=== PATIENT | female | born 1945 | race Caucasian/White ===

== ENCOUNTER 2019-04-07 13:00 | Outpatient (CLI) | payer MEDICARE, SELFPAY ==
[2019-04-07 13:24] LABS: Basophils Absolute Auto 0.1 K/mm3 (0.0-0.1); Basophils Percent Auto 0.8 % (0.2-1.2); Eosinophils Absolute Auto 0.2 K/mm3 (0-0.3); Eosinophils Percent Auto 2.8 % (0-4.4); Hematocrit 38.3 % (37.0-47.0); Hemoglobin 12.6 g/dL (12.0-15.0); Immature Granulocyte Absolute 0.01 K/mm3 (0.00-0.031); Immature Granulocyte Percent A 0.2 % (0-0.5); Lymphocytes Absolute Auto 2.12 K/mm3 (0.9-3.2); Lymphocytes Percent Auto 34.9 % (18.3-44.2); Mean Corpuscular HGB Conc 32.9 g/dl (32-36); Mean Corpuscular Hemoglobin 30.2 pg (26-34); Mean Corpuscular Volume 91.8 fl (80-100); Mean Platelet Volume 12.1 fl (7.4-10.4); Monocytes Absolute Auto 0.7 K/mm3 (0.1-0.6); Monocytes Percent Auto 11.2 % (2.6-8.5); Neutrophils Absolute Auto 3.1 K/mm3 (1.3-6.7); Neutrophils Percent Auto 50.1 % (45.5-73.1); Platelet Count Result 155 k/mm3 (150-375); Red Blood Count 4.17 M/mm3 (4.2-5.4); Red Cell Distribution Width 13.9 % (11.5-14.5); White Blood Count 6.1 K/mm3 (4.5-10.0)
[2019-04-07 13:27] LABS: Blood Urea Nitrogen 11 mg/dL (8-26); Carbon Dioxide 25 mmol/L (22-30); Chloride 103 mmol/L (98-109); Estimated Glomerular Filt Rate > 60; Glucose 115 mg/dL (70-105); Potassium 3.9 mmol/L (3.5-4.9); Sodium 140 mmol/L (138-146)
[2019-04-07 16:55] LABS: Alanine Aminotransferase 12 U/L (4-35); Albumin Level 3.4 g/dL (3.5-5.1); Alkaline Phosphatase 130 U/L (38-126); Aspartate Amino Transferase 20 U/L (14-36); Bilirubin,Total 0.6 mg/dL (0.2-1.3); Blood Urea Nitrogen 11 mg/dL (7-17); Calcium 8.8 mg/dL (8.4-10.2); Carbon Dioxide 25 mmol/L (22-30); Chloride 102 mmol/L (98-107); Estimated Glomerular Filt Rate > 60; Glucose 114 mg/dL (65-105); Potassium 4.2 mmol/L (3.4-5.0); Sodium 139 mmol/L (137-145)
== END 2019-04-07 13:01 | disposition home or self-care (01) ==
PROVIDERS: PCP Internal Medicine; Visit Provider Internal Medicine Hematology & Oncology
DX: D69.3 Immune thrombocytopenic purpura (principal)
CPT/HCPCS: 36415; 80048; 80053; 85025

== ENCOUNTER 2019-07-15 16:55 | IRF | payer MEDICARE, SELFPAY ==
--- NOTE | ~2019-07-15 | US_ITS ---
EXAMINATION:US venous doppler LE BI INDICATION:Right leg pain and edema TECHNIQUE: Multiple grayscale, color flow and Doppler images of the right lower extremity deep venous systems were obtained and reviewed. COMPARISON:No prior studies for comparison. FINDINGS: There is extensive deep venous thrombosis of the right lower extremity including the femora l, popliteal, posterior tibial, peroneal, gastrocnemius and greater saphenous veins. There is normal flow, compressibility and augmentation the left lower extremity veins. IMPRESSION: 1: Extensive deep venous thrombosis of the right lower extremity. Findings communicated to the [facility] Rhina etienne, by Dr. Wood on 07/26/2019 12:38 PM. Reviewed, dictated and finalized at location A. IMPRESSION: 1: Extensive deep venous thrombosis of the right lower extremity. Findings communicated to the [facility] Rhina etienne, by Dr. Wood on 07/26/2019 12:38 PM .
[2019-07-15 16:55] VITALS: BP 141/75; PULSE 76; RESP 19; TEMP 36.2; O2SAT 99; BMI 39.9
--- NOTE | 2019-07-15 17:31 | ADMGEN ---
This patient, Ricarda Stephen, was admitted to [facility] Room 224-02. Patient/family oriented to hospital policies and general routines including ID bracelet, bed and alarms, visiting hours, pain management, procedures, bathroom and other care routines, personal items, smoking policy, room service/diet, and visiting hours. Valuables list has been completed. Information on how to activate the Rapid Response Team has been discussed. Patient/Family are encouraged to report perceived risks to care and to ask questions if they do not understand what they are told or what they should do.
[2019-07-15 18:42] VITALS: PULSE 76; RESP 19; O2SAT 99
[2019-07-15] MEDS: MORPHINE SULFATE 15 MG TABCR PO (20:21)
[2019-07-15] MEDS: SENNA/DOCUSATE SODIUM TABLET 1 TAB PO (20:21)
[2019-07-15] MEDS: GABAPENTIN 300 MG CAPSULE PO (20:50)
[2019-07-15 20:51] VITALS: PULSE 76
[2019-07-15] MEDS: carvediloL 12.5 MG TABLET PO (20:51)
[2019-07-15 22:00] VITALS: BP 107/57; PULSE 87; RESP 18; TEMP 36.4; O2SAT 99
[2019-07-16 04:38] LABS: Basophils Absolute Auto 0.1 K/mm3 (0.0-0.1); Basophils Percent Auto 0.5 % (0.2-1.2); Eosinophils Absolute Auto 0.3 K/mm3 (0-0.3); Eosinophils Percent Auto 2.5 % (0-4.4); Hematocrit 26.9 % (37.0-47.0); Hemoglobin 8.7 g/dL (12.0-15.0); Immature Granulocyte Absolute 0.08 K/mm3 (0.00-0.031); Immature Granulocyte Percent A 0.8 % (0-0.5); Lymphocytes Absolute Auto 2.23 K/mm3 (0.9-3.2); Lymphocytes Percent Auto 21.9 % (18.3-44.2); Mean Corpuscular HGB Conc 32.3 g/dl (32-36); Mean Corpuscular Hemoglobin 29.7 pg (26-34); Mean Corpuscular Volume 91.8 fl (80-100); Mean Platelet Volume 12.3 fl (7.4-10.4); Monocytes Absolute Auto 0.9 K/mm3 (0.1-0.6); Monocytes Percent Auto 9.2 % (2.6-8.5); Neutrophils Absolute Auto 6.6 K/mm3 (1.3-6.7); Neutrophils Percent Auto 65.1 % (45.5-73.1); Platelet Count Result 155 k/mm3 (150-375); Red Blood Count 2.93 M/mm3 (4.2-5.4); Red Cell Distribution Width 17.3 % (11.5-14.5); White Blood Count 10.2 K/mm3 (4.5-10.0)
[2019-07-16 04:48] LABS: Blood Urea Nitrogen 13 mg/dL (7-17); Calcium 7.6 mg/dL (8.4-10.2); Carbon Dioxide 31 mmol/L (22-30); Chloride 103 mmol/L (98-107); Estimated CRCL calculation 98 ml/min; Estimated Glomerular Filt Rate > 60; Glucose 102 mg/dL (65-105); Potassium 3.8 mmol/L (3.4-5.0); Sodium 135 mmol/L (137-145)
[2019-07-16 06:00] VITALS: BP 110/49; PULSE 80; RESP 16; TEMP 36.6; O2SAT 98
[2019-07-16] MEDS: ACETAMINOPHEN 500 MG TABLET 1000 MG PO ×4 (06:18→17:54)
[2019-07-16] MEDS: GABAPENTIN 300 MG CAPSULE PO ×3 (08:34→17:54)
[2019-07-16] MEDS: LIDOCAINE 5% PATCH 1 PATCH TOPICAL (08:34)
[2019-07-16] MEDS: SENNA/DOCUSATE SODIUM TABLET 1 TAB PO ×2 (08:34→20:11)
[2019-07-16 08:35] VITALS: PULSE 80
[2019-07-16] MEDS: CHOLECALCIFEROL 1,000 UNIT TABLET 6000 UNITS PO (08:35)
[2019-07-16] MEDS: ATORVASTATIN 40 MG TABLET PO (08:35)
[2019-07-16] MEDS: carvediloL 12.5 MG TABLET PO ×2 (08:35→20:11)
[2019-07-16] MEDS: lisinopriL 2.5 MG TABLET PO (08:35)
[2019-07-16] MEDS: PANTOPRAZOLE 40 MG TABLET PO (08:36)
[2019-07-16] MEDS: polyethylene glycoL 3350 17 GM POWD.PACK PO (08:36)
[2019-07-16] MEDS: MULTIVITAMINS /C LUTEIN (CENTRUM SILVER) TABLET *BKC 1 TAB PO (08:36)
[2019-07-16] MEDS: MORPHINE SULFATE 15 MG TABCR PO ×2 (08:37→20:10)
--- NOTE | 2019-07-16 12:06 | WPDNEURORHBP ---
Subjective Date/time seen: 07/16/19 12:06 Interval history: HISTORY OF PRESENT ILLNESS: The patient's primary rehab impairment category is 0 9/orthopedic/other The etiologic diagnosis is 3 column hypertension injury T12-L1 and L5-S1 I saw this patient [id number] on July 16, 2019 at 10:00 a.m. The patient is a 74-year-old white woman with a past medical history of atrial fibrillation, hypertension, hyperlipidemia, DVT, degenerative joint disease and prior transient ischemic attack also a long history of chronic ITP as per her daughter who presented to [facility] and July 06, 2019 following a fall. Imaging revealed a 3 column hyperventilation injury at T12-L1 and L5-S1 orthopedic surgery was consulted and the patient underwent an instrument posterior spinal fusion from T10 to pelvis on July 15, [address] Villegas. Patient was also noted to have right lower extremity DVT) femoral through popliteal) so vascular surgery placed and IVC filter on July 14 T as well. She is on spinal precautions, no lifting, bending, twisting, no hip flexion and head of the bed flat when rolling patient (close. Postoperative the patient has experienced acute blood-loss anemia acute post artery pain high drain output, hypertension, acute respiratory insufficiency and electrolyte imbalances. She is currently hemodynamically stable with a hemoglobin of 8.6. Acute postoperative pain is in being managed with oral analgesics. Drain output was monitored and drains were removed on July 15, 2019. Hypertension is stable. Acute respiratory insufficiency has resolved the patient is currently on room air. The Abundio lysed will need to be monitored replaced as necessary. The patient is status post IVC filter and is on sequential compressive devices and Lovenox for the DVT prophylaxis however I see the discharge medications have Eliquis 2.5 milligram twice a day. The patient actually is to start the anticoagulation on July 21, 2019. It is also worth noted the patient has idiopathic thrombocytopenic purpura and is followed by manager golf she also has pre-existing radiculopathy of the lower back. The patient has not traveled outside the [place] or had contact with someone who is ill that has traveled outside the [place] in the . The patient has not traveled to an area of the [place] that is experiencing known transmission of the Coronavirus and has not had close personal contact with anyone that has. The patient does not have a fever. The patient is not experiencing lower respiratory illness symptoms or shortness of breath. Therapy was initiated at the acute care facility and the patient transferred to us from [facility] on July 15, 2019 on FALLS OR SURGERIES: The patient has had major surgeries in the 100 days prior to admission. They had falls in the past year. They had falls with injury in the past year. PAST MEDICAL HISTORY: atrial fibrillation, degenerative joint disease, deep venous thrombosis, transit ischemic attack, slowly progressive dementia as per daughter's history, idiopathic thrombocytopenic purpura for which she is on Promacta 50 milligram p.o. daily as per Hematology PAST SURGICAL HISTORY: breast biopsy, cholecystectomy, bilateral total knee replacements. SOCIAL HISTORY: Patient lives alone in a 1 story home with small ramp to enter. Patient reported that she can go up and down 4 steps independently when out in community. Patient also reported that she does not use an assistive device in her home. She uses her cane or wheel walker out in the community occasionally when she has increased pain. Patient was totally independent with all ADLs, IADLs LEs, driving and mobility. The patient has 2 daughters who live nearby and can assist after rehab. One of her daughter is a nurse practitioner whom I am familiar with and I have spoken with her just today about her past medical illnesses and slowly p
[2019-07-16 12:33] VITALS: BMI 39.9
[2019-07-16 14:00] VITALS: BP 113/57; PULSE 74; RESP 17; TEMP 36.1; O2SAT 98
--- NOTE | 2019-07-16 15:55 | RPD ---
INDIVIDUALIZED PLAN OF CARE FOR Ricarda Stephen Brief Synthesis of Pre-Admission Screen, Post-Admission Evaluation and Therapy Evaluations: The patient presents to rehab with 3 column hypertextension injury T12-L1 and L5-S1. Comorbidities include status post [id number] posterior spinal fusion, acute blood loss anemia, acute postoperative pain, hypocalcemia, degenerative joint disease, hypertension, hyperlipidemia, DVT status post IVC filter placement, acute respiratory insufficiency, gastroesophageal reflux disease, hypomagnesmia, leukocytosis.The patient requires physician services for medical oversight, management of postop complications in setting of present comorbidities, and pain management. The patient requires nursing services for DVT prophylactics, infection protection, medication management and education, pressure relief, and wound care. Deficits include:ADLs, Balance, Endurance, Family Training/Education, Mobility, Pain Management, ROM, Safety, Strength,Transfers Wireless Sales Consultant/Case Management for: Discharge Planning and Patient/Family Counseling Physical Therapy: 5 days per week for 75 minutes. Treatments may include: Therapeutic Exercise, Gait Training, Neuromuscular Re-education, Transfer Training, Community Reintegration, Bed Mobility, Patient/Family Education, Wheelchair Mobility Group Therapy/Concurrent Therapy Rationales: -Improve attention span during functional activities in a distracted environment. -Enhance problem solving and/or adequate judgment skills during functional activities in a distracted environment. -Promote increased safety awareness in a distracted environment to reduce fall risk with functional tasks, transfers, and ambulation to allow a more safe, self-sufficient return to the home environment. -Improve dynamic balance skills to promote safety and independence with functional activities in a distracted environment for maximum gain. Occupational Therapy: 5 days per week for 75 minutes. Treatments may include: Therapeutic Exercise, Therapeutic Activity, Cognitive Training, Self-Care Transfer Training, Community Reintegration, Home Management, Patient/Family Education, Wheelchair Mobility Training, Energy Conservation Training Group Therapy/Concurrent Therapy Rationales: -Allow therapist to observe and teach generalization and carry-over of skills learned in individual therapy. -Enhance problem solving and sequencing skills during therapeutic activities in a distracted environment. -Promote increased safety awareness in a realistic setting to reduce fall risk with functional tasks due to visual and verbal distractions. -Increase functional level with ADLs, ADL transfers and use of adaptive equipment through therapeutic activities with others while promoting safety to allow a more safe, self-sufficient return home. Speech Therapy: 5 days per week for 30 minutes. Treatments may include: Dysphasia Therapy, Speech/Language/Communication Therapy, Cognitive Training, Patient/Family Education Group Therapy/Concurrent Therapy - Rationale: -Allow therapist to observe and teach generalization and carry-over of skills learned in individual therapy. -Improve comprehension skills with complex or abstract ideas through discussion in a realistic setting. -Enhance problem solving skills with complex issues during activities in a distracted environment. -Promote increased memory skills and concentration in a distracted environment for a safe transition home. -Improve attention and focus with language/communication skills in a realistic and supportive therapeutic setting. -Allow for practice of expression of basic needs and ideas through functional activities with others. Medical Prognosis: Good Anticipated Length of Stay: 12 days Rehab Goals: Eating Goal: 06-Independent Oral Hygiene Goal: 06-Independent Toileting Hygiene Goal: 06-Independent Shower/Bathe Self Goal: 04-Supervision or Touching Assistance Upper Body Dressing Goal: 06-Indep
[2019-07-16] MEDS: ENOXAPARIN 40 MG/0.4 ML SYRINGE SUB-Q (17:54)
[2019-07-16 20:11] VITALS: PULSE 80
[2019-07-16 21:38] VITALS: BP 107/52; PULSE 71; RESP 18; TEMP 36.8; O2SAT 99
[2019-07-17] MEDS: ACETAMINOPHEN 500 MG TABLET 1000 MG PO ×4 (01:42→17:47)
[2019-07-17 05:43] VITALS: BP 104/58; PULSE 85; RESP 18; TEMP 37.2; O2SAT 95
[2019-07-17] MEDS: ATORVASTATIN 40 MG TABLET PO (08:53)
[2019-07-17] MEDS: CHOLECALCIFEROL 1,000 UNIT TABLET 6000 UNITS PO (08:54)
[2019-07-17] MEDS: SENNA/DOCUSATE SODIUM TABLET 1 TAB PO ×2 (08:54→19:47)
[2019-07-17] MEDS: lisinopriL 2.5 MG TABLET PO (08:55)
[2019-07-17] MEDS: GABAPENTIN 300 MG CAPSULE PO ×3 (08:55→17:46)
[2019-07-17] MEDS: ENOXAPARIN 40 MG/0.4 ML SYRINGE SUB-Q (08:55)
[2019-07-17] MEDS: LIDOCAINE 5% PATCH 1 PATCH TOPICAL (08:55)
[2019-07-17] MEDS: PANTOPRAZOLE 40 MG TABLET PO (08:56)
[2019-07-17] MEDS: polyethylene glycoL 3350 17 GM POWD.PACK PO (08:56)
[2019-07-17] MEDS: MULTIVITAMINS /C LUTEIN (CENTRUM SILVER) TABLET *BKC 1 TAB PO (08:56)
[2019-07-17] MEDS: MORPHINE SULFATE 15 MG TABCR PO ×2 (08:57→19:54)
[2019-07-17 08:58] VITALS: PULSE 85
[2019-07-17] MEDS: carvediloL 12.5 MG TABLET PO ×2 (08:58→19:47)
[2019-07-17 12:05] VITALS: O2SAT 25; O2SAT 50
[2019-07-17 14:00] VITALS: BP 104/65; PULSE 74; RESP 16; TEMP 36.3; O2SAT 96
--- NOTE | 2019-07-17 15:36 | PHAR ---
HOME MEDICATION VERIFIED BY PHARMACY PROMACTA 50MG TABLET TAKE 1 TAB PO ON AN EMPTY STOMACH 1 HOUR BEFORE OR 2 HOURS AFTER A MEAL RX#[id number]
--- NOTE | 2019-07-17 15:45 | WPDNEURORHBP ---
Subjective Date/time seen: 07/17/19 15:45 Interval history: this patient is here after having had is spinal surgery for multiple injury rather hypertension injury to her multiple vertebra and the lumbosacral spine and had posterior spinal fusion underlying medical issues include atrial fibrillation chronic ITP and was on chronic anticoagulation along with the bruising of the right knee and the right leg along with history of DVT she denies any headache nausea vomiting chest pain shortness of breath fever chills sore throat The other issue for which I was supposed to see her as an outpatient is the slowly progressive dementia we have done a mini-mental status examination and scored rather poorly at 18 and I am attempting to start her on Namenda I discussed with her daughter and she is in agreement but I will see what her platelets are what overall picture is then I will put her on it because some of the reason the poor score on the mini-mental status could be the effect of the morphine also The patient denies any headache nausea vomiting chest pain shortness of breath fever chills or sore throat Review of Systems Review of Systems: All systems reviewed & are unremarkable except as noted in HPI and below Functional Status Ambulation Ability Ambulation Assistive Devices: Walker, Wheeled Transfers Ability Ability to Transfer In/Out of Chair: Minimum Assistance X 1 Exam Const: General: comfortable and no acute distress HENMT: General nose exam: Normal nares present Mouth: Yes moist mucous membranes Eyes: General: appearance normal, both eyes and all related structures Neck: Neck: supple and no JVD Resp: Effort & Inspection: normal respiratory effort Auscultation: clear to auscultation bilaterally Cardio: Other: rate controlled irregularly irregular rhythm GI: GI Palp: Yes Soft to palpation Auscultation: normal bowel sounds Back/Spine/Pelvis: Other: the incision from the posterior spinal surgery is clean Skin: General skin exam: normal color and no rashes or lesions noted Neuro: Other: patient is awake and alert well oriented however her short-term memory is poor she is unable to abstract she is unable to perform simple calculations unable to remember the previous presidents has right lower extremity weakness related to contusion with some swelling and of course she also has the a DVT in the most recent hospitalization at the [facility] but she has had the surgery performed Extrem: Other: right lower extremities painful right knee is swollen on the some bruising there Psych: Mental Status: mental status grossly normal Other: moderately severe memory deficit Objective Data Vital Signs Vital Signs: Vital Signs - 24 hr 07/16/19 20:11 07/16/19 21:38 07/17/19 05:43 Temperature 36.8 C 37.2 C Pulse Rate 80 71 85 Respiratory Rate 18 18 Blood Pressure 107/52 L 104/58 L Pulse Oximetry 99 95 07/17/19 08:58 07/17/19 14:00 Temperature 36.3 C L Pulse Rate 85 74 Respiratory Rate 16 Blood Pressure 104/65 Pulse Oximetry 96 Intake/Output Intake/Output: Intake & Output 07/14/19 07/15/19 07/16/19 07/17/19 23:59 23:59 23:59 23:59 Intake Total 840 600 Balance 840 600 Meds/Results Medications: Active Medications Generic Name Dose Route Start Last Admin Trade Name Freq PRN Reason Stop Dose Admin Acetaminophen 1,000 mg 07/16/19 00:00 07/17/19 12:52 Tylenol Tablet PO 1,000 mg Q6HR HARDEEP Administration Apixaban 2.5 mg 07/21/19 09:00 Eliquis PO BID HARDEEP Atorvastatin Calcium 40 mg 07/16/19 09:00 07/17/19 08:53 Lipitor PO 40 mg DAILY HARDEEP Administration Calcium Carbonate 500 mg 07/16/19 09:00 07/17/19 08:53 Os-Uriel 500 +D Tablet PO 500 mg QAM HARDEEP Administration Carvedilol 12.5 mg 07/15/19 21:00 07/17/19 08:58 Coreg PO 12.5 mg Q12HR HARDEEP Administration Cyclobenzaprine HCl 10 mg 07/15/19 18:31 Flexeril PO Q8H PRN Muscle Spa
[2019-07-17 19:47] VITALS: PULSE 72
[2019-07-17 20:00] VITALS: BP 111/48; PULSE 76; RESP 16; TEMP 37.1; O2SAT 97
[2019-07-18 04:36] LABS: Hematocrit 26.1 % (37.0-47.0); Hemoglobin 8.1 g/dL (12.0-15.0); Mean Corpuscular Hemoglobin 29.6 pg (26-34); Mean Corpuscular Volume 95.3 fl (80-100); Mean Platelet Volume 12.2 fl (7.4-10.4); Platelet Count Result 182 k/mm3 (150-375); Red Blood Count 2.74 M/mm3 (4.2-5.4); White Blood Count 8.4 K/mm3 (4.5-10.0)
[2019-07-18] MEDS: ACETAMINOPHEN 500 MG TABLET 1000 MG PO ×3 (05:53→17:40)
[2019-07-18 06:00] VITALS: BP 110/47; PULSE 78; RESP 20; TEMP 36.8; O2SAT 96
[2019-07-18] MEDS: ATORVASTATIN 40 MG TABLET PO (09:21)
[2019-07-18] MEDS: MULTIVITAMINS /C LUTEIN (CENTRUM SILVER) TABLET *BKC 1 TAB PO (09:21)
[2019-07-18] MEDS: PANTOPRAZOLE 40 MG TABLET PO (09:21)
[2019-07-18] MEDS: GABAPENTIN 300 MG CAPSULE PO ×3 (09:21→17:40)
[2019-07-18] MEDS: lisinopriL 2.5 MG TABLET PO (09:21)
[2019-07-18] MEDS: SENNA/DOCUSATE SODIUM TABLET 1 TAB PO ×2 (09:21→19:55)
[2019-07-18] MEDS: CHOLECALCIFEROL 1,000 UNIT TABLET 6000 UNITS PO (09:21)
[2019-07-18] MEDS: ENOXAPARIN 40 MG/0.4 ML SYRINGE SUB-Q (09:22)
[2019-07-18] MEDS: LIDOCAINE 5% PATCH 1 PATCH TOPICAL (09:22)
[2019-07-18] MEDS: polyethylene glycoL 3350 17 GM POWD.PACK PO (09:22)
[2019-07-18] MEDS: MORPHINE SULFATE 15 MG TABCR PO ×2 (09:29→19:58)
[2019-07-18 09:30] VITALS: PULSE 73
[2019-07-18] MEDS: carvediloL 12.5 MG TABLET PO ×2 (09:30→19:53)
[2019-07-18 14:00] VITALS: BP 92/71; PULSE 78; RESP 20; TEMP 36.3; O2SAT 97
--- NOTE | 2019-07-18 18:22 | WPDNEURORHBP ---
Subjective Date/time seen: 07/18/19 18:22 Interval history: this 74-year-old woman is here after having a posterior spinal fusion for T12-L1 and L5-S1 hyperextension injury she has underlying dementia chronic ITP overall she is stable denies any headache nausea vomiting chest pain or shortness of breath fever chills or sore throat Review of Systems Review of Systems: All systems reviewed & are unremarkable except as noted in HPI and below Functional Status Ambulation Ability Ability to Ambulate 10 Feet: Minimum Assistance X 1 Ambulation Assistive Devices: Walker, Wheeled Transfers Ability Ability to Transfer In/Out of Chair: Minimum Assistance X 1 Exam Const: General: comfortable and no acute distress HENMT: General nose exam: Normal nares present Mouth: Yes moist mucous membranes Eyes: General: appearance normal, both eyes and all related structures Neck: Neck: supple and no JVD Resp: Effort & Inspection: normal respiratory effort Auscultation: clear to auscultation bilaterally Cardio: Other: rate controlled atrial fibrillation GI: GI Palp: Yes Soft to palpation Auscultation: normal bowel sounds Skin: General skin exam: normal color and no rashes or lesions noted Neuro: Other: patient is awake and alert well oriented has [id number] cognitive deficit in the form of short-term memory and inability to perform simple calculations and obstructing along with generalized weakness the incision at the back is clean Extrem: Other: right lower extremity is is stable swollen the and swelling leg from the contusion she sustained when she fell Psych: Mental Status: mental status grossly normal Objective Data Vital Signs Vital Signs: Vital Signs - 24 hr 07/17/19 19:47 07/17/19 20:00 07/18/19 06:00 Temperature 37.1 C 36.8 C Pulse Rate 72 76 78 Respiratory Rate 16 20 Blood Pressure 111/48 L 110/47 L Pulse Oximetry 97 96 07/18/19 09:30 07/18/19 14:00 Temperature 36.3 C L Pulse Rate 73 78 Respiratory Rate 20 Blood Pressure 92/71 L Pulse Oximetry 97 Intake/Output Intake/Output: Intake & Output 07/15/19 07/16/19 07/17/19 07/18/19 23:59 23:59 23:59 23:59 Intake Total 840 840 480 Balance 840 840 480 Meds/Results Medications: Active Medications Generic Name Dose Route Start Last Admin Trade Name Freq PRN Reason Stop Dose Admin Acetaminophen 1,000 mg 07/16/19 00:00 07/18/19 17:40 Tylenol Tablet PO 1,000 mg Q6HR HARDEEP Administration Apixaban 2.5 mg 07/21/19 09:00 Eliquis PO BID [facility] Atorvastatin Calcium 40 mg 07/16/19 09:00 07/18/19 09:21 Lipitor PO 40 mg DAILY HARDEEP Administration Calcium Carbonate 500 mg 07/16/19 09:00 07/18/19 09:21 Os-Uriel 500 +D Tablet PO 500 mg QAM [facility] Administration Carvedilol 12.5 mg 07/15/19 21:00 07/18/19 09:30 Coreg PO 12.5 mg Q12HR [facility] Administration Cyclobenzaprine HCl 10 mg 07/15/19 18:31 Flexeril PO Q8H PRN Muscle Spasm Enoxaparin Sodium 40 mg 07/16/19 14:50 07/18/19 09:22 Lovenox SUB-Q 07/20/19 23:59 40 mg DAILY [facility] Administration Furosemide 20 mg 07/15/19 18:16 Lasix Tablet PO DAILY PRN Edema Gabapentin 300 mg 07/15/19 19:35 07/18/19 17:40 Neurontin PO 300 mg TID [facility] Administration Lidocaine 1 patch 07/16/19 09:00 07/18/19 09:22 Lidoderm TOPICAL 1 patch DAILY [facility] Administration Lisinopril 2.5 mg 07/16/19 09:00 07/18/19 09:21 Prinivil PO 2.5 mg DAILY [facility] Administration Morphine Sulfate 15 mg 07/15/19 21:00 07/18/19 09:29 Ms Contin PO 15 mg Q12HR [facility] Administration Multivitamins/Minerals 1 tab 07/16/19 09:00 07/18/19 09:21 Centrum Silver PO 1 tab DAILY [facility] Administration Naloxone HCl 0.1 mg 07/16/19 10:53 Narcan SUB-Q Q5MIN PRN Opioid Reversal Oxycodone HCl 10 mg 07/15/19 18:16 07/17/19 19:56 Roxicodone Ir Tablet PO 10 mg Q4H PRN Administration Pain
[2019-07-18 19:53] VITALS: PULSE 76
[2019-07-18 21:53] VITALS: BP 110/47; PULSE 77; RESP 20; TEMP 37; O2SAT 98
[2019-07-19] MEDS: ACETAMINOPHEN 500 MG TABLET 1000 MG PO ×4 (00:42→17:33)
[2019-07-19 06:00] VITALS: BP 116/47; PULSE 67; RESP 20; TEMP 36.9; O2SAT 99
[2019-07-19] MEDS: polyethylene glycoL 3350 17 GM POWD.PACK PO (08:43)
[2019-07-19 08:44] VITALS: PULSE 67
[2019-07-19] MEDS: carvediloL 12.5 MG TABLET PO ×2 (08:44→20:20)
[2019-07-19] MEDS: CHOLECALCIFEROL 1,000 UNIT TABLET 6000 UNITS PO (08:44)
[2019-07-19] MEDS: GABAPENTIN 300 MG CAPSULE PO ×3 (08:45→17:31)
[2019-07-19] MEDS: ENOXAPARIN 40 MG/0.4 ML SYRINGE SUB-Q (08:45)
[2019-07-19] MEDS: ATORVASTATIN 40 MG TABLET PO (08:45)
[2019-07-19] MEDS: SENNA/DOCUSATE SODIUM TABLET 1 TAB PO ×2 (08:45→20:20)
[2019-07-19] MEDS: MULTIVITAMINS /C LUTEIN (CENTRUM SILVER) TABLET *BKC 1 TAB PO (08:46)
[2019-07-19] MEDS: LIDOCAINE 5% PATCH 1 PATCH TOPICAL (08:46)
[2019-07-19] MEDS: lisinopriL 2.5 MG TABLET PO (08:46)
[2019-07-19] MEDS: PANTOPRAZOLE 40 MG TABLET PO (08:47)
[2019-07-19] MEDS: MORPHINE SULFATE 15 MG TABCR PO ×2 (08:47→20:20)
--- NOTE | 2019-07-19 10:30 | WPDNEURORHBP ---
Subjective Date/time seen: S/p spinal fusion from T10 to pelvic and right LE and S/PIVC [id number]/01/20 10:30 Review of Systems Review of Systems: All systems reviewed & are unremarkable except as noted in HPI and below Functional Status Ambulation Ability Ability to Ambulate 10 Feet: Minimum Assistance X 1 Ambulation Assistive Devices: Walker, Wheeled Transfers Ability Ability to Transfer In/Out of Chair: Minimum Assistance X 1 Exam Const: General: cooperative, comfortable and no acute distress HENMT: Head: normal to inspection General nose exam: No nasal discharge present Face and sinus: normal facial exam Mouth: Yes Normal oral and palatal mucosa present Eyes: General: appearance normal, both eyes and all related structures Neck: Neck: full ROM Chest: Chest palpation & inspection: normal inspection of the chest Resp: Auscultation: clear to auscultation bilaterally GI: Percussion: Yes normal to percussion Auscultation: normal bowel sounds Skin: General skin exam: no rashes or lesions noted Neuro: General: patient oriented x3 and moves all extremities Cranial nerves: Yes CN's II-XII intact bilaterally Cognition (Neuro): abnormal cognition Speech: normal speech Gait exam (Neuro): Unable to assess gait Motor exam (neuro): 5/5 motor strength present throughout (generalized weekness) Extrem: General: normal to inspection Psych: Appearance: grossly normal Speech and movement: Clear speech present Affect: normal affect Attitude: cooperative Thought process: Normal thought process present Insight: Fair insight present (Psych) Judgement: Fair judgement present (Psych) Objective Data Vital Signs Vital Signs: Vital Signs - 24 hr 07/18/19 14:00 07/18/19 19:53 07/18/19 21:53 Temperature 36.3 C L 37.0 C Pulse Rate 78 76 77 Respiratory Rate 20 20 Blood Pressure 92/71 L 110/47 L Pulse Oximetry 97 98 07/19/19 06:00 07/19/19 08:44 Temperature 36.9 C Pulse Rate 67 67 Respiratory Rate 20 Blood Pressure 116/47 L Pulse Oximetry 99 Intake/Output Intake/Output: Intake & Output 07/16/19 07/17/19 07/18/19 07/19/19 23:59 23:59 23:59 23:59 Intake Total 840 840 720 120 Balance 840 840 720 120 Meds/Results Medications: Active Medications Generic Name Dose Route Start Last Admin Trade Name Freq PRN Reason Stop Dose Admin Acetaminophen 1,000 mg 07/16/19 00:00 07/19/19 06:08 Tylenol Tablet PO 1,000 mg Q6HR HARDEEP Administration Apixaban 2.5 mg 07/21/19 09:00 Eliquis PO BID [facility] Atorvastatin Calcium 40 mg 07/16/19 09:00 07/19/19 08:45 Lipitor PO 40 mg DAILY HARDEEP Administration Calcium Carbonate 500 mg 07/16/19 09:00 07/19/19 08:45 Os-Uriel 500 +D Tablet PO 500 mg QAM [facility] Administration Carvedilol 12.5 mg 07/15/19 21:00 07/19/19 08:44 Coreg PO 12.5 mg Q12HR [facility] Administration Cyclobenzaprine HCl 10 mg 07/15/19 18:31 Flexeril PO Q8H PRN Muscle Spasm Enoxaparin Sodium 40 mg 07/16/19 14:50 07/19/19 08:45 Lovenox SUB-Q 07/20/19 23:59 40 mg DAILY [facility] Administration Furosemide 20 mg 07/15/19 18:16 Lasix Tablet PO DAILY PRN Edema Gabapentin 300 mg 07/15/19 19:35 07/19/19 08:45 Neurontin PO 300 mg TID [facility] Administration Lidocaine 1 patch 07/16/19 09:00 07/19/19 08:46 Lidoderm TOPICAL 1 patch DAILY [facility] Administration Lisinopril 2.5 mg 07/16/19 09:00 07/19/19 08:46 Prinivil PO 2.5 mg DAILY [facility] Administration Morphine Sulfate 15 mg 07/15/19 21:00 07/19/19 08:47 Ms Contin PO 15 mg Q12HR HARDEEP Administration Multivitamins/Minerals 1 tab 07/16/19 09:00 07/19/19 08:46 Centrum Silver PO 1 tab DAILY [facility] Administration Naloxone HCl 0.1 mg 07/16/19 10:53 Narcan SUB-Q Q5MIN PRN Opioid Reversal Oxycodone HCl 10 mg 07/15/19 18:16 07/17/19 19:56 Roxicodone Ir Tablet PO 10 mg Q4H PRN Administration Pain Pantopr
[2019-07-19 14:00] VITALS: BP 100/55; PULSE 74; RESP 18; TEMP 36.9; O2SAT 100
[2019-07-19] MEDS: SILVERGEL (ELTA) 45 ML 1 APPLIC TOPICAL (14:14)
[2019-07-19 20:20] VITALS: PULSE 78
[2019-07-19 21:38] VITALS: BP 110/49; PULSE 77; RESP 20; TEMP 36.9; O2SAT 99
[2019-07-20] MEDS: ACETAMINOPHEN 500 MG TABLET 1000 MG PO ×4 (05:56→17:10)
[2019-07-20 06:00] VITALS: BP 115/45; PULSE 70; RESP 16; TEMP 36.9; O2SAT 99
[2019-07-20] MEDS: CHOLECALCIFEROL 1,000 UNIT TABLET 6000 UNITS PO (08:23)
[2019-07-20] MEDS: lisinopriL 2.5 MG TABLET PO (08:23)
[2019-07-20] MEDS: MORPHINE SULFATE 15 MG TABCR PO ×2 (08:23→20:49)
[2019-07-20] MEDS: LIDOCAINE 5% PATCH 1 PATCH TOPICAL (08:23)
[2019-07-20] MEDS: ENOXAPARIN 40 MG/0.4 ML SYRINGE SUB-Q (08:23)
[2019-07-20] MEDS: ATORVASTATIN 40 MG TABLET PO (08:23)
[2019-07-20] MEDS: GABAPENTIN 300 MG CAPSULE PO ×3 (08:23→17:08)
[2019-07-20 08:24] VITALS: PULSE 70
[2019-07-20] MEDS: SENNA/DOCUSATE SODIUM TABLET 1 TAB PO ×2 (08:24→20:48)
[2019-07-20] MEDS: PANTOPRAZOLE 40 MG TABLET PO (08:24)
[2019-07-20] MEDS: carvediloL 12.5 MG TABLET PO ×2 (08:24→20:47)
[2019-07-20] MEDS: MULTIVITAMINS /C LUTEIN (CENTRUM SILVER) TABLET *BKC 1 TAB PO (08:24)
[2019-07-20] MEDS: polyethylene glycoL 3350 17 GM POWD.PACK PO (08:24)
[2019-07-20 14:00] VITALS: BP 111/40; PULSE 70; RESP 18; TEMP 36.3; O2SAT 97
--- NOTE | 2019-07-20 14:03 | WPDNEURORHBP ---
Subjective Date/time seen: 07/20/19 14:03 Interval history: this patient is here after having had a posterior spinal fusion for multiple vertebral fractures she is doing fairly well and walked 40 feet with the wheel walker with minimum assist she has underlying dementia and I am planning to start her on Namenda we discussed in the team conference Jos Em telephone with the 2 daughters present questions were answered the patient is not any discomfort her platelets are fine denies any headache nausea vomiting chest pain or shortness of breath Functional Status Ambulation Ability Ability to Ambulate 10 Feet: Minimum Assistance X 1 Ability to Ambulate 50 Feet With 2 Turns: Minimum Assistance X 1 Ambulation Assistive Devices: Walker, Wheeled Transfers Ability Ability to Transfer In/Out of Chair: Minimum Assistance X 1 Objective Data Vital Signs Vital Signs: Vital Signs - 24 hr 07/19/19 20:20 07/19/19 21:38 07/20/19 06:00 Temperature 36.9 C 36.9 C Pulse Rate 78 77 70 Respiratory Rate 20 16 Blood Pressure 110/49 L 115/45 L Pulse Oximetry 99 99 07/20/19 08:24 Temperature Pulse Rate 70 Respiratory Rate Blood Pressure Pulse Oximetry Intake/Output Intake/Output: Intake & Output 07/17/19 07/18/19 07/19/19 07/20/19 23:59 23:59 23:59 23:59 Intake Total 840 720 560 480 Balance 840 720 560 480 Meds/Results Medications: Active Medications Generic Name Dose Route Start Last Admin Trade Name Freq PRN Reason Stop Dose Admin Acetaminophen 1,000 mg 07/16/19 00:00 07/20/19 12:12 Tylenol Tablet PO 1,000 mg Q6HR HARDEEP Administration Apixaban 2.5 mg 07/21/19 09:00 Eliquis PO BID HARDEEP Atorvastatin Calcium 40 mg 07/16/19 09:00 07/20/19 08:23 Lipitor PO 40 mg DAILY HARDEEP Administration Calcium Carbonate 500 mg 07/16/19 09:00 07/20/19 08:23 Os-Uriel 500 +D Tablet PO 500 mg QAM HARDEEP Administration Carvedilol 12.5 mg 07/15/19 21:00 07/20/19 08:24 Coreg PO 12.5 mg Q12HR HARDEEP Administration Cyclobenzaprine HCl 10 mg 07/15/19 18:31 Flexeril PO Q8H PRN Muscle Spasm Enoxaparin Sodium 40 mg 07/16/19 14:50 07/20/19 08:23 Lovenox SUB-Q 07/20/19 23:59 40 mg DAILY HARDEEP Administration Furosemide 20 mg 07/15/19 18:16 Lasix Tablet PO DAILY PRN Edema Gabapentin 300 mg 07/15/19 19:35 07/20/19 12:12 Neurontin PO 300 mg TID HARDEEP Administration Lidocaine 1 patch 07/16/19 09:00 07/20/19 08:23 Lidoderm TOPICAL 1 patch DAILY HARDEEP Administration Lisinopril 2.5 mg 07/16/19 09:00 07/20/19 08:23 Prinivil PO 2.5 mg DAILY HARDEEP Administration Morphine Sulfate 15 mg 07/15/19 21:00 07/20/19 08:23 Ms Contin PO 15 mg Q12HR HARDEEP Administration Multivitamins/Minerals 1 tab 07/16/19 09:00 07/20/19 08:24 Centrum Silver PO 1 tab DAILY HARDEEP Administration Naloxone HCl 0.1 mg 07/16/19 10:53 Narcan SUB-Q Q5MIN PRN Opioid Reversal Oxycodone HCl 10 mg 07/15/19 18:16 07/17/19 19:56 Roxicodone Ir Tablet PO 10 mg Q4H PRN Administration Pain Pantoprazole Sodium 40 mg 07/16/19 09:00 07/20/19 08:24 Protonix PO 08/15/19 09:01 40 mg DAILY HARDEEP Administration Polyethylene Glycol 17 gm 07/16/19 09:00 07/20/19 08:24 Miralax PO 17 gm DAILY HARDEEP Administration Senna/Docusate Sodium 1 tab 07/15/19 21:00 07/20/19 08:24 Senokot S Tablet PO 1 tab Q12HR HARDEEP Administration Silver Nitrate 1 applic 07/19/19 09:00 07/19/19 14:14 Silvergel TOPICAL 1 applic DAILY HARDEEP Administration Vitamin D 6,000 unit 07/16/19 09:00 07/20/19 08:23 Vitamin D PO 6,000 unit DAILY HARDEEP Administration
[2019-07-20] MEDS: SILVERGEL (ELTA) 45 ML 1 APPLIC TOPICAL (17:07)
[2019-07-20] MEDS: MEMANTINE 5 MG TABLET PO (17:10)
[2019-07-20 20:34] LABS: Folic Acid > 20.0 ng/mL (2.76->20)
[2019-07-20 20:47] VITALS: PULSE 64
[2019-07-20 22:00] VITALS: BP 149/95; PULSE 73; RESP 18; TEMP 37; O2SAT 100
[2019-07-21] MEDS: ACETAMINOPHEN 500 MG TABLET 1000 MG PO ×4 (00:27→18:04)
[2019-07-21 06:00] VITALS: BP 109/47; PULSE 69; RESP 20; TEMP 36.9; O2SAT 97
[2019-07-21] MEDS: APIXABAN 2.5 MG TABLET PO ×2 (09:13→18:02)
[2019-07-21] MEDS: ATORVASTATIN 40 MG TABLET PO (09:13)
[2019-07-21] MEDS: CHOLECALCIFEROL 1,000 UNIT TABLET 6000 UNITS PO (09:14)
[2019-07-21] MEDS: SENNA/DOCUSATE SODIUM TABLET 1 TAB PO (09:14)
[2019-07-21 09:15] VITALS: PULSE 78
[2019-07-21] MEDS: lisinopriL 2.5 MG TABLET PO (09:15)
[2019-07-21] MEDS: MULTIVITAMINS /C LUTEIN (CENTRUM SILVER) TABLET *BKC 1 TAB PO (09:15)
[2019-07-21] MEDS: LIDOCAINE 5% PATCH 1 PATCH TOPICAL (09:15)
[2019-07-21] MEDS: carvediloL 12.5 MG TABLET PO (09:15)
[2019-07-21] MEDS: GABAPENTIN 300 MG CAPSULE PO ×3 (09:15→18:02)
[2019-07-21] MEDS: MEMANTINE 5 MG TABLET PO (09:15)
[2019-07-21] MEDS: polyethylene glycoL 3350 17 GM POWD.PACK PO (09:16)
[2019-07-21] MEDS: SILVERGEL (ELTA) 45 ML 1 APPLIC TOPICAL (09:16)
[2019-07-21] MEDS: PANTOPRAZOLE 40 MG TABLET PO (09:16)
[2019-07-21] MEDS: MORPHINE SULFATE 15 MG TABCR PO (09:17)
--- NOTE | 2019-07-21 10:27 | WPDNEURORHBP ---
Subjective Date/time seen: 07/21/19 10:27 Interval history: this 74-year-old woman is here post to posterior spinal fusion because of multiple injuries to her lumbar and thoracic vertebra her incision is clean has stitches and is goes from almost the lower part of the thoracic area down to her lower part of the lumbar area she does not have much of a complains of pain overall she has daily doing well the laboratory daughter reviewed shows that she does have a higher TSH and she would benefit from the use of the levothyroxine and it probably would help her underlying dementia from which she has been suffering from for at least couple of years she denies any headache nausea vomiting chest pain shortness of breath fever chills sore throat Review of Systems Review of Systems: All systems reviewed & are unremarkable except as noted in HPI and below Functional Status Ambulation Ability Ability to Ambulate 10 Feet: Minimum Assistance X 1 Ability to Ambulate 50 Feet With 2 Turns: Minimum Assistance X 1 Ambulation Assistive Devices: Walker, Wheeled Transfers Ability Ability to Transfer In/Out of Chair: Minimum Assistance X 1 Exam Const: General: comfortable and no acute distress HENMT: General nose exam: Normal nares present Mouth: Yes moist mucous membranes Eyes: General: appearance normal, both eyes and all related structures Neck: Neck: supple and no JVD Resp: Effort & Inspection: normal respiratory effort Auscultation: clear to auscultation bilaterally Cardio: Other: irregularly irregular rhythm GI: GI Palp: Yes Soft to palpation Auscultation: normal bowel sounds Skin: General skin exam: normal color and no rashes or lesions noted Neuro: Other: she has mild dementia however able to follow commands understand the instructions the tentative memory is poor and likewise the short-term memory is poor she has generalized weakness due to multiple factors and she is making progress Extrem: Other: she has dystrophic changes of her lower legs right more so than the left which has been present for quite some time it may be that it is due to venous insufficiency or some other issues Objective Data Vital Signs Vital Signs: Vital Signs - 24 hr 07/20/19 14:00 07/20/19 20:47 07/20/19 22:00 Temperature 36.3 C L 37.0 C Pulse Rate 70 64 73 Respiratory Rate 18 18 Blood Pressure 111/40 L 149/95 H Pulse Oximetry 97 100 07/21/19 06:00 07/21/19 09:15 Temperature 36.9 C Pulse Rate 69 78 Respiratory Rate 20 Blood Pressure 109/47 L Pulse Oximetry 97 Intake/Output Intake/Output: Intake & Output 07/18/19 07/19/19 07/20/19 07/21/19 23:59 23:59 23:59 23:59 Intake Total 720 560 720 240 Balance 720 560 720 240 Meds/Results Medications: Active Medications Generic Name Dose Route Start Last Admin Trade Name Freq PRN Reason Stop Dose Admin Acetaminophen 1,000 mg 07/16/19 00:00 07/21/19 05:40 Tylenol Tablet PO 1,000 mg Q6HR HARDEEP Administration Apixaban 2.5 mg 07/21/19 09:00 07/21/19 09:13 Eliquis PO 2.5 mg BID HARDEEP Administration Atorvastatin Calcium 40 mg 07/16/19 09:00 07/21/19 09:13 Lipitor PO 40 mg DAILY HARDEEP Administration Calcium Carbonate 500 mg 07/16/19 09:00 07/21/19 09:14 Os-Uriel 500 +D Tablet PO 500 mg QAM HARDEEP Administration Carvedilol 12.5 mg 07/15/19 21:00 07/21/19 09:15 Coreg PO 12.5 mg Q12HR HARDEEP Administration Cyclobenzaprine HCl 10 mg 07/15/19 18:31 Flexeril PO Q8H PRN Muscle Spasm Furosemide 20 mg 07/15/19 18:16 Lasix Tablet PO DAILY PRN Edema Gabapentin 300 mg 07/15/19 19:35 07/21/19 09:15 Neurontin PO 300 mg TID HARDEEP Administration Levothyroxine Sodium 50 mcg 07/22/19 06:30 Synthroid PO DAILY@0630 [facility]EP Lidocaine 1 patch 07/16/19 09:00 07/21/19 09:15 Lidoderm TOPICAL 1 patch DAILY HARDEEP Administration Lisinopril 2.5 mg 07/16/19 09:00 07/21/19 09:15 Prinivil PO 2.
[2019-07-21 14:00] VITALS: BP 110/45; PULSE 69; RESP 20; TEMP 36.3; O2SAT 99
[2019-07-21 22:00] VITALS: BP 133/52; PULSE 74; RESP 18; TEMP 36.2; O2SAT 100
[2019-07-22 00:40] VITALS: PULSE 78
[2019-07-22] MEDS: MORPHINE SULFATE 15 MG TABCR PO ×3 (00:40→20:32)
[2019-07-22] MEDS: carvediloL 12.5 MG TABLET PO ×3 (00:40→20:34)
[2019-07-22] MEDS: ACETAMINOPHEN 500 MG TABLET 1000 MG PO ×4 (00:41→17:36)
[2019-07-22] MEDS: SENNA/DOCUSATE SODIUM TABLET 1 TAB PO ×3 (00:41→20:33)
[2019-07-22 06:00] VITALS: BP 132/48; PULSE 72; RESP 17; TEMP 36.5; O2SAT 96
[2019-07-22 08:54] VITALS: PULSE 72
[2019-07-22] MEDS: CHOLECALCIFEROL 1,000 UNIT TABLET 6000 UNITS PO (08:54)
[2019-07-22] MEDS: ATORVASTATIN 40 MG TABLET PO (08:54)
[2019-07-22] MEDS: APIXABAN 2.5 MG TABLET PO ×2 (08:54→17:37)
[2019-07-22] MEDS: LIDOCAINE 5% PATCH 1 PATCH TOPICAL (08:55)
[2019-07-22] MEDS: polyethylene glycoL 3350 17 GM POWD.PACK PO (08:55)
[2019-07-22] MEDS: MULTIVITAMINS /C LUTEIN (CENTRUM SILVER) TABLET *BKC 1 TAB PO (08:55)
[2019-07-22] MEDS: SILVERGEL (ELTA) 45 ML 1 APPLIC TOPICAL (08:55)
[2019-07-22] MEDS: lisinopriL 2.5 MG TABLET PO (08:55)
[2019-07-22] MEDS: GABAPENTIN 300 MG CAPSULE PO ×3 (08:55→17:37)
[2019-07-22] MEDS: MEMANTINE 5 MG TABLET PO (08:55)
[2019-07-22] MEDS: PANTOPRAZOLE 40 MG TABLET PO (08:55)
[2019-07-22 14:00] VITALS: BP 110/41; PULSE 74; RESP 18; TEMP 36.3; O2SAT 98
[2019-07-22] MEDS: LEVOTHYROXINE SODIUM 50 MCG TABLET PO (20:30)
[2019-07-22 20:34] VITALS: PULSE 80
[2019-07-22 22:00] VITALS: BP 119/56; PULSE 79; RESP 18; TEMP 36.7; O2SAT 99
[2019-07-23] MEDS: ACETAMINOPHEN 500 MG TABLET 1000 MG PO ×4 (00:56→17:52)
[2019-07-23 04:34] LABS: Basophils Absolute Auto 0.1 K/mm3 (0.0-0.1); Basophils Percent Auto 1.1 % (0.2-1.2); Eosinophils Absolute Auto 0.2 K/mm3 (0-0.3); Hematocrit 26.2 % (37.0-47.0); Hemoglobin 8.1 g/dL (12.0-15.0); Immature Granulocyte Absolute 0.02 K/mm3 (0.00-0.031); Immature Granulocyte Percent A 0.3 % (0-0.5); Lymphocytes Absolute Auto 2.09 K/mm3 (0.9-3.2); Lymphocytes Percent Auto 33.3 % (18.3-44.2); Mean Corpuscular HGB Conc 30.9 g/dl (32-36); Mean Corpuscular Hemoglobin 29.7 pg (26-34); Mean Platelet Volume 11.3 fl (7.4-10.4); Monocytes Absolute Auto 0.7 K/mm3 (0.1-0.6); Monocytes Percent Auto 10.5 % (2.6-8.5); Neutrophils Absolute Auto 3.2 K/mm3 (1.3-6.7); Neutrophils Percent Auto 51.8 % (45.5-73.1); Platelet Count Result 163 k/mm3 (150-375); Red Blood Count 2.73 M/mm3 (4.2-5.4); Red Cell Distribution Width 17.9 % (11.5-14.5); White Blood Count 6.3 K/mm3 (4.5-10.0)
[2019-07-23 04:48] LABS: Blood Urea Nitrogen 16 mg/dL (7-17); Calcium 7.8 mg/dL (8.4-10.2); Carbon Dioxide 26 mmol/L (22-30); Chloride 106 mmol/L (98-107); Estimated CRCL calculation 83 ml/min; Estimated Glomerular Filt Rate > 60; Glucose 96 mg/dL (65-105); Sodium 135 mmol/L (137-145)
[2019-07-23] MEDS: LEVOTHYROXINE SODIUM 50 MCG TABLET PO (05:58)
[2019-07-23 06:00] VITALS: BP 104/44; PULSE 72; RESP 18; TEMP 37; O2SAT 96
[2019-07-23] MEDS: CHOLECALCIFEROL 1,000 UNIT TABLET 6000 UNITS PO (09:24)
[2019-07-23] MEDS: polyethylene glycoL 3350 17 GM POWD.PACK PO (09:24)
[2019-07-23] MEDS: SILVERGEL (ELTA) 45 ML 1 APPLIC TOPICAL (09:24)
[2019-07-23] MEDS: LIDOCAINE 5% PATCH 1 PATCH TOPICAL (09:24)
[2019-07-23 09:25] VITALS: PULSE 72
[2019-07-23] MEDS: ATORVASTATIN 40 MG TABLET PO (09:25)
[2019-07-23] MEDS: GABAPENTIN 300 MG CAPSULE PO ×3 (09:25→17:52)
[2019-07-23] MEDS: lisinopriL 2.5 MG TABLET PO (09:25)
[2019-07-23] MEDS: APIXABAN 2.5 MG TABLET PO ×2 (09:25→17:52)
[2019-07-23] MEDS: carvediloL 12.5 MG TABLET PO ×2 (09:25→20:17)
[2019-07-23] MEDS: SENNA/DOCUSATE SODIUM TABLET 1 TAB PO ×2 (09:25→20:17)
[2019-07-23] MEDS: PANTOPRAZOLE 40 MG TABLET PO (09:26)
[2019-07-23] MEDS: MULTIVITAMINS /C LUTEIN (CENTRUM SILVER) TABLET *BKC 1 TAB PO (09:26)
[2019-07-23] MEDS: MEMANTINE 5 MG TABLET PO (09:26)
[2019-07-23] MEDS: MORPHINE SULFATE 15 MG TABCR PO ×2 (09:27→20:19)
--- NOTE | 2019-07-23 12:20 | PCDIET ---
Nutrition Follow-Up Complete: Nutrition Diagnosis: Inadequate energy intake related to obesity/inactivity as evidenced by BMI: 40.0 Nutrition Goal: Intake of at least 75% of meals/supplements Goal met. Patient eating 100% of most meals on regular diet. Patient states she likes the food and denies c/o or concerns. Last recorded weight is 105.6 kg. Recommend obtaining new weight. Bowel Motility: +BM today. Labs Reviewed: Cr (0.6), Na (135), Ca (7.8) Meds Noted: Protonix, Miralax, Oscal 500 + D, Lasix, Centrum, Senokot, Vitamin D Additional Notes: Recommend checking albumin for calcium correction. Right ankle with stasis ulcer. Back with surgical incision. Abrasion on head. Will continue to monitor with same goal. Nutrition Monitoring and Evaluation: Follow up every 7 days.
[2019-07-23 14:00] VITALS: BP 106/53; PULSE 71; RESP 18; TEMP 36.6; O2SAT 100
--- NOTE | 2019-07-23 14:07 | WPDNEURORHBP ---
Subjective Date/time seen: 07/22/19 14:07 Interval history: the patient is doing fairly well except the right lower extremity pain and discomfort which in fact is a predominant complain she has otherwise she denies any headache nausea vomiting chest pain shortness of breath fever chills or sore throat she does not have a much of a back pain where she had the surgery done Review of Systems Review of Systems: All systems reviewed & are unremarkable except as noted in HPI and below Functional Status Ambulation Ability Ability to Ambulate 10 Feet: Contact Guard Ability to Ambulate 50 Feet With 2 Turns: Contact Guard Ability to Ambulate 150 Feet: Contact Guard Ambulation Assistive Devices: Walker, Wheeled Transfers Ability Ability to Transfer In/Out of Chair: Minimum Assistance X 1 Exam Const: General: comfortable and no acute distress HENMT: General nose exam: Normal nares present Mouth: Yes moist mucous membranes Eyes: General: appearance normal, both eyes and all related structures Neck: Neck: supple and no JVD Resp: Effort & Inspection: normal respiratory effort Auscultation: clear to auscultation bilaterally Cardio: Other: rate controlled atrial fibrillation GI: GI Palp: Yes Soft to palpation Auscultation: normal bowel sounds Back/Spine/Pelvis: Other: the incision does not have any drainage but have little redness Skin: General skin exam: normal color and no rashes or lesions noted Neuro: Other: patient is awake and alert will oriented and does have a component of underlying dementia does not have lateralizing weakness except the lower extremities are weak right lower extremity in particular where she had the DVT and also the IVC filter placed Extrem: Other: bruising of the right lower extremity from the fall she sustained which is improving and also the weakness Psych: Mental Status: mental status grossly normal Objective Data Vital Signs Vital Signs: Vital Signs - 24 hr 07/22/19 20:34 07/22/19 22:00 07/23/19 06:00 Temperature 36.7 C 37.0 C Pulse Rate 80 79 72 Respiratory Rate 18 18 Blood Pressure 119/56 L 104/44 L Pulse Oximetry 99 96 07/23/19 09:25 Temperature Pulse Rate 72 Respiratory Rate Blood Pressure Pulse Oximetry Intake/Output Intake/Output: Intake & Output 07/20/19 07/21/19 07/22/19 07/23/19 23:59 23:59 23:59 23:59 Intake Total 720 720 720 240 Balance 720 720 720 240 Meds/Results Medications: Active Medications Generic Name Dose Route Start Last Admin Trade Name Frejacek PRN Reason Stop Dose Admin Acetaminophen 1,000 mg 07/16/19 00:00 07/23/19 05:56 Tylenol Tablet PO 1,000 mg Q6HR HARDEEP Administration Apixaban 2.5 mg 07/21/19 09:00 07/23/19 09:25 Eliquis PO 2.5 mg BID HARDEEP Administration Atorvastatin Calcium 40 mg 07/16/19 09:00 07/23/19 09:25 Lipitor PO 40 mg DAILY HARDEEP Administration Calcium Carbonate 500 mg 07/16/19 09:00 07/23/19 09:25 Os-Uriel 500 +D Tablet PO 500 mg QAM HARDEEP Administration Carvedilol 12.5 mg 07/15/19 21:00 07/23/19 09:25 Coreg PO 12.5 mg Q12HR HARDEEP Administration Cyclobenzaprine HCl 10 mg 07/15/19 18:31 Flexeril PO Q8H PRN Muscle Spasm Furosemide 20 mg 07/15/19 18:16 Lasix Tablet PO DAILY PRN Edema Gabapentin 300 mg 07/15/19 19:35 07/23/19 09:25 Neurontin PO 300 mg TID HARDEEP Administration Levothyroxine Sodium 50 mcg 07/22/19 06:30 07/23/19 05:58 Synthroid PO 50 mcg DAILY@0630 [facility] Administration Lidocaine 1 patch 07/16/19 09:00 07/23/19 09:24 Lidoderm TOPICAL 1 patch DAILY HARDEEP Administration Lisinopril 2.5 mg 07/16/19 09:00 07/23/19 09:25 Prinivil PO 2.5 mg DAILY HARDEEP Administration Memantine 5 mg 07/20/19 14:05 07/23/19 09:26 Namenda PO 5 mg QAM HARDEEP Administration Morphine Sulfate 15 mg 07/15/19 21:00 07/23/19 09:27 Ms Contin PO 15 mg Q12HR HARDEEP Administration Multivitam
--- NOTE | 2019-07-23 15:54 | WPDNEURORHBP ---
Subjective Date/time seen: 07/23/19 15:54 Interval history: the patient is here and complaints of the right lower extremity pain and discomfort which is related to her fall she has had which had resulted to her lower spine injury the admitting diagnosis clearly as the post surgery with multiple thoracic and lumbar vertebral involvement the incision seems to be reddish and we have sent the pictures to the attending surgeon and we are waiting for their response the wound otherwise afebrile she denies any headache nausea vomiting chest pain shortness of breath fever chills sore throat Review of Systems Review of Systems: All systems reviewed & are unremarkable except as noted in HPI and below Functional Status Ambulation Ability Ability to Ambulate 10 Feet: Contact Guard Ability to Ambulate 50 Feet With 2 Turns: Contact Guard Ability to Ambulate 150 Feet: Contact Guard Ambulation Assistive Devices: Walker, Wheeled Transfers Ability Ability to Transfer In/Out of Chair: Minimum Assistance X 1 Exam Const: General: comfortable and no acute distress HENMT: General nose exam: Normal nares present Mouth: Yes moist mucous membranes Eyes: General: appearance normal, both eyes and all related structures Neck: Neck: supple and no JVD Resp: Effort & Inspection: normal respiratory effort Auscultation: clear to auscultation bilaterally Cardio: Rate: regular rate Rhythm: regular rhythm GI: GI Palp: Yes Soft to palpation Auscultation: normal bowel sounds Skin: General skin exam: normal color and no rashes or lesions noted Neuro: Other: patient remains awake alert and well oriented has a poor to fair short-term memory overall she is improving the limitation is the right lower extremity where she had the bruising after the fall of course has also DVT Extrem: Other: tender upper thigh and the right leg from the fall and possibly because of the fact that she has DVT Psych: Mental Status: mental status grossly normal Objective Data Vital Signs Vital Signs: Vital Signs - 24 hr 07/22/19 20:34 07/22/19 22:00 07/23/19 06:00 Temperature 36.7 C 37.0 C Pulse Rate 80 79 72 Respiratory Rate 18 18 Blood Pressure 119/56 L 104/44 L Pulse Oximetry 99 96 07/23/19 09:25 07/23/19 14:00 Temperature 36.6 C Pulse Rate 72 71 Respiratory Rate 18 Blood Pressure 106/53 L Pulse Oximetry 100 Intake/Output Intake/Output: Intake & Output 07/20/19 07/21/19 07/22/19 07/23/19 23:59 23:59 23:59 23:59 Intake Total 720 720 720 480 Balance 720 720 720 480 Meds/Results Medications: Active Medications Generic Name Dose Route Start Last Admin Trade Name Leah PRN Reason Stop Dose Admin Acetaminophen 1,000 mg 07/16/19 00:00 07/23/19 14:23 Tylenol Tablet PO 1,000 mg Q6HR HARDEEP Administration Apixaban 2.5 mg 07/21/19 09:00 07/23/19 09:25 Eliquis PO 2.5 mg BID HARDEEP Administration Atorvastatin Calcium 40 mg 07/16/19 09:00 07/23/19 09:25 Lipitor PO 40 mg DAILY HARDEEP Administration Calcium Carbonate 500 mg 07/16/19 09:00 07/23/19 09:25 Os-Uriel 500 +D Tablet PO 500 mg QAM HARDEEP Administration Carvedilol 12.5 mg 07/15/19 21:00 07/23/19 09:25 Coreg PO 12.5 mg Q12HR HARDEEP Administration Cyclobenzaprine HCl 10 mg 07/15/19 18:31 Flexeril PO Q8H PRN Muscle Spasm Furosemide 20 mg 07/15/19 18:16 Lasix Tablet PO DAILY PRN Edema Gabapentin 300 mg 07/15/19 19:35 07/23/19 14:23 Neurontin PO 300 mg TID HARDEEP Administration Levothyroxine Sodium 50 mcg 07/22/19 06:30 07/23/19 05:58 Synthroid PO 50 mcg DAILY@0630 HARDEEP Administration Lidocaine 1 patch 07/16/19 09:00 07/23/19 09:24 Lidoderm TOPICAL 1 patch DAILY HARDEEP Administration Lisinopril 2.5 mg 07/16/19 09:00 07/23/19 09:25 Prinivil PO 2.5 mg DAILY HARDEEP Administration Memantine 5 mg 07/20/19 14:05 07/23/19 09:26 Namenda PO 5 mg QAM HARDEEP Administration Mo
[2019-07-23 20:17] VITALS: PULSE 77
[2019-07-23 22:00] VITALS: BP 110/60; PULSE 71; RESP 18; TEMP 36.7; O2SAT 100
[2019-07-24] MEDS: ACETAMINOPHEN 500 MG TABLET 1000 MG PO ×3 (05:53→17:13)
[2019-07-24] MEDS: LEVOTHYROXINE SODIUM 50 MCG TABLET PO (05:53)
[2019-07-24 06:00] VITALS: BP 111/77; PULSE 63; RESP 18; TEMP 36.9; O2SAT 94
[2019-07-24 08:00] VITALS: PULSE 63; RESP 18; O2SAT 94
[2019-07-24] MEDS: GABAPENTIN 300 MG CAPSULE PO ×3 (09:59→17:13)
[2019-07-24] MEDS: CHOLECALCIFEROL 1,000 UNIT TABLET 6000 UNITS PO (09:59)
[2019-07-24] MEDS: SENNA/DOCUSATE SODIUM TABLET 1 TAB PO ×2 (09:59→20:58)
[2019-07-24 10:00] VITALS: PULSE 63
[2019-07-24] MEDS: ATORVASTATIN 40 MG TABLET PO (10:00)
[2019-07-24] MEDS: MULTIVITAMINS /C LUTEIN (CENTRUM SILVER) TABLET *BKC 1 TAB PO (10:00)
[2019-07-24] MEDS: carvediloL 12.5 MG TABLET PO ×2 (10:00→20:58)
[2019-07-24] MEDS: PANTOPRAZOLE 40 MG TABLET PO (10:00)
[2019-07-24] MEDS: lisinopriL 2.5 MG TABLET PO (10:00)
[2019-07-24] MEDS: MEMANTINE 5 MG TABLET PO (10:01)
[2019-07-24] MEDS: APIXABAN 2.5 MG TABLET PO ×2 (10:01→17:13)
[2019-07-24] MEDS: LIDOCAINE 5% PATCH 1 PATCH TOPICAL (10:01)
[2019-07-24] MEDS: polyethylene glycoL 3350 17 GM POWD.PACK PO (10:02)
[2019-07-24] MEDS: MORPHINE SULFATE 15 MG TABCR PO ×2 (10:05→20:58)
[2019-07-24] MEDS: SILVERGEL (ELTA) 45 ML 1 APPLIC TOPICAL (10:16)
[2019-07-24 14:00] VITALS: BP 113/50; PULSE 70; RESP 18; TEMP 36.3; O2SAT 98
[2019-07-24 20:58] VITALS: PULSE 70
[2019-07-24 22:00] VITALS: BP 123/54; PULSE 78; RESP 16; TEMP 36.1; O2SAT 100
[2019-07-25] MEDS: LEVOTHYROXINE SODIUM 50 MCG TABLET PO (05:55)
[2019-07-25] MEDS: ACETAMINOPHEN 500 MG TABLET 1000 MG PO ×3 (05:55→17:23)
[2019-07-25 06:00] VITALS: BP 125/51; PULSE 77; RESP 17; TEMP 36.5; O2SAT 97
[2019-07-25] MEDS: SILVERGEL (ELTA) 45 ML 1 APPLIC TOPICAL (10:03)
[2019-07-25 10:04] VITALS: PULSE 77
[2019-07-25] MEDS: carvediloL 12.5 MG TABLET PO ×2 (10:04→20:55)
[2019-07-25] MEDS: APIXABAN 2.5 MG TABLET PO ×2 (10:04→17:23)
[2019-07-25] MEDS: ATORVASTATIN 40 MG TABLET PO (10:04)
[2019-07-25] MEDS: CHOLECALCIFEROL 1,000 UNIT TABLET 6000 UNITS PO (10:04)
[2019-07-25] MEDS: MEMANTINE 5 MG TABLET PO (10:05)
[2019-07-25] MEDS: GABAPENTIN 300 MG CAPSULE PO ×3 (10:05→17:23)
[2019-07-25] MEDS: lisinopriL 2.5 MG TABLET PO (10:05)
[2019-07-25] MEDS: SENNA/DOCUSATE SODIUM TABLET 1 TAB PO ×2 (10:05→20:55)
[2019-07-25] MEDS: LIDOCAINE 5% PATCH 1 PATCH TOPICAL (10:05)
[2019-07-25] MEDS: polyethylene glycoL 3350 17 GM POWD.PACK PO (10:06)
[2019-07-25] MEDS: PANTOPRAZOLE 40 MG TABLET PO (10:06)
[2019-07-25] MEDS: MULTIVITAMINS /C LUTEIN (CENTRUM SILVER) TABLET *BKC 1 TAB PO (10:06)
[2019-07-25] MEDS: MORPHINE SULFATE 15 MG TABCR PO ×2 (10:07→20:58)
--- NOTE | 2019-07-25 11:52 | WPDNEURORHBP ---
Subjective Date/time seen: S/P fall with multiplevertebral injuries and lower extremity pain inaddition to right lower extrmity pain and DVT07/25/19 11:52 Review of Systems Review of Systems: All systems reviewed & are unremarkable except as noted in HPI and below Constitutional: Constitutional: Reports no additional constitutional complaints Functional Status Ambulation Ability Ability to Ambulate 10 Feet: Standby Assistance Ability to Ambulate 50 Feet With 2 Turns: Standby Assistance Ability to Ambulate 150 Feet: Standby Assistance Ambulation Assistive Devices: Walker, Wheeled Transfers Ability Ability to Transfer In/Out of Chair: Minimum Assistance X 1 Exam Const: General: cooperative and no acute distress Orientation/consciousness: oriented to person HENMT: Head: normal to inspection Eyes: General: appearance normal, both eyes and all related structures Neck: Neck: full ROM Chest: Chest palpation & inspection: normal inspection of the chest Resp: Effort & Inspection: normal respiratory effort Auscultation: clear to auscultation bilaterally Cardio: Rate: regular rate Rhythm: regular rhythm GI: Auscultation: normal bowel sounds Skin: General skin exam: no rashes or lesions noted Neuro: General: oriented to person Extrem: Right lower extremity: full ROM (pain) Psych: Appearance: grossly normal Objective Data Vital Signs Vital Signs: Vital Signs - 24 hr 07/24/19 14:00 07/24/19 20:58 07/24/19 22:00 Temperature 36.3 C L 36.1 C L Pulse Rate 70 70 78 Respiratory Rate 18 16 Blood Pressure 113/50 L 123/54 L Pulse Oximetry 98 100 07/25/19 06:00 07/25/19 10:04 Temperature 36.5 C Pulse Rate 77 77 Respiratory Rate 17 Blood Pressure 125/51 L Pulse Oximetry 97 Intake/Output Intake/Output: Intake & Output 07/22/19 07/23/19 07/24/19 07/25/19 23:59 23:59 23:59 23:59 Intake Total 720 720 760 240 Balance 720 720 760 240 Meds/Results Medications: Active Medications Generic Name Dose Route Start Last Admin Trade Name Freq PRN Reason Stop Dose Admin Acetaminophen 1,000 mg 07/16/19 00:00 07/25/19 05:55 Tylenol Tablet PO 1,000 mg Q6HR HARDEEP Administration Apixaban 2.5 mg 07/21/19 09:00 07/25/19 10:04 Eliquis PO 2.5 mg BID HARDEEP Administration Atorvastatin Calcium 40 mg 07/16/19 09:00 07/25/19 10:04 Lipitor PO 40 mg DAILY HARDEEP Administration Calcium Carbonate 500 mg 07/16/19 09:00 07/25/19 10:04 Os-Uriel 500 +D Tablet PO 500 mg QAM HARDEEP Administration Carvedilol 12.5 mg 07/15/19 21:00 07/25/19 10:04 Coreg PO 12.5 mg Q12HR HARDEEP Administration Cyclobenzaprine HCl 10 mg 07/15/19 18:31 Flexeril PO Q8H PRN Muscle Spasm Furosemide 20 mg 07/15/19 18:16 Lasix Tablet PO DAILY PRN Edema Gabapentin 300 mg 07/15/19 19:35 07/25/19 10:05 Neurontin PO 300 mg TID HARDEEP Administration Levothyroxine Sodium 50 mcg 07/22/19 06:30 07/25/19 05:55 Synthroid PO 50 mcg DAILY@0630 [facility] Administration Lidocaine 1 patch 07/16/19 09:00 07/25/19 10:05 Lidoderm TOPICAL 1 patch DAILY HARDEEP Administration Lisinopril 2.5 mg 07/16/19 09:00 07/25/19 10:05 Prinivil PO 2.5 mg DAILY HARDEEP Administration Memantine 5 mg 07/20/19 14:05 07/25/19 10:05 Namenda PO 5 mg QAM HARDEEP Administration Morphine Sulfate 15 mg 07/15/19 21:00 07/25/19 10:07 Ms Contin PO 15 mg Q12HR HARDEEP Administration Multivitamins/Minerals 1 tab 07/16/19 09:00 07/25/19 10:06 Centrum Silver PO 1 tab DAILY HARDEEP Administration Naloxone HCl 0.1 mg 07/16/19 10:53 Narcan SUB-Q Q5MIN PRN Opioid Reversal Oxycodone HCl 10 mg 07/15/19 18:16 07/17/19 19:56 Roxicodone Ir Tablet PO 10 mg Q4H PRN Administration Pain Pantoprazole Sodium 40 mg 07/16/19 09:00 07/25/19 10:06 Protonix PO 08/15/19 09:01 40 mg DAILY HARDEEP Administration Polyethylene Glycol 17 gm
[2019-07-25 14:00] VITALS: BP 101/57; PULSE 75; RESP 16; TEMP 36.7; O2SAT 100
[2019-07-25 20:55] VITALS: PULSE 72
[2019-07-25 22:00] VITALS: BP 110/48; PULSE 73; RESP 19; TEMP 36; O2SAT 99
[2019-07-26] MEDS: ACETAMINOPHEN 500 MG TABLET 1000 MG PO ×4 (00:46→17:14)
[2019-07-26] MEDS: LEVOTHYROXINE SODIUM 50 MCG TABLET PO (05:42)
[2019-07-26 06:00] VITALS: BP 112/59; PULSE 73; RESP 16; TEMP 36.2; O2SAT 97
[2019-07-26 08:00] VITALS: PULSE 76; RESP 16; O2SAT 97
[2019-07-26 08:07] VITALS: PULSE 74
[2019-07-26] MEDS: carvediloL 12.5 MG TABLET PO ×2 (08:07→20:20)
[2019-07-26] MEDS: SILVERGEL (ELTA) 45 ML 1 APPLIC TOPICAL (08:07)
[2019-07-26] MEDS: LIDOCAINE 5% PATCH 1 PATCH TOPICAL (08:07)
[2019-07-26] MEDS: CHOLECALCIFEROL 1,000 UNIT TABLET 6000 UNITS PO (08:07)
[2019-07-26] MEDS: polyethylene glycoL 3350 17 GM POWD.PACK PO (08:07)
[2019-07-26] MEDS: APIXABAN 2.5 MG TABLET PO ×2 (08:08→17:14)
[2019-07-26] MEDS: ATORVASTATIN 40 MG TABLET PO (08:08)
[2019-07-26] MEDS: MEMANTINE 5 MG TABLET PO (08:08)
[2019-07-26] MEDS: SENNA/DOCUSATE SODIUM TABLET 1 TAB PO ×2 (08:08→20:20)
[2019-07-26] MEDS: MULTIVITAMINS /C LUTEIN (CENTRUM SILVER) TABLET *BKC 1 TAB PO (08:08)
[2019-07-26] MEDS: lisinopriL 2.5 MG TABLET PO (08:08)
[2019-07-26] MEDS: PANTOPRAZOLE 40 MG TABLET PO (08:09)
[2019-07-26] MEDS: MORPHINE SULFATE 15 MG TABCR PO ×2 (08:11→20:22)
[2019-07-26] MEDS: GABAPENTIN 300 MG CAPSULE PO ×3 (08:11→17:14)
--- NOTE | 2019-07-26 12:32 | PC.NURSE ---
Phone report from radiology department stating patient had DVT in right lower extremity verified by doppler this date. Dr. Patel notified and verified patient was on Eliquis BID which will continue.
[2019-07-26 14:00] VITALS: BP 108/45; PULSE 76; RESP 20; TEMP 36.4; O2SAT 100
[2019-07-26 20:20] VITALS: PULSE 80
[2019-07-26 22:00] VITALS: BP 104/43; PULSE 54; RESP 20; TEMP 37.7; O2SAT 100
[2019-07-27 06:00] VITALS: BP 125/44; PULSE 80; RESP 18; TEMP 37.3; O2SAT 100
[2019-07-27] MEDS: ACETAMINOPHEN 500 MG TABLET 1000 MG PO ×4 (06:29→17:24)
[2019-07-27] MEDS: LEVOTHYROXINE SODIUM 50 MCG TABLET PO (06:32)
[2019-07-27 08:00] VITALS: PULSE 80; RESP 18; O2SAT 100
[2019-07-27] MEDS: APIXABAN 2.5 MG TABLET PO ×2 (08:54→17:21)
[2019-07-27] MEDS: PANTOPRAZOLE 40 MG TABLET PO (08:54)
[2019-07-27] MEDS: GABAPENTIN 300 MG CAPSULE PO ×3 (08:54→17:22)
[2019-07-27] MEDS: MEMANTINE 5 MG TABLET PO ×2 (08:54→17:22)
[2019-07-27] MEDS: MULTIVITAMINS /C LUTEIN (CENTRUM SILVER) TABLET *BKC 1 TAB PO (08:54)
[2019-07-27] MEDS: lisinopriL 2.5 MG TABLET PO (08:54)
[2019-07-27] MEDS: CHOLECALCIFEROL 1,000 UNIT TABLET 6000 UNITS PO (08:54)
[2019-07-27] MEDS: ATORVASTATIN 40 MG TABLET PO (08:54)
[2019-07-27 08:55] VITALS: PULSE 80
[2019-07-27] MEDS: carvediloL 12.5 MG TABLET PO ×2 (08:55→20:46)
[2019-07-27] MEDS: SENNA/DOCUSATE SODIUM TABLET 1 TAB PO ×2 (08:55→20:46)
[2019-07-27] MEDS: SILVERGEL (ELTA) 45 ML 1 APPLIC TOPICAL (08:56)
[2019-07-27] MEDS: LIDOCAINE 5% PATCH 1 PATCH TOPICAL (08:56)
[2019-07-27] MEDS: polyethylene glycoL 3350 17 GM POWD.PACK PO (08:56)
[2019-07-27] MEDS: MORPHINE SULFATE 15 MG TABCR PO ×2 (08:59→20:46)
[2019-07-27 14:00] VITALS: BP 108/54; PULSE 72; RESP 19; TEMP 36.3; O2SAT 100
--- NOTE | 2019-07-27 14:47 | WPDNEURORHBP ---
Subjective Date/time seen: 07/27/19 14:47 Interval history: this 74-year-old woman is here after having had posterior spinal fusion for multiple spinal vertebral fractures she is doing well the incision seems to be clean she does have an appointment according to her daughter coming Friday with the surgeon and they will look at the incision and then decide when to remove it the patient denies any headache nausea vomiting chest pain shortness of breath. Her underlying dementia roughly about the same Functional Status Ambulation Ability Ability to Ambulate 10 Feet: Independent Ability to Ambulate 50 Feet With 2 Turns: Independent Ability to Ambulate 150 Feet: Independent Ambulation Assistive Devices: Walker, Wheeled Transfers Ability Ability to Transfer In/Out of Chair: Minimum Assistance X 1 Exam Const: General: comfortable and no acute distress HENMT: General nose exam: Normal nares present Mouth: Yes moist mucous membranes Eyes: General: appearance normal, both eyes and all related structures Neck: Neck: supple and no JVD Resp: Effort & Inspection: normal respiratory effort Auscultation: clear to auscultation bilaterally Cardio: Rate: regular rate Rhythm: regular rhythm GI: GI Palp: Yes Soft to palpation Auscultation: normal bowel sounds Skin: General skin exam: normal color and no rashes or lesions noted Neuro: Other: patient is awake and alert well oriented however does have clear short-term memory deficit overall she has neurological E improved apart from side the underlying dementia it will be too early to say how much affect the Namenda has on it Extrem: General: normal to inspection Psych: Mental Status: mental status grossly normal Objective Data Vital Signs Vital Signs: Vital Signs - 24 hr 07/26/19 20:20 07/26/19 22:00 07/27/19 06:00 Temperature 37.7 C H 37.3 C Pulse Rate 80 54 L 80 Respiratory Rate 20 18 Blood Pressure 104/43 L 125/44 L Pulse Oximetry 100 100 07/27/19 08:00 07/27/19 08:55 Temperature Pulse Rate 80 80 Respiratory Rate 18 Blood Pressure Pulse Oximetry 100 Intake/Output Intake/Output: Intake & Output 07/24/19 07/25/19 07/26/19 07/27/19 23:59 23:59 23:59 23:59 Intake Total 760 274 720 978 Balance 760 716 720 480 Meds/Results Medications: Active Medications Generic Name Dose Route Start Last Admin Trade Name Freq PRN Reason Stop Dose Admin Acetaminophen 1,000 mg 07/16/19 00:00 07/27/19 13:10 Tylenol Tablet PO 1,000 mg Q6HR HARDEEP Administration Apixaban 2.5 mg 07/21/19 09:00 07/27/19 08:54 Eliquis PO 2.5 mg BID HARDEEP Administration Atorvastatin Calcium 40 mg 07/16/19 09:00 07/27/19 08:54 Lipitor PO 40 mg DAILY HARDEEP Administration Calcium Carbonate 500 mg 07/16/19 09:00 07/27/19 08:55 Os-Uriel 500 +D Tablet PO 500 mg QAM HARDEEP Administration Carvedilol 12.5 mg 07/15/19 21:00 07/27/19 08:55 Coreg PO 12.5 mg Q12HR [facility] Administration Cyclobenzaprine HCl 10 mg 07/15/19 18:31 Flexeril PO Q8H PRN Muscle Spasm Furosemide 20 mg 07/15/19 18:16 Lasix Tablet PO DAILY PRN Edema Gabapentin 300 mg 07/15/19 19:35 07/27/19 13:10 Neurontin PO 300 mg TID HARDEEP Administration Levothyroxine Sodium 50 mcg 07/22/19 06:30 07/27/19 06:32 Synthroid PO 50 mcg DAILY@0630 [facility] Administration Lidocaine 1 patch 07/16/19 09:00 07/27/19 08:56 Lidoderm TOPICAL 1 patch DAILY HARDEEP Administration Lisinopril 2.5 mg 07/16/19 09:00 07/27/19 08:54 Prinivil PO 2.5 mg DAILY HARDEEP Administration Memantine 5 mg 07/20/19 14:05 07/27/19 08:54 Namenda PO 5 mg QAM HARDEEP Administration Morphine Sulfate 15 mg 07/15/19 21:00 07/27/19 08:59 Ms Contin PO 15 mg Q12HR HARDEEP Administration Multivitamins/Minerals 1 tab 07/16/19 09:00 07/27/19 08:54 Centrum Silver PO 1 tab DAILY [facility] Administration Naloxone HCl 0.1 mg 07/16/19 10:53
[2019-07-27 20:46] VITALS: PULSE 71
[2019-07-27 22:00] VITALS: BP 110/42; PULSE 71; RESP 18; TEMP 37.2; O2SAT 98
[2019-07-28 05:16] LABS: Basophils Percent Auto 0.7 % (0.2-1.2); Eosinophils Absolute Auto 0.2 K/mm3 (0-0.3); Eosinophils Percent Auto 3.3 % (0-4.4); Hematocrit 26.6 % (37.0-47.0); Hemoglobin 8.2 g/dL (12.0-15.0); Immature Granulocyte Absolute 0.02 K/mm3 (0.00-0.031); Immature Granulocyte Percent A 0.3 % (0-0.5); Lymphocytes Absolute Auto 1.96 K/mm3 (0.9-3.2); Lymphocytes Percent Auto 32.7 % (18.3-44.2); Mean Corpuscular HGB Conc 30.8 g/dl (32-36); Mean Corpuscular Hemoglobin 29.3 pg (26-34); Mean Platelet Volume 12.3 fl (7.4-10.4); Monocytes Absolute Auto 0.6 K/mm3 (0.1-0.6); Monocytes Percent Auto 10.5 % (2.6-8.5); Neutrophils Absolute Auto 3.1 K/mm3 (1.3-6.7); Neutrophils Percent Auto 52.5 % (45.5-73.1); Platelet Count Result 147 k/mm3 (150-375); Red Cell Distribution Width 17.2 % (11.5-14.5)
[2019-07-28 05:47] LABS: Blood Urea Nitrogen 17 mg/dL (7-17); Calcium 7.9 mg/dL (8.4-10.2); Carbon Dioxide 26 mmol/L (22-30); Chloride 108 mmol/L (98-107); Estimated CRCL calculation 98 ml/min; Estimated Glomerular Filt Rate > 60; Glucose 87 mg/dL (65-105); Potassium 4.3 mmol/L (3.4-5.0); Sodium 136 mmol/L (137-145)
[2019-07-28 06:00] VITALS: BP 119/67; PULSE 93; RESP 18; TEMP 36.4; O2SAT 94
[2019-07-28] MEDS: LEVOTHYROXINE SODIUM 50 MCG TABLET PO (06:03)
[2019-07-28] MEDS: ACETAMINOPHEN 500 MG TABLET 1000 MG PO ×3 (06:04→12:51)
[2019-07-28 08:00] VITALS: PULSE 93; RESP 18; O2SAT 94
[2019-07-28] MEDS: CHOLECALCIFEROL 1,000 UNIT TABLET 6000 UNITS PO (09:24)
[2019-07-28] MEDS: GABAPENTIN 300 MG CAPSULE PO ×2 (09:25→12:51)
[2019-07-28] MEDS: lisinopriL 2.5 MG TABLET PO (09:25)
[2019-07-28] MEDS: ATORVASTATIN 40 MG TABLET PO (09:25)
[2019-07-28] MEDS: PANTOPRAZOLE 40 MG TABLET PO (09:25)
[2019-07-28] MEDS: APIXABAN 2.5 MG TABLET PO (09:25)
[2019-07-28] MEDS: SENNA/DOCUSATE SODIUM TABLET 1 TAB PO (09:25)
[2019-07-28] MEDS: MEMANTINE 5 MG TABLET PO (09:25)
[2019-07-28] MEDS: MULTIVITAMINS /C LUTEIN (CENTRUM SILVER) TABLET *BKC 1 TAB PO (09:25)
[2019-07-28] MEDS: LIDOCAINE 5% PATCH 1 PATCH TOPICAL (09:26)
[2019-07-28] MEDS: polyethylene glycoL 3350 17 GM POWD.PACK PO (09:26)
[2019-07-28] MEDS: carvediloL 12.5 MG TABLET PO (09:26)
[2019-07-28] MEDS: SILVERGEL (ELTA) 45 ML 1 APPLIC TOPICAL (09:26)
[2019-07-28] MEDS: MORPHINE SULFATE 15 MG TABCR PO (09:28)
--- NOTE | 2019-07-28 13:35 | WPDNEURORHBP ---
Subjective Date/time seen: 07/28/19 13:35 Interval history: this 74-year-old woman has finished over rehab program after having had surgery for her multiple vertebral fractures in her spine she has a follow-up appointment with the treating surgeon coming up early next week she is going to be discharged later this afternoon she denies any headache nausea vomiting chest pain shortness of breath fever chills sore throat Review of Systems Review of Systems: All systems reviewed & are unremarkable except as noted in HPI and below Functional Status Ambulation Ability Ability to Ambulate 10 Feet: Independent Ability to Ambulate 50 Feet With 2 Turns: Independent Ability to Ambulate 150 Feet: Independent Ambulation Assistive Devices: Walker, Wheeled Transfers Ability Ability to Transfer In/Out of Chair: Minimum Assistance X 1 Exam Const: General: comfortable and no acute distress HENMT: General nose exam: Normal nares present Mouth: Yes moist mucous membranes Eyes: General: appearance normal, both eyes and all related structures Neck: Neck: supple and no JVD Resp: Effort & Inspection: normal respiratory effort Auscultation: clear to auscultation bilaterally Cardio: Rate: regular rate Rhythm: regular rhythm GI: GI Palp: Yes Soft to palpation Auscultation: normal bowel sounds Skin: General skin exam: normal color and no rashes or lesions noted Neuro: Other: patient is awake and alert well oriented however is still not able to recall my name in spite of fact that I have been seeing her every day and the tells me that she does have at least a moderate dementia at this point overall however she has a nonfocal neurological examination and her strength and everything has improved both in the upper and lower extremities Extrem: General: normal to inspection Psych: Mental Status: mental status grossly normal Other: she does have a moderate short-term memory deficit Objective Data Vital Signs Vital Signs: Vital Signs - 24 hr 07/27/19 14:00 07/27/19 20:46 07/27/19 22:00 Temperature 36.3 C L 37.2 C Pulse Rate 72 71 71 Respiratory Rate 19 18 Blood Pressure 108/54 L 110/42 L Pulse Oximetry 100 98 07/28/19 06:00 07/28/19 08:00 Temperature 36.4 C Pulse Rate 93 93 Respiratory Rate 18 18 Blood Pressure 119/67 Pulse Oximetry 94 94 Intake/Output Intake/Output: Intake & Output 06/07/20 07/26/19 07/27/19 07/28/19 23:59 23:59 23:59 23:59 Intake Total 680 895 720 480 Balance 680 203 720 480 Meds/Results Medications: Active Medications Generic Name Dose Route Start Last Admin Trade Name Freq PRN Reason Stop Dose Admin Acetaminophen 1,000 mg 07/16/19 00:00 07/28/19 12:51 Tylenol Tablet PO 1,000 mg Q6HR HARDEEP Administration Apixaban 2.5 mg 07/21/19 09:00 07/28/19 09:25 Eliquis PO 2.5 mg BID HARDEEP Administration Atorvastatin Calcium 40 mg 07/16/19 09:00 07/28/19 09:25 Lipitor PO 40 mg DAILY HARDEEP Administration Calcium Carbonate 500 mg 07/16/19 09:00 07/28/19 09:25 Os-Uriel 500 +D Tablet PO 500 mg QAM HARDEEP Administration Carvedilol 12.5 mg 07/15/19 21:00 07/28/19 09:26 Coreg PO 12.5 mg Q12HR HARDEEP Administration Cyclobenzaprine HCl 10 mg 07/15/19 18:31 Flexeril PO Q8H PRN Muscle Spasm Furosemide 20 mg 07/15/19 18:16 Lasix Tablet PO DAILY PRN Edema Gabapentin 300 mg 07/15/19 19:35 07/28/19 12:51 Neurontin PO 300 mg TID HARDEEP Administration Levothyroxine Sodium 50 mcg 07/22/19 06:30 07/28/19 06:03 Synthroid PO 50 mcg DAILY@0630 HARDEEP Administration Lidocaine 1 patch 07/16/19 09:00 07/28/19 09:26 Lidoderm TOPICAL 1 patch DAILY HARDEEP Administration Lisinopril 2.5 mg 07/16/19 09:00 07/28/19 09:25 Prinivil PO 2.5 mg DAILY HARDEEP Administration Memantine 5 mg 07/27/19 17:00 07/28/19 09:25 Namenda PO 5 mg BID HARDEEP Administration Morphine Sulfate 15 mg 07/15/19 21:00
[2019-07-28 14:00] VITALS: BP 100/48; PULSE 68; RESP 17; TEMP 36.3; O2SAT 98
--- NOTE | 2019-07-28 16:19 | PC.NURSE ---
went over discharge instructions with patient and also went over how to do dressing changes to back and foot. extra mepilex dressings and extra coverlet dressings sent home with patient.
--- NOTE | 2019-07-31 15:30 | PM.DS ---
DS: Admitting Diagnosis Admitting Diagnosis Admitting Diagnosis: Other specified injuries of thorax, initial encounter DS: Discharge Diagnosis Discharge Diagnosis (1) Hypothyroidism: Code(s): E03.9 - Hypothyroidism, unspecified Status: Acute (2) Dementia: Code(s): F03.90 - Unspecified dementia without behavioral disturbance Status: Acute (3) S/P IVC filter: Code(s): Z95.828 - Presence of other vascular implants and grafts Status: Acute (4) DVT (deep venous thrombosis): Code(s): I82.409 - Acute embolism and thrombosis of unspecified deep veins of unspecified lower extremity Status: Acute (5) Atrial fibrillation: Code(s): I48.91 - Unspecified atrial fibrillation Status: Acute (6) 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: Code(s): Q87.89 - Other specified congenital malformation syndromes, not elsewhere classified; Q76.49 - Other congenital malformations of spine, not associated with scoliosis; Q10.0 - Congenital ptosis Status: Acute (7) Injury of spinal cord at L5 level: Code(s): S34.105A - Unspecified injury to L5 level of lumbar spinal cord, initial encounter Status: Acute (8) Unspecified injury to L1 level of lumbar spinal cord, subsequent encounter: Code(s): S34.101D - Unspecified injury to L1 level of lumbar spinal cord, subsequent encounter Status: Acute (9) T12 vertebral fracture: Code(s): S22.089A - Unspecified fracture of T11-T12 vertebra, initial encounter for closed fracture Status: Acute (10) Chronic ITP (idiopathic thrombocytopenia): Code(s): D69.3 - Immune thrombocytopenic purpura Status: Acute DS: Summary Hospital Course Reason for hospitalization: this pleasant 74-year-old woman with underlying DVT atrial fibrillation Hyten P and slowly progressive dementia was admitted primarily because of T12-L1 and L5-S1 hyper extension injury 3 column and was status post posterior spinal fusion details are available bubble in my H and P The patient was found to have hypothyroidism and was started on the appropriate medication her dementia was evaluated and was started on Namenda her daughter Reagan and was in touch with us periodically and along with the sister the will be giving her care at home she achieved the following goals Hospital Course: glucose was physicians he received the speech therapy physical therapy of compression therapy and gait training and was able to achieve the following independent measures Eating independent, oral hygiene independent, toileting independent, bathing supervision, however the dressing independent, lower body dressing independent, footwear partial assistance, willing in bed independent, sitting to lying partial assistance, lying to sitting supervision, sit to stand independent chair transfers independent 12 transfers set up car transfers partial assistance, walking 10 feet independent walking 50 feet with to turns independent walking 150 feet independent walking 150 10 feet uneven surfaces supervision Armstrong step supervision 4 step supervision, 12 steps harsh patient was unable to pick him about it independent wheelchair 50 feet which 150 feet. Status at Discharge Cognitive/behavioral status at discharge: Patient improved physically however her dementia where she has cord initially mini-mental mental status examination of 12/16 needs to be followed in my office in couple of months which have discussed with her daughter she will have follow-up with the surgeon who performed the posterior spinal fusion on the following Friday post discharge Time Spent with Patient Time attestation: Total time spent providing and/or coordinating discharge services: Exam Const: General: comfortable and no acute distress HENMT: General nose exam: Normal nares present Mouth: Yes dry mucous membranes Eyes: General: appearance normal, both eyes and all related structures Ne
== END 2019-07-28 16:45 | disposition home health service (06) | DRG 560 ==
PROVIDERS: Admitting Provider Psychiatry & Neurology Neurology; PCP Internal Medicine; Visit Provider Psychiatry & Neurology Neurology
DX: Z47.89 Encounter for other orthopedic aftercare (principal); I82.411 Acute embolism and thrombosis of right femoral vein; I82.431 Acute embolism and thrombosis of right popliteal vein; D69.3 Immune thrombocytopenic purpura; Z98.1 Arthrodesis status; S34.105D Unspecified injury to L5 level of lumbar spinal cord, subsequent encounter; S34.101D Unspecified injury to L1 level of lumbar spinal cord, subsequent encounter; S22.089D Unspecified fracture of T11-T12 vertebra, subsequent encounter for fracture with routine healing; S80.01XD Contusion of right knee, subsequent encounter; E83.51 Hypocalcemia; E03.9 Hypothyroidism, unspecified; E78.5 Hyperlipidemia, unspecified; F03.90 Unspecified dementia, unspecified severity, without behavioral disturbance, psychotic disturbance, mood disturbance, and anxiety; E83.42 Hypomagnesemia; I48.91 Unspecified atrial fibrillation; I10 Essential (primary) hypertension; K21.9 Gastro-esophageal reflux disease without esophagitis; M19.90 Unspecified osteoarthritis, unspecified site; M54.16 Radiculopathy, lumbar region; R06.89 Other abnormalities of breathing; Z95.828 Presence of other vascular implants and grafts; Z86.73 Personal history of transient ischemic attack (TIA), and cerebral infarction without residual deficits; Z96.653 Presence of artificial knee joint, bilateral; Z86.718 Personal history of other venous thrombosis and embolism; Z79.01 Long term (current) use of anticoagulants
CPT/HCPCS: 36415; 80048; 82607; 82746; 84443; 85025; 85027; 92507; 93970; 97110; 97116; 97129; 97130; 97162; 97166; 97530; 97535; 97542; A9270; J1650

== ENCOUNTER 2019-10-01 10:47 | Outpatient (CLI) | payer MEDICARE, SELFPAY ==
[2019-10-01 13:41] LABS: Iron 46 ug/dL (37-170)
[2019-10-01 13:51] LABS: Percent Iron Saturation 11 % (20-50)
== END 2019-10-01 10:48 | disposition home or self-care (01) ==
PROVIDERS: PCP Internal Medicine; Visit Provider Internal Medicine Hematology & Oncology
DX: D64.9 Anemia, unspecified (principal)
CPT/HCPCS: 36415; 82607; 82728; 83540; 83550

== ENCOUNTER 2019-12-03 10:02 | Outpatient (CLI) | payer MEDICARE, SELFPAY ==
[2019-12-03 10:27] LABS: Basophils Percent Auto 0.6 % (0.2-1.2); Eosinophils Absolute Auto 0.1 K/mm3 (0-0.3); Eosinophils Percent Auto 1.1 % (0-4.4); Hematocrit 32.9 % (37.0-47.0); Immature Granulocyte Absolute 0.02 K/mm3 (0.00-0.031); Immature Granulocyte Percent A 0.3 % (0-0.5); Lymphocytes Absolute Auto 2.31 K/mm3 (0.9-3.2); Lymphocytes Percent Auto 36.8 % (18.3-44.2); Mean Corpuscular HGB Conc 30.4 g/dl (32-36); Mean Corpuscular Volume 85.5 fl (80-100); Mean Platelet Volume 11.8 fl (7.4-10.4); Monocytes Absolute Auto 0.5 K/mm3 (0.1-0.6); Monocytes Percent Auto 8.1 % (2.6-8.5); Neutrophils Absolute Auto 3.3 K/mm3 (1.3-6.7); Neutrophils Percent Auto 53.1 % (45.5-73.1); Platelet Count Result 208 k/mm3 (150-375); Red Blood Count 3.85 M/mm3 (4.2-5.4); Red Cell Distribution Width 18.4 % (11.5-14.5); White Blood Count 6.3 K/mm3 (4.5-10.0)
[2019-12-03 12:16] LABS: Iron 46 ug/dL (37-170)
[2019-12-03 12:17] LABS: Alanine Aminotransferase 10 U/L (4-35); Albumin Level 3.4 g/dL (3.5-5.1); Alkaline Phosphatase 148 U/L (38-126); Anion Gap 8 mmol/L (8-16); Aspartate Amino Transferase 20 U/L (14-36); Bilirubin,Total 0.7 mg/dL (0.2-1.3); Blood Urea Nitrogen 26 mg/dL (7-17); Calcium 9.2 mg/dL (8.4-10.2); Carbon Dioxide 31 mmol/L (22-30); Chloride 102 mmol/L (98-107); Estimated Glomerular Filt Rate > 60; Glucose 105 mg/dL (65-105); Potassium 4.1 mmol/L (3.4-5.0); Sodium 141 mmol/L (137-145)
[2019-12-03 12:25] LABS: Percent Iron Saturation 12 % (20-50)
== END 2019-12-03 10:03 | disposition home or self-care (01) ==
PROVIDERS: PCP Internal Medicine; Visit Provider Internal Medicine Hematology & Oncology
DX: D64.9 Anemia, unspecified (principal); D69.3 Immune thrombocytopenic purpura
CPT/HCPCS: 36415; 80053; 83540; 83550; 85025

== ENCOUNTER 2020-02-04 11:02 | Outpatient (CLI) | payer MEDICARE, SELFPAY ==
[2020-02-04 11:36] LABS: Basophils Percent Auto 0.5 % (0.2-1.2); Eosinophils Absolute Auto 0.1 K/mm3 (0-0.3); Hematocrit 33.1 % (37.0-47.0); Immature Granulocyte Absolute 0.01 K/mm3 (0.00-0.031); Immature Granulocyte Percent A 0.2 % (0-0.5); Lymphocytes Percent Auto 33.9 % (18.3-44.2); Mean Corpuscular HGB Conc 30.2 g/dl (32-36); Mean Platelet Volume 12.2 fl (7.4-10.4); Monocytes Absolute Auto 0.5 K/mm3 (0.1-0.6); Monocytes Percent Auto 8.5 % (2.6-8.5); Neutrophils Absolute Auto 3.3 K/mm3 (1.3-6.7); Neutrophils Percent Auto 55.9 % (45.5-73.1); Platelet Count Result 152 k/mm3 (150-375); Red Blood Count 3.85 M/mm3 (4.2-5.4); White Blood Count 5.9 K/mm3 (4.5-10.0)
[2020-02-04 11:39] LABS: Blood Urea Nitrogen 27 mg/dL (8-26); Carbon Dioxide 26 mmol/L (22-30); Chloride 105 mmol/L (98-109); Estimated Glomerular Filt Rate 54; Glucose 101 mg/dL (70-105); Potassium 3.6 mmol/L (3.5-4.9); Sodium 141 mmol/L (138-146)
[2020-02-04 12:20] LABS: Iron 81 ug/dL (37-170)
[2020-02-04 12:25] LABS: Alanine Aminotransferase 12 U/L (4-35); Albumin Level 3.2 g/dL (3.5-5.1); Alkaline Phosphatase 153 U/L (38-126); Anion Gap 8 mmol/L (8-16); Aspartate Amino Transferase 24 U/L (14-36); Bilirubin,Total 0.8 mg/dL (0.2-1.3); Blood Urea Nitrogen 30 mg/dL (7-17); Calcium 9.1 mg/dL (8.4-10.2); Carbon Dioxide 27 mmol/L (22-30); Chloride 105 mmol/L (98-107); Estimated Glomerular Filt Rate > 60; Glucose 99 mg/dL (65-105); Potassium 3.7 mmol/L (3.4-5.0); Sodium 140 mmol/L (137-145)
[2020-02-04 12:31] LABS: Percent Iron Saturation 20 % (20-50)
[2020-02-04 12:36] LABS: Cholesterol 175 mg/dL (0-200); HDL Direct 57 mg/dL; Triglycerides 171 mg/dL (<150)
[2020-02-04 12:48] LABS: LDL Cholesterol Direct 91 mg/dL
== END 2020-02-04 11:03 | disposition home or self-care (01) ==
LOC: ANHLAB 11:06
PROVIDERS: PCP Internal Medicine; Visit Provider Internal Medicine Hematology & Oncology
DX: D64.9 Anemia, unspecified (principal); D69.3 Immune thrombocytopenic purpura; I10 Essential (primary) hypertension
CPT/HCPCS: 36415; 80048; 80053; 80061; 83540; 83550; 84443; 85025

== ENCOUNTER 2020-05-05 10:30 | Outpatient (CLI) | payer MEDICARE, SELFPAY ==
[2020-05-05 10:49] LABS: Basophils Percent Auto 0.7 % (0.2-1.2); Eosinophils Absolute Auto 0.1 K/mm3 (0-0.3); Eosinophils Percent Auto 1.4 % (0-4.4); Hemoglobin 9.3 g/dL (12.0-15.0); Immature Granulocyte Absolute 0.01 K/mm3 (0.00-0.031); Immature Granulocyte Percent A 0.2 % (0-0.5); Lymphocytes Percent Auto 33.3 % (18.3-44.2); Mean Corpuscular Volume 86.6 fl (80-100); Mean Platelet Volume 11.7 fl (7.4-10.4); Monocytes Absolute Auto 0.6 K/mm3 (0.1-0.6); Monocytes Percent Auto 9.6 % (2.6-8.5); Neutrophils Absolute Auto 3.1 K/mm3 (1.3-6.7); Neutrophils Percent Auto 54.8 % (45.5-73.1); Platelet Count Result 99 k/mm3 (150-375); Red Blood Count 3.58 M/mm3 (4.2-5.4); Red Cell Distribution Width 16.8 % (11.5-14.5); White Blood Count 5.7 K/mm3 (4.5-10.0)
[2020-05-05 10:53] LABS: Blood Urea Nitrogen 25 mg/dL (8-26); Carbon Dioxide 29 mmol/L (22-30); Chloride 103 mmol/L (98-109); Estimated Glomerular Filt Rate > 60; Glucose 100 mg/dL (70-105); Sodium 140 mmol/L (138-146)
[2020-05-05 13:58] LABS: Alanine Aminotransferase 10 U/L (4-35); Alkaline Phosphatase 129 U/L (38-126); Anion Gap 5 mmol/L (8-16); Aspartate Amino Transferase 21 U/L (14-36); Bilirubin,Total 0.4 mg/dL (0.2-1.3); Blood Urea Nitrogen 27 mg/dL (7-17); Calcium 8.5 mg/dL (8.4-10.2); Carbon Dioxide 28 mmol/L (22-30); Chloride 106 mmol/L (98-107); Estimated Glomerular Filt Rate > 60; Glucose 100 mg/dL (65-105); Potassium 4.1 mmol/L (3.4-5.0); Sodium 139 mmol/L (137-145)
== END 2020-05-05 10:31 | disposition home or self-care (01) ==
LOC: ANHLAB 10:32
PROVIDERS: PCP Internal Medicine; Visit Provider Internal Medicine Hematology & Oncology
DX: D69.3 Immune thrombocytopenic purpura (principal)
CPT/HCPCS: 36415; 80048; 80053; 85025

== ENCOUNTER 2020-08-04 10:34 | Outpatient (CLI) | payer MEDICARE, SELFPAY ==
[2020-08-04 10:55] LABS: Basophils Percent Auto 0.5 % (0.2-1.2); Eosinophils Absolute Auto 0.1 K/mm3 (0-0.3); Eosinophils Percent Auto 1.1 % (0-4.4); Hematocrit 34.7 % (37.0-47.0); Hemoglobin 11.1 g/dL (12.0-15.0); Immature Granulocyte Absolute 0.02 K/mm3 (0.00-0.031); Immature Granulocyte Percent A 0.4 % (0-0.5); Lymphocytes Percent Auto 34.4 % (18.3-44.2); Mean Corpuscular Hemoglobin 30.7 pg (26-34); Mean Corpuscular Volume 96.1 fl (80-100); Mean Platelet Volume 11.9 fl (7.4-10.4); Monocytes Absolute Auto 0.7 K/mm3 (0.1-0.6); Neutrophils Absolute Auto 2.8 K/mm3 (1.3-6.7); Neutrophils Percent Auto 50.6 % (45.5-73.1); Platelet Count Result 179 k/mm3 (150-375); Red Blood Count 3.61 M/mm3 (4.2-5.4); Red Cell Distribution Width 17.2 % (11.5-14.5); White Blood Count 5.5 K/mm3 (4.5-10.0)
[2020-08-04 10:59] LABS: Blood Urea Nitrogen 24 mg/dL (8-26); Carbon Dioxide 29 mmol/L (22-30); Chloride 100 mmol/L (98-109); Estimated Glomerular Filt Rate 54; Glucose 110 mg/dL (70-105); Potassium 3.7 mmol/L (3.5-4.9); Sodium 141 mmol/L (138-146)
[2020-08-04 12:34] LABS: Alanine Aminotransferase 11 U/L (4-35); Albumin Level 2.9 g/dL (3.5-5.1); Alkaline Phosphatase 127 U/L (38-126); Anion Gap 6 mmol/L (8-16); Aspartate Amino Transferase 24 U/L (14-36); Bilirubin,Total 0.8 mg/dL (0.2-1.3); Blood Urea Nitrogen 26 mg/dL (7-17); Calcium 8.8 mg/dL (8.4-10.2); Carbon Dioxide 30 mmol/L (22-30); Chloride 103 mmol/L (98-107); Estimated Glomerular Filt Rate > 60; Glucose 108 mg/dL (65-105); Potassium 3.8 mmol/L (3.4-5.0); Sodium 139 mmol/L (137-145)
== END 2020-08-04 10:35 | disposition home or self-care (01) ==
PROVIDERS: PCP Internal Medicine; Visit Provider Internal Medicine Hematology & Oncology
DX: D69.3 Immune thrombocytopenic purpura (principal)
CPT/HCPCS: 36415; 80048; 80053; 85025

== ENCOUNTER 2020-11-10 09:32 | Outpatient (CLI) | payer MEDICARE, SELFPAY ==
[2020-11-10 09:52] LABS: Basophils Percent Auto 0.7 % (0.2-1.2); Eosinophils Absolute Auto 0.1 K/mm3 (0-0.3); Eosinophils Percent Auto 1.5 % (0-4.4); Hematocrit 39.1 % (37.0-47.0); Hemoglobin 12.4 g/dL (12.0-15.0); Immature Granulocyte Absolute 0.01 K/mm3 (0.00-0.031); Immature Granulocyte Percent A 0.2 % (0-0.5); Lymphocytes Absolute Auto 2.23 K/mm3 (0.9-3.2); Lymphocytes Percent Auto 41.5 % (18.3-44.2); Mean Corpuscular HGB Conc 31.7 g/dl (32-36); Mean Corpuscular Hemoglobin 32.5 pg (26-34); Mean Corpuscular Volume 102.6 fl (80-100); Mean Platelet Volume 11.7 fl (7.4-10.4); Monocytes Absolute Auto 0.6 K/mm3 (0.1-0.6); Monocytes Percent Auto 10.8 % (2.6-8.5); Neutrophils Absolute Auto 2.4 K/mm3 (1.3-6.7); Neutrophils Percent Auto 45.3 % (45.5-73.1); Platelet Count Result 208 k/mm3 (150-375); Red Blood Count 3.81 M/mm3 (4.2-5.4); Red Cell Distribution Width 14.2 % (11.5-14.5); White Blood Count 5.4 K/mm3 (4.5-10.0)
[2020-11-10 09:57] LABS: Blood Urea Nitrogen 25 mg/dL (8-26); Carbon Dioxide 28 mmol/L (22-30); Chloride 101 mmol/L (98-109); Estimated Glomerular Filt Rate > 60; Glucose 99 mg/dL (70-105); Potassium 3.5 mmol/L (3.5-4.9); Sodium 144 mmol/L (138-146)
[2020-11-10 11:26] LABS: Alanine Aminotransferase 16 U/L (4-35); Alkaline Phosphatase 177 U/L (38-126); Anion Gap 10 mmol/L (8-16); Aspartate Amino Transferase 44 U/L (14-36); Bilirubin,Total 0.6 mg/dL (0.2-1.3); Blood Urea Nitrogen 27 mg/dL (7-17); Calcium 9.2 mg/dL (8.4-10.2); Carbon Dioxide 30 mmol/L (22-30); Chloride 103 mmol/L (98-107); Estimated Glomerular Filt Rate > 60; Glucose 100 mg/dL (65-110); Potassium 3.6 mmol/L (3.4-5.0); Sodium 143 mmol/L (137-145)
== END 2020-11-10 09:33 | disposition home or self-care (01) ==
LOC: ANHLAB 09:36
PROVIDERS: PCP Internal Medicine; Visit Provider Internal Medicine Hematology & Oncology
DX: D69.3 Immune thrombocytopenic purpura (principal)
CPT/HCPCS: 36415; 80048; 80053; 85025

== ENCOUNTER → 2021-01-19 08:32 | Outpatient (CLI) | payer MEDICARE, SELFPAY ==
--- NOTE | ~2021-01-19 | CT_ITS ---
EXAMINATION: CT lumbar spine wo con EXAM DATE: 01/19/2021 09:12 INDICATION: Radiculopathy, lumbosacral region, Pain in thoracic spine. TECHNIQUE: Spiral CT of the lumbar spine was performed without contrast. Axial, coronal and sagittal images lumbar spine were reviewed. The dose-length product (DLP) for this examination was 1142.99 m Gy-cm. The exposure was tailored according to patient size (auto mA exposure control), and iterativ e reconstruction (ASIR) was used as additional dose reduction technique. Correlation is made to veronica kamilla spine 02/24/2019. FINDINGS: 11 rib-bearing thoracic vertebral bodies, 5 nonrib-bearing lumbar vertebral bodies. Thoraco lumbar fusion hardware from T9 through the sacrum. The pedicular screws are well seated without lucen cy. The right L4 screw has been removed with a screw track present. There is posterior bone graft. Ar tifact from this fusion hardware. Right renal lesion probably cyst measuring about 2.5 cm. Sacroiliac joints intact. Thoracolumbar diffuse idiopathic skeletal hyperostosis. At least some amount of the osteophytes and/o r disc spaces are fused throughout the lumbar spine. The vertebral bodies are aligned in the AP dimen riley. Axial images limited from metallic artifact. T11-L1: There is a mild diffuse disc bulge. Facet arthropathy: Moderate right, mild left. Neural foraminal stenosis: Moderate right, mild left. Central canal stenosis: Mild. L1-L2: Disc does not extend beyond the endplate margin. Facet arthropathy: Mild to moderate. Neural foraminal stenosis: Mild bilateral. Central canal stenosis: Mild. L2-L3: There is a mild to moderate diffuse disc bulge. Facet arthropathy: Moderate. Neural foraminal stenosis: Mild to moderate left, mild right. Central canal stenosis: Mild to moderate . L3-L4: This level is fused. Facet arthropathy: Moderate. Neural foraminal stenosis: Moderate bilateral. Central canal stenosis: Mild to moderate. L4-L5: Partially fused Facet arthropathy: Moderate to severe. Neural foraminal stenosis: Moderate right, mild to moderate left. Central canal stenosis: Moderate, particularly right lateral recess. L5-S1: There is a moderate diffuse disc bulge. Facet arthropathy: Severe right, moderate left. Neural foraminal stenosis: Moderate to severe right, moderate left. Central canal stenosis: Mild to moderate. IMPRESSION: 1. 11 thoracic rib-bearing vertebral bodies. 2. Intact posterior fusion hardware. 3. Spondylosis as above. 4. No acute findings. Reviewed, dictated and finalized at location B. 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
--- NOTE | ~2021-01-19 | CT_ITS ---
EXAMINATION: CT thoracic spine wo con EXAM DATE: 01/19/2021 09:11 INDICATION: Radiculopathy, lumbosacral region, Pain in thoracic spine. TECHNIQUE: Spiral CT thoracic spine was performed without contrast. Axial, coronal and sagittal im ages were reviewed. The dose-length product (DLP) for this examination was 886.24 mGy-cm. The expos ure was tailored according to patient size (auto mA exposure control), and iterative reconstruction ( ASIR) was used as additional dose reduction technique. Correlation is made to lumbar CT obtained at t he same time. FINDINGS: There appear to be only 11 rib-bearing thoracic vertebral bodies, 5 nonrib-bearing lumbar vertebral bodies. Posterior fusion hardware with vertical rods and pedicular screws from T9 through t he sacrum. There is thoracic diffuse idiopathic skeletal hyperostosis. There are no acute fractures i dentified. No lucency at the pedicular screws. There is moderate right neural foraminal stenosis at T 1-2. Otherwise, no evidence of significant thoracic central canal or neural foraminal stenosis. Ganesh lisseth soft tissue is unremarkable. IMPRESSION: 1. 11 rib bearing thoracic vertebral bodies. 2. Thoracolumbar diffuse idiopathic skeletal hyperostosis. 3. T1-2 moderate right neural foraminal stenosis. Less stenosis other levels. 4. Intact thoracolumbar fusion hardware. Reviewed, dictated and finalized at location B. 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
== END ==
PROVIDERS: PCP Internal Medicine; Visit Provider Nurse Practitioner Family
DX: M48.15 Ankylosing hyperostosis [Forestier], thoracolumbar region (principal); M48.04 Spinal stenosis, thoracic region; M47.815 Spondylosis without myelopathy or radiculopathy, thoracolumbar region; M48.05 Spinal stenosis, thoracolumbar region; M47.817 Spondylosis without myelopathy or radiculopathy, lumbosacral region; M48.07 Spinal stenosis, lumbosacral region
CPT/HCPCS: 72128; 72131

== ENCOUNTER 2021-03-09 09:21 | Outpatient (CLI) | payer MEDICARE, SELFPAY ==
[2021-03-09 09:42] LABS: Basophils Absolute Auto 0.1 K/mm3 (0.0-0.1); Basophils Percent Auto 1.1 % (0.2-1.2); Eosinophils Absolute Auto 0.1 K/mm3 (0-0.3); Eosinophils Percent Auto 1.4 % (0-4.4); Hematocrit 41.9 % (37.0-47.0); Hemoglobin 13.3 g/dL (12.0-15.0); Immature Granulocyte Absolute 0.01 K/mm3 (0.00-0.031); Immature Granulocyte Percent A 0.2 % (0-0.5); Lymphocytes Absolute Auto 1.91 K/mm3 (0.9-3.2); Lymphocytes Percent Auto 34.4 % (18.3-44.2); Mean Corpuscular HGB Conc 31.7 g/dl (32-36); Mean Corpuscular Hemoglobin 33.3 pg (26-34); Mean Corpuscular Volume 104.8 fl (80-100); Mean Platelet Volume 11.9 fl (7.4-10.4); Monocytes Absolute Auto 0.6 K/mm3 (0.1-0.6); Monocytes Percent Auto 9.9 % (2.6-8.5); Neutrophils Absolute Auto 2.9 K/mm3 (1.3-6.7); Platelet Count Result 107 k/mm3 (150-375); Red Cell Distribution Width 13.2 % (11.5-14.5); White Blood Count 5.6 K/mm3 (4.5-10.0)
[2021-03-09 09:47] LABS: Blood Urea Nitrogen 29 mg/dL (8-26); Carbon Dioxide 31 mmol/L (22-30); Chloride 100 mmol/L (98-109); Estimated Glomerular Filt Rate > 60; Glucose 97 mg/dL (70-105); Sodium 142 mmol/L (138-146)
[2021-03-09 10:10] LABS: Alanine Aminotransferase 14 U/L (4-35); Albumin Level 4.1 g/dL (3.5-5.1); Alkaline Phosphatase 166 U/L (38-126); Anion Gap 17 mmol/L (8-16); Aspartate Amino Transferase 39 U/L (14-36); Bilirubin,Total 0.7 mg/dL (0.2-1.3); Blood Urea Nitrogen 30 mg/dL (7-17); Calcium 9.3 mg/dL (8.4-10.2); Carbon Dioxide 31 mmol/L (22-30); Chloride 100 mmol/L (98-107); Estimated Glomerular Filt Rate > 60; Glucose 104 mg/dL (65-110); Potassium 4.1 mmol/L (3.4-5.0); Sodium 148 mmol/L (137-145)
== END 2021-03-09 09:22 | disposition home or self-care (01) ==
LOC: ANHLAB 09:24
PROVIDERS: PCP Internal Medicine; Visit Provider Internal Medicine Hematology & Oncology
DX: D69.3 Immune thrombocytopenic purpura (principal)
CPT/HCPCS: 36415; 80053; 85025

== ENCOUNTER → 2021-04-14 08:35 | Outpatient (CLI) | payer MEDICARE, SELFPAY ==
--- NOTE | ~2021-04-14 | MR_ITS ---
EXAMINATION: MR lumbar spine wo con EXAM DATE: 04/14/2021 10:21 INDICATION: Low back pain. Bilateral leg pain and weakness. Thoracolumbar fusion. TECHNIQUE: Multi-sequential, multiplanar MR images of the lumbar spine were obtained without contrast . Sagittal T1, T2, T2 fat saturation images. Axial T2 weighted images. Comparison is made to prior examination from 02/24/2019. FINDINGS: There has been interval placement of thoracolumbar Sahu rods with pedicular screws. T here is osseous fusion of the L2-L5 vertebral bodies. Partial osseous fusion of the L1-2 vertebral ravi dies. Moderate loss of the L5-S1 disc height. No evidence of acute lumbar process. No bone marrow loida ma. The vertebral bodies are aligned in the AP dimension. Artifact limiting evaluation of conus medul domenico but no suspicion of abnormality. Mild to moderate mid and lower lumbar neural foraminal stenosi s. Mild to moderate L4-5 right neural foraminal stenosis due to disc bulge. Mild central canal stenos is overall at L4-5 and L5-S1. Mild thoracolumbar dextroscoliosis. IMPRESSION: 1. Thoracolumbar Sahu rods, spondylosis as detailed above. 2. Mild to moderate mid and lower lumbar facet arthropathy. Reviewed, dictated and finalized at location A. 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
--- NOTE | ~2021-04-14 | MR_ITS ---
EXAMINATION: MR thoracic spine wo con EXAM DATE: 04/14/2021 09:57 INDICATION: Pain in leg since falling June 2018. Hardware. Spine stimulator planning. TECHNIQUE: Multi-sequential, multiplanar MR images of the thoracic spine were obtained without contra st. Sagittal T1, T2, T2 fat saturation, axial T2 weighted images reviewed. There is no prior study for comparison. FINDINGS: Limitations from thoracolumbar Sahu rods, artifact. The vertebral bodies are aligned in the AP dimension. Vertebral body and disc heights are well-maintained. There is mild thoracic fa cet arthropathy. Mild to moderate bridging endplate osteophytes at the mid and lower thoracic spine. The spinal cord signal intensity and intrinsic morphology is normal. Paraspinal soft tissue is unrema rkable. IMPRESSION: No acute thoracic findings or evidence of stenosis. Reviewed, dictated and finalized at location A. 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
== END ==
DX: M54.50 Low back pain, unspecified (principal); M47.816 Spondylosis without myelopathy or radiculopathy, lumbar region; Z96.9 Presence of functional implant, unspecified; M12.88 Other specific arthropathies, not elsewhere classified, other specified site
CPT/HCPCS: 72146; 72148

== ENCOUNTER 2021-05-11 09:07 | Outpatient (CLI) | payer MEDICARE, SELFPAY ==
[2021-05-11 09:47] LABS: Basophils Absolute Auto 0.1 K/mm3 (0.0-0.1); Basophils Percent Auto 0.8 % (0.2-1.2); Eosinophils Absolute Auto 0.1 K/mm3 (0-0.3); Eosinophils Percent Auto 1.1 % (0-4.4); Hematocrit 43.2 % (37.0-47.0); Hemoglobin 13.5 g/dL (12.0-15.0); Immature Granulocyte Absolute 0.01 K/mm3 (0.00-0.031); Immature Granulocyte Percent A 0.2 % (0-0.5); Immature Platelet Fraction Pct 14.7 % (0.9-11.2); Lymphocytes Absolute Auto 2.28 K/mm3 (0.9-3.2); Lymphocytes Percent Auto 35.9 % (18.3-44.2); Mean Corpuscular HGB Conc 31.3 g/dl (32-36); Mean Corpuscular Volume 105.6 fl (80-100); Mean Platelet Volume 12.9 fl (7.4-10.4); Monocytes Absolute Auto 0.6 K/mm3 (0.1-0.6); Monocytes Percent Auto 9.1 % (2.6-8.5); Neutrophils Absolute Auto 3.4 K/mm3 (1.3-6.7); Neutrophils Percent Auto 52.9 % (45.5-73.1); Platelet Count Result 76 k/mm3 (150-375); Red Blood Count 4.09 M/mm3 (4.2-5.4); Red Cell Distribution Width 13.2 % (11.5-14.5); White Blood Count 6.4 K/mm3 (4.5-10.0)
== END 2021-05-11 09:08 | disposition home or self-care (01) ==
PROVIDERS: Visit Provider Internal Medicine Hematology & Oncology
DX: D69.3 Immune thrombocytopenic purpura (principal)
CPT/HCPCS: 36415; 85025; 85055

== ENCOUNTER 2021-07-17 08:45 | Outpatient (CLI) | payer MEDICARE, SELFPAY ==
[2021-07-17 09:17] LABS: Basophils Percent Auto 0.5 % (0.2-1.2); Eosinophils Absolute Auto 0.1 K/mm3 (0-0.3); Eosinophils Percent Auto 0.9 % (0-4.4); Hematocrit 39.3 % (37.0-47.0); Hemoglobin 12.9 g/dL (12.0-15.0); Immature Granulocyte Absolute 0.01 K/mm3 (0.00-0.031); Immature Granulocyte Percent A 0.2 % (0-0.5); Lymphocytes Absolute Auto 2.43 K/mm3 (0.9-3.2); Lymphocytes Percent Auto 44.1 % (18.3-44.2); Mean Corpuscular HGB Conc 32.8 g/dl (32-36); Mean Corpuscular Hemoglobin 33.5 pg (26-34); Mean Corpuscular Volume 102.1 fl (80-100); Mean Platelet Volume 11.8 fl (7.4-10.4); Monocytes Absolute Auto 0.6 K/mm3 (0.1-0.6); Monocytes Percent Auto 10.2 % (2.6-8.5); Neutrophils Absolute Auto 2.4 K/mm3 (1.3-6.7); Neutrophils Percent Auto 44.1 % (45.5-73.1); Platelet Count Result 40 k/mm3 (150-375); Red Blood Count 3.85 M/mm3 (4.2-5.4); Red Cell Distribution Width 13.2 % (11.5-14.5); White Blood Count 5.5 K/mm3 (4.5-10.0)
== END 2021-07-17 08:46 | disposition home or self-care (01) ==
LOC: ANHLAB 08:49
PROVIDERS: Visit Provider Internal Medicine Hematology & Oncology
DX: D69.3 Immune thrombocytopenic purpura (principal)
CPT/HCPCS: 36415; 85025

== ENCOUNTER 2021-09-14 10:24 | Outpatient (CLI) | payer MEDICARE, SELFPAY ==
[2021-09-14 10:47] LABS: Blood Urea Nitrogen 23 mg/dL (8-26); Carbon Dioxide 29 mmol/L (22-30); Chloride 100 mmol/L (98-109); Estimated Glomerular Filt Rate > 60; Glucose 129 mg/dL (70-105); Ionized Calcium (POC) 1.17 mmol/L (1.11-1.31); Potassium 3.8 mmol/L (3.5-4.9); Sodium 141 mmol/L (138-146)
[2021-09-14 10:51] LABS: Hematocrit 40.3 % (37.0-47.0); Hemoglobin 13.1 g/dL (12.0-15.0); Immature Platelet Fraction Pct 13.4 % (0.9-11.2); Mean Corpuscular HGB Conc 32.5 g/dl (32-36); Mean Corpuscular Hemoglobin 33.2 pg (26-34); Mean Platelet Volume 12.9 fl (7.4-10.4); Platelet Count Result 27 k/mm3 (150-375); Red Blood Count 3.95 M/mm3 (4.2-5.4); Red Cell Distribution Width 12.6 % (11.5-14.5); White Blood Count 5.1 K/mm3 (4.5-10.0)
[2021-09-14 12:28] LABS: Alanine Aminotransferase 13 U/L (6-35); Albumin Level 3.7 g/dL (3.5-5.1); Alkaline Phosphatase 146 U/L (38-126); Anion Gap 10 mmol/L (8-16); Aspartate Amino Transferase 24 U/L (14-36); Bilirubin,Total 0.7 mg/dL (0.2-1.3); Blood Urea Nitrogen 25 mg/dL (7-17); Calcium 9.1 mg/dL (8.4-10.2); Carbon Dioxide 32 mmol/L (22-30); Chloride 99 mmol/L (98-107); Estimated Glomerular Filt Rate > 60; Glucose 127 mg/dL (65-110); Potassium 3.9 mmol/L (3.4-5.0); Sodium 141 mmol/L (137-145)
== END 2021-09-14 10:25 | disposition home or self-care (01) ==
LOC: ANHLAB 10:26
PROVIDERS: Visit Provider Internal Medicine Hematology & Oncology
DX: D69.3 Immune thrombocytopenic purpura (principal)
CPT/HCPCS: 36415; 80047; 80053; 85027; 85055

== ENCOUNTER 2021-11-16 11:19 | Outpatient (CLI) | payer MEDICARE, SELFPAY ==
[2021-11-16 11:40] LABS: Basophils Percent Auto 0.4 % (0.2-1.2); Eosinophils Percent Auto 0.6 % (0-4.4); Hematocrit 39.8 % (37.0-47.0); Hemoglobin 12.8 g/dL (12.0-15.0); Immature Granulocyte Absolute 0.02 K/mm3 (0.00-0.031); Immature Granulocyte Percent A 0.3 % (0-0.5); Lymphocytes Absolute Auto 1.87 K/mm3 (0.9-3.2); Lymphocytes Percent Auto 27.7 % (18.3-44.2); Mean Corpuscular HGB Conc 32.2 g/dl (32-36); Mean Corpuscular Hemoglobin 33.2 pg (26-34); Mean Corpuscular Volume 103.1 fl (80-100); Mean Platelet Volume 11.6 fl (7.4-10.4); Monocytes Absolute Auto 0.7 K/mm3 (0.1-0.6); Monocytes Percent Auto 10.2 % (2.6-8.5); Neutrophils Absolute Auto 4.1 K/mm3 (1.3-6.7); Neutrophils Percent Auto 60.8 % (45.5-73.1); Platelet Count Result 205 k/mm3 (150-375); Red Blood Count 3.86 M/mm3 (4.2-5.4); Red Cell Distribution Width 13.3 % (11.5-14.5); White Blood Count 6.7 K/mm3 (4.5-10.0)
[2021-11-16 11:48] LABS: Blood Urea Nitrogen 25 mg/dL (8-26); Carbon Dioxide 29 mmol/L (22-30); Chloride 99 mmol/L (98-109); Estimated Glomerular Filt Rate > 60; Glucose 106 mg/dL (70-105); Ionized Calcium (POC) 1.14 mmol/L (1.11-1.31); Potassium 3.7 mmol/L (3.5-4.9); Sodium 142 mmol/L (138-146)
[2021-11-16 14:47] LABS: Alanine Aminotransferase 16 U/L (6-35); Albumin Level 3.7 g/dL (3.5-5.1); Alkaline Phosphatase 172 U/L (38-126); Anion Gap 10 mmol/L (8-16); Aspartate Amino Transferase 26 U/L (14-36); Blood Urea Nitrogen 27 mg/dL (7-17); Calcium 8.8 mg/dL (8.4-10.2); Carbon Dioxide 30 mmol/L (22-30); Chloride 99 mmol/L (98-107); Estimated Glomerular Filt Rate > 60; Glucose 103 mg/dL (65-110); Potassium 3.7 mmol/L (3.4-5.0); Sodium 139 mmol/L (137-145)
== END 2021-11-16 11:20 | disposition home or self-care (01) ==
LOC: ANHLAB 11:22
PROVIDERS: Visit Provider Internal Medicine Hematology & Oncology
DX: D69.3 Immune thrombocytopenic purpura (principal)
CPT/HCPCS: 36415; 80047; 80053; 85025

== ENCOUNTER 2022-04-24 09:27 | Outpatient (CLI) | payer MEDICARE, SELFPAY ==
[2022-04-24 09:46] LABS: Hematocrit 39.2 % (37.0-47.0); Hemoglobin 12.8 g/dL (12.0-15.0); Mean Corpuscular HGB Conc 32.7 g/dl (32-36); Mean Corpuscular Hemoglobin 33.3 pg (26-34); Mean Corpuscular Volume 102.1 fl (80-100); Mean Platelet Volume 11.6 fl (7.4-10.4); Platelet Count Result 159 k/mm3 (150-375); Red Blood Count 3.84 M/mm3 (4.2-5.4); Red Cell Distribution Width 13.8 % (11.5-14.5); White Blood Count 6.6 K/mm3 (4.5-10.0)
[2022-04-24 09:50] LABS: Blood Urea Nitrogen 29 mg/dL (8-26); Carbon Dioxide 35 mmol/L (22-30); Chloride 100 mmol/L (98-109); Estimated Glomerular Filt Rate > 60; Glucose 106 mg/dL (70-105); Ionized Calcium (POC) 1.15 mmol/L (1.11-1.31); Potassium 3.7 mmol/L (3.5-4.9); Sodium 140 mmol/L (138-146)
[2022-04-24 13:35] LABS: Alanine Aminotransferase 19 U/L (6-35); Albumin Level 3.8 g/dL (3.5-5.1); Alkaline Phosphatase 170 U/L (38-126); Anion Gap 7 mmol/L (8-16); Aspartate Amino Transferase 29 U/L (14-36); Bilirubin,Total 0.8 mg/dL (0.2-1.3); Blood Urea Nitrogen 30 mg/dL (7-17); Calcium 8.9 mg/dL (8.4-10.2); Carbon Dioxide 32 mmol/L (22-30); Chloride 101 mmol/L (98-107); Estimated Glomerular Filt Rate > 60; Glucose 101 mg/dL (65-110); Potassium 3.8 mmol/L (3.4-5.0); Sodium 140 mmol/L (137-145)
== END 2022-04-24 09:28 | disposition home or self-care (01) ==
PROVIDERS: PCP Family Medicine; Visit Provider Internal Medicine Hematology & Oncology
DX: D69.3 Immune thrombocytopenic purpura (principal)
CPT/HCPCS: 36415; 80047; 80053; 85027

== ENCOUNTER 2022-11-06 19:05 | Inpatient (IN) | payer MEDICARE, SELFPAY ==
--- NOTE | ~2022-11-06 | XR_ITS ---
AP view of the pelvis Clinical history: Pain Findings: No acute fracture or dislocation is seen. There is severe osteoarthritis of the bilateral h ip joints, with bilateral joint space narrowing, mild remodeling of the femoral heads, reactive scler osis, and probable subchondral cystic change. Lumbosacral spinal fixation hardware is seen at the vis ualized lower lumbar spine extending through the sacrum and SI joints. Soft tissues are unremarkable. Impression: No acute fracture or dislocation. Severe osteoarthritis of the bilateral hip joints, as detailed above. Lumbosacral spinal fixation hardware, partially imaged. Reviewed, dictated and finalized at location M. Impression: No acute fracture or dislocation. Severe osteoarthritis of the bilateral hip joints, as detailed above. Lumbosacral spinal fixation hardware, partially imaged.
--- NOTE | ~2022-11-06 | XR_ITS ---
AP and lateral views of the right hip Clinical history: Pain Findings: No acute fracture or dislocation is seen. There is severe osteoarthritis of the right hip j oint. There is joint space narrowing, remodeling of the femoral head and acetabulum, and reactive scl erotic change. Soft tissues are unremarkable. Impression: Severe osteoarthritis of the right hip joint. No acute fracture or dislocation. Reviewed, dictated and finalized at location M. Impression: Severe osteoarthritis of the right hip joint. No acute fracture or dislocation.
--- NOTE | ~2022-11-06 | US_ITS ---
EXAMINATION: US venous doppler [facility] DATE: 11/07/2022 15:19 INDICATION: Diffuse lower limb swelling TECHNIQUE: Stephen scale images without and with compression and Doppler images of the bilateral lower e xtremity veins were obtained. COMPARISON: 07/26/2019 FINDINGS: The right common femoral vein, profunda femoral vein, femoral vein, popliteal vein, posterior tibial veins, and greater saphenous vein are patent. The peroneal veins are not well evaluated. The left common femoral vein, profunda femoral vein, femoral vein, popliteal vein, posterior tibial v eins, and greater saphenous vein are patent. The peroneal veins are not well evaluated. IMPRESSION: 1. Patent bilateral lower extremity veins. No evidence of deep venous thrombosis. Peroneal veins not well evaluated due to skin thickening. Reviewed, dictated and finalized at location L. IMPRESSION: 1. Patent bilateral lower extremity veins. No evidence of deep venous thrombosi s. Peroneal veins not well evaluated due to skin thickening.
--- NOTE | ~2022-11-06 | XR_ITS ---
XR chest 1V portable DATE: 11/06/2022 22:47 INDICATION: Weakness TECHNIQUE: Portable supine AP chest on 11/06/2022 at 2241 hours COMPARISON: 12/02/2018 PA and lateral chest FINDINGS: Borderline heart size. Aortic calcification. No hilar or mediastinal enlargement. No pulmonary infiltrate or consolidation, pleural effusion or pulmonary vascular congestion or pneumo thorax is detected. Dextroscoliosis and diffuse idiopathic skeletal hyperostosis of the thoracic spine. Thoracic pedicle screws and rods are noted, beginning at T9 and continuing into the lumbar area. Bilateral glenohumeral osteoarthritis and bilateral rotator cuff atrophy. Osteopenia. IMPRESSION: No active pulmonary disease Reviewed, dictated and finalized at location A. IMPRESSION: No active pulmonary disease
[2022-11-06 19:06] VITALS: BP 129/77; PULSE 73; RESP 16; O2SAT 100
--- NOTE | 2022-11-06 19:30 | PC.NURSE ---
Pt placed on pure wick due to urinary incontinence and decubitus wounds on buttocks.
--- NOTE | 2022-11-06 19:35 | PC.NURSE ---
Pt has covered wounds to buttocks that are pre-existing from home.
[2022-11-06 20:00] VITALS: BP 127/54; PULSE 75; RESP 15; O2SAT 100
[2022-11-06 21:00] VITALS: BP 119/55; PULSE 75; RESP 16; O2SAT 100
[2022-11-06 22:00] VITALS: BP 116/50; PULSE 74; RESP 14; O2SAT 99
--- NOTE | 2022-11-06 22:00 | ECG_ITS ---
Measurements Intervals Bayard Rate: 70 P: 60 NE: 160 QRS: 10 QRSD: 105 T: 37 QT: 413 QTc: 447 Interpretive Statements SINUS RHYTHM NORMAL ECG COMPARED TO ECG 12/02/2018 11:43:02 SINUS RHYTHM NOW PRESENT Electronically Signed On 11-07-2022 6:37:25 CDT by Arjun Lee D.O.
[2022-11-06 22:22] LABS: Appearance Urine Clear (Clear); Bacteria Urine 4+ /hpf; Bilirubin Urine Negative (Negative); Blood Urine Trace (Negative); Color Urine Yellow (Yellow); Glucose Urine UA Negative (Negative); Ketones Urine Negative (Negative); Leukocyte Esterase Ur 1+ LEU/UL (Negative); Nitrate Urine Positive (Negative); Non Pathogenic Casts 0-2; Protein Urine Negative (Negative); RBC Urine 0-2 /hpf (0-2); Specific Grav Ur 1.006 (1.001-1.035); Squamous Epithelial Cell Urine None seen /hpf (Few); Urobilinogen Urine 0.2 mg/dL (<2.0); pH Urine 7.5 (5.0-9.0)
[2022-11-06 22:23] LABS: Basophils Percent Auto 0.4 % (0.2-1.2); Eosinophils Absolute Auto 0.1 K/mm3 (0-0.3); Eosinophils Percent Auto 1.6 % (0-4.4); Hematocrit 38.5 % (37.0-47.0); Hemoglobin 12.6 g/dL (12.0-15.0); Immature Granulocyte Absolute 0.01 K/mm3 (0.00-0.031); Immature Granulocyte Percent A 0.1 % (0-0.5); Lymphocytes Absolute Auto 2.76 K/mm3 (0.9-3.2); Lymphocytes Percent Auto 40.9 % (18.3-44.2); Mean Corpuscular HGB Conc 32.7 g/dl (32-36); Mean Corpuscular Hemoglobin 33.9 pg (26-34); Mean Corpuscular Volume 103.5 fl (80-100); Mean Platelet Volume 12.8 fl (7.4-10.4); Monocytes Absolute Auto 0.9 K/mm3 (0.1-0.6); Monocytes Percent Auto 13.5 % (2.6-8.5); Neutrophils Absolute Auto 2.9 K/mm3 (1.3-6.7); Neutrophils Percent Auto 43.5 % (45.5-73.1); Platelet Count Result 123 k/mm3 (150-375); Red Blood Count 3.72 M/mm3 (4.2-5.4); Red Cell Distribution Width 13.6 % (11.5-14.5); White Blood Count 6.8 K/mm3 (4.5-10.0)
[2022-11-06 22:27] LABS: Add Urine Microscopic? YES
[2022-11-06 22:30] LABS: Alanine Aminotransferase 24 U/L (6-35); Albumin Level 3.7 g/dL (3.5-5.1); Alkaline Phosphatase 189 U/L (38-126); Anion Gap 3 mmol/L (8-16); Aspartate Amino Transferase 49 U/L (14-36); Bilirubin,Total 0.7 mg/dL (0.2-1.3); Blood Urea Nitrogen 37 mg/dL (7-17); Calcium 8.7 mg/dL (8.4-10.2); Carbon Dioxide 35 mmol/L (22-30); Chloride 99 mmol/L (98-107); Estimated CRCL calculation 51 ml/min; Estimated Glomerular Filt Rate > 60; Glucose 102 mg/dL (65-110); Potassium 4.2 mmol/L (3.4-5.0); Sodium 137 mmol/L (137-145)
[2022-11-06 23:10] VITALS: PULSE 83
--- NOTE | 2022-11-06 23:34 | ED.GENADULT ---
HPI - General Adult General Chief complaint: Weakness Stated complaint: WEAKNESS, BLE EDEMA, DECUBITUS ULCERS Time Seen by Provider: 11/06/22 22:33 Source: patient and family (daughters) Limitations: no limitations History of Present Illness HPI narrative: Patient is a 77-year-old female present to the emergency department accompanied by her daughters for generalized weakness for the past few days. Daughter lives with the patient and provides most of her care and states that the patient has had a decline in her ability to perform her actives of daily living. Patient typically ambulates with a walker and has not been able to get up or move around much. Patient has chronic bilateral lower extremity swelling which they have been told is due to dependent edema and she has been elevating her legs in addition to wearing compression stockings in addition patient has a history of multiple blood clots in her legs for which she is on Eliquis has been taking this at prescribed. Family and patient deny any new or changed medications. Patient denies any recent injuries. Patient denies fever, vomiting, diarrhea, constipation, dysuria, abdominal pain, chest pain, shortness of breath, focal weakness, headache, vision changes. Patient admits to frequent urination. Related Data Home Medications Medication Instructions Recorded Confirmed eltrombopag 50 mg tablet 50 mg PO DAILY 07/15/19 11/07/22 acetaminophen 500 mg capsule 1,000 mg PO TID 11/26/21 11/07/22 apixaban 5 mg tablet (Eliquis) 5 mg PO BID 11/26/21 11/07/22 doxycycline hyclate 100 mg capsule 100 mg PO BID 11/26/21 11/07/22 gabapentin 600 mg tablet 600 mg PO TID 11/26/21 11/07/22 bumetanide 2 mg tablet 2 mg PO DAILY 11/07/22 11/07/22 ferrous sulfate 325 mg (65 mg See Rx Instructions .Route .COMPLEX 11/07/22 11/07/22 iron) tablet Allergies Allergy/AdvReac Type Severity Reaction Status Date / Time Influenza Virus Vaccines Allergy Hives Verified 11/07/22 08:18 pneumococcal vaccine Allergy Hives Verified 11/07/22 08:18 Review of Systems Review of Systems: A 10 system review of systems was completed on the patient and is negative except for what is stated in the HPI. Nursing and ancillary documentation was reviewed. [facility] Past Medical History Medical History Atrial fibrillation Dementia DVT (deep venous thrombosis) Surgical History Surgical History History of back surgery Family History Family History Father Cerebrovascular accident Sibling Lung cancer Cerebrovascular accident Sibling CAD (coronary artery disease) BROTHER Mother Parkinson disease Sibling Myocardial infarct BROTHER Sibling Diabetes mellitus BROTHER Daughter Diabetes mellitus Social History Social History (Updated 07/22/22 @ 11:18 by Mary Brownlee MA) Smoking status: Never smoker Second hand tobacco smoke exposure: No Alcohol intake: never Substance use: never Substance use type: does not use Lack of Transportation: No Lack of Food: Never True Current Housing: I Have Housing Concerned About Future Housing: No Difficulty Paying Gas/Electric Bills: No Difficulty Paying for Meds: No Currently Unemployed: No Education: High School Diploma/GED Difficulty w/ Childcare or Family Care: No Gender identity (if verbalized by the patient): Female Spiritual care concerns: No Comments At time of signature, I have reviewed and agree with nursing past medical, surgical, social and family history unless otherwise noted. Please see the nursing chart for further information. There is no relevant family history pertinent to the presenting complaint. Exam Const: General: no acute distress; No ill appearing Orientation/consciousness: patient oriented x3 Limitations: no limitations HE
[2022-11-07] VITALS (38 sets, daily range): BP systolic 93–134; BP diastolic 35–87; PULSE 73–113; RESP 12–31; TEMP 36.4–36.7; O2SAT 94–100; BMI 11.0
--- NOTE | 2022-11-07 00:40 | PC.NURSE ---
No blood cultures needed per Dr Jimenez
[2022-11-07] MEDS: cefTRIAXone 2 GM/NS 100 ML 2 GM/100 ML BAG IVPB ×2 (00:55→21:30)
[2022-11-07 01:04] LABS: INR 1.3; Prothrombin Time 16.5 Seconds (11.1-14.7)
[2022-11-07 01:05] LABS: Partial Thromboplastin Time 33.9 SECONDS (22.3-36.8)
[2022-11-07 01:19] LABS: CRP 0.5 mg/dL (<1.0); Creatine Kinase 23 U/L (30-135)
[2022-11-07 01:28] LABS: NT Pro B Type Natriuretic Pept 577 pg/mL (19.9-100); Troponin I < 0.012 ng/mL (0.000-0.034)
[2022-11-07 01:37] LABS: Troponin I < 0.012 ng/mL (0.000-0.034)
--- NOTE | 2022-11-07 05:09 | PC.NURSE ---
Purewick not suctioning correctly. Pt and linens wet. Pt and linens changed. Pt's heels propped off bed for comfort.
[2022-11-07] MEDS: ACETAMINOPHEN 325 MG TABLET 650 MG PO (06:15)
--- NOTE | 2022-11-07 06:15 | PC.NURSE ---
Pt c/o increased pain in bilateral legs. Attempted to improve with reposition without success. VO from Dr Jimenez for Tylenol.
[2022-11-07] MEDS: LACTATED RINGERS 1,000 ML 125 ML IV CONT (06:16)
--- NOTE | 2022-11-07 08:51 | ADMGEN ---
This patient, Ricarda Stephen, was admitted to [facility] Surg Room 317-01. Patient/family oriented to hospital policies and general routines including ID bracelet, bed and alarms, visiting hours, pain management, procedures, bathroom and other care routines, personal items, smoking policy, room service/diet, and visiting hours. Information on how to activate the Rapid Response Team has been discussed. Patient/Family are encouraged to report perceived risks to care and to ask questions if they do not understand what they are told or what they should do.
--- NOTE | 2022-11-07 12:16 | PM.IMHP ---
H&P: HPI History of Present Illness Date/Time: 11/07/22 12:16 Chief Complaint: Weakness leg swelling confusion Narrative: This is a 77-year-old female who was admitted to the hospital with findings of urinary tract infection. Patient has been experiencing increased generalized weakness for the past few days and lower extremity swelling. Prior blood clots in her legs is on Eliquis at home. Patient expresses that she still lives at home the parents. The next question I asked was how old her parents for and she stated they were . Patient forgot she was in the hospital. She lives with her daughter at home to take care of her I and noted be declining in a activity could be having that has been gradual but worse over the last week. Review of Systems Review of Systems: ROS unobtainable: Yes unobtainable due to mental status ( Appears to be chronic dementia) [facility] Past Medical History Medical History Atrial fibrillation Dementia DVT (deep venous thrombosis) Surgical History Surgical History History of back surgery Family History Family History Father Cerebrovascular accident Sibling Lung cancer Cerebrovascular accident Sibling CAD (coronary artery disease) BROTHER Mother Parkinson disease Sibling Myocardial infarct BROTHER Sibling Diabetes mellitus BROTHER Daughter Diabetes mellitus Social History Social History Smoking status: Never smoker Second hand tobacco smoke exposure: No Alcohol intake: never Substance use: never Substance use type: does not use Lack of Transportation: No Lack of Food: Never True Current Housing: I Have Housing Concerned About Future Housing: No Difficulty Paying Gas/Electric Bills: No Difficulty Paying for Meds: No Currently Unemployed: No Education: High School Diploma/GED Difficulty w/ Childcare or Family Care: No Gender identity (if verbalized by the patient): Female Spiritual care concerns: No Meds Home Medications and Allergies Home Medications Medication Instructions Recorded Confirmed Type eltrombopag 50 mg tablet 50 mg PO DAILY 07/15/19 11/07/22 History carvedilol 12.5 mg tablet 12.5 mg PO BID #60 tabs 07/28/19 11/07/22 Rx acetaminophen 500 mg capsule 1,000 mg PO TID 11/26/21 11/07/22 History apixaban 5 mg tablet (Eliquis) 5 mg PO BID 11/26/21 11/07/22 History doxycycline hyclate 100 mg capsule 100 mg PO BID 11/26/21 11/07/22 History gabapentin 600 mg tablet 600 mg PO TID 11/26/21 11/07/22 History memantine 10 mg tablet 10 mg PO BID #180 tabs 10/16/22 11/07/22 Rx bumetanide 2 mg tablet 2 mg PO DAILY 11/07/22 11/07/22 History ferrous sulfate 325 mg (65 mg See Rx Instructions .Route .COMPLEX 11/07/22 11/07/22 History iron) tablet Allergies Allergy/AdvReac Type Severity Reaction Status Date / Time Influenza Virus Vaccines Allergy Hives Verified 11/07/22 08:18 pneumococcal vaccine Allergy Hives Verified 11/07/22 08:18 Vital Signs Vital Signs - 24 hr 11/06/22 19:06 11/06/22 23:10 11/06/22 20:00 Pulse Rate 73 83 75 Respiratory Rate 16 15 Blood Pressure 129/77 127/54 L Pulse Oximetry 100 100 Oxygen Delivery Room Air 11/06/22 21:00 11/06/22 22:00 11/07/22 01:27 Pulse Rate 75 74 83 Respiratory Rate 16 14 16 Blood Pressure 119/55 L 116/50 L 134/65 Pulse Oximetry 100 99 100 Oxygen Delivery 11/07/22 01:28 11/07/22 00:00 11/07/22 01:52 Pulse Rate 74 74 77 Respiratory Rate 19 13 14 Blood Pressure 130/51 L 124/40 L Pulse Oximetry 100 100 94 Oxygen Delivery 11/07/22 01:53 11/07/22 02:03 11/07/22 02:25 Pulse Rate 74 79 76 Respiratory Rate 17 13 14 Blood Pressure 127/43 L Pulse Oximetry 99 100 99 Oxygen Delivery 11/07/22 02:31 09
[2022-11-07] MEDS: BUMETANIDE 1 MG TABLET 2 MG PO (13:01)
[2022-11-07] MEDS: GABAPENTIN 300 MG CAPSULE 600 MG PO ×2 (13:01→17:59)
[2022-11-07] MEDS: ACETAMINOPHEN 500 MG TABLET 1000 MG PO ×2 (13:01→17:59)
--- NOTE | 2022-11-07 13:53 | PHAR ---
The patient's home med of PROMACTA (Eltrombopag) 50 mg Tablet has been verified.
--- NOTE | 2022-11-07 19:46 | PC.NURSE ---
Pt arrived to the unit and tolerated transfer well. Pt states that she had walker when she came in and it was left down in ED. ED notified and they stated that they will look into it. Pt was notified. Pt has been compliant with care. Pt has home medication in med drawer on [facility]. 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 Pt has been monitored for any changes in status.
[2022-11-07] MEDS: carvediloL 12.5 MG TABLET PO (21:28)
[2022-11-07] MEDS: APIXABAN 5 MG TABLET PO (21:28)
[2022-11-07] MEDS: MEMANTINE 10 MG TABLET PO (21:30)
[2022-11-08 06:00] VITALS: BP 142/63; PULSE 72; RESP 14; TEMP 36.9; O2SAT 98
[2022-11-08 07:17] LABS: Hematocrit 36.7 % (37.0-47.0); Hemoglobin 11.7 g/dL (12.0-15.0); Mean Corpuscular HGB Conc 31.9 g/dl (32-36); Mean Corpuscular Hemoglobin 33.5 pg (26-34); Mean Corpuscular Volume 105.2 fl (80-100); Mean Platelet Volume 12.1 fl (7.4-10.4); Platelet Count Result 105 k/mm3 (150-375); Red Blood Count 3.49 M/mm3 (4.2-5.4); Red Cell Distribution Width 13.8 % (11.5-14.5); White Blood Count 6.4 K/mm3 (4.5-10.0)
[2022-11-08 07:24] LABS: Anion Gap 7 mmol/L (8-16); Blood Urea Nitrogen 28 mg/dL (7-17); Calcium 8.4 mg/dL (8.4-10.2); Carbon Dioxide 29 mmol/L (22-30); Chloride 103 mmol/L (98-107); Estimated CRCL calculation 64 ml/min; Estimated Glomerular Filt Rate > 60; Glucose 92 mg/dL (65-110); Potassium 3.5 mmol/L (3.4-5.0); Sodium 139 mmol/L (137-145)
[2022-11-08 08:11] VITALS: PULSE 74
[2022-11-08] MEDS: BUMETANIDE 1 MG TABLET 2 MG PO (08:11)
[2022-11-08] MEDS: carvediloL 12.5 MG TABLET PO ×2 (08:11→20:20)
[2022-11-08] MEDS: GABAPENTIN 300 MG CAPSULE 600 MG PO ×3 (08:11→16:54)
[2022-11-08] MEDS: MEMANTINE 10 MG TABLET PO ×2 (08:11→20:21)
[2022-11-08] MEDS: ACETAMINOPHEN 500 MG TABLET 1000 MG PO ×3 (08:11→16:54)
[2022-11-08] MEDS: APIXABAN 5 MG TABLET PO ×2 (08:11→20:21)
[2022-11-08 14:00] VITALS: BP 113/47; PULSE 70; RESP 16; TEMP 36.1; O2SAT 100
--- NOTE | 2022-11-08 14:16 | PM.IMPN ---
Progress Note: A&P Assessment and Plan (1) Acute UTI: Code(s): N39.0 - Urinary tract infection, site not specified Status: Acute Assessment and Plan: Likely contributor to functional decline and generalized weakness, nitrite positive, 1+ leukocyte esterase, 11-20 white blood cells, 4+ urine bacteria no squamous cells. Culture in with Gram-negative bacilli isolated. IV antibiotics. (2) Debility: Code(s): R53.81 - Other malaise Status: Acute Assessment and Plan: PT OT ordered (3) Leg swelling: Code(s): M79.89 - Other specified soft tissue disorders Status: Acute Assessment and Plan: chronic vascular changes and chronic lower extremity edema history dependent edema. Venous ultrasound negative for DVT (4) Dementia: Code(s): F03.90 - Unspecified dementia, unspecified severity, without behavioral disturbance, psychotic disturbance, mood disturbance, and anxiety Status: Acute Assessment and Plan: Home medication Subjective Date/time seen: 11/08/22 14:16 Interval history: No overnight events. Feeling well. Denies any new complaints. No shortness of breath or chest pain. Review of Systems Review of Systems: All systems reviewed & are unremarkable except as noted in HPI and below Exam Narrative: GENERAL: confused, awake and alert, HEENT: Pupils are equally round and briskly reactive to light. Extraocular muscles are intact. Oral mucous membranes are dry without lesions. NECK: The patient has no noted JVD. No adenopathy is appreciated. CHEST/LUNGS: Lungs are clear bilaterally without rhonchi, rales, or wheezes. There is no subcutaneous air appreciated. HEART: The patient has a regular rate and rhythm. No murmurs, rubs, or gallops are appreciated. Distal pulses are 2+. ABDOMEN: The patient's abdomen is soft, nontender, and nondistended. Bowel sounds are positive. No peritoneal signs EXTREMITIES: significant bilateral lower extremity edema with chronic vascular insufficiency changes. There is no focal long bone tenderness or deformity. SKIN: The patient's skin is warm and dry, without rashes or lesions. PSYCHIATRIC: patient is confused, chronic dementia NEUROLOGIC: There are no gross deficits to the cranial nerves. Objective Data Vital Signs Vital Signs: Vital Signs - 24 hr 11/07/22 14:44 11/07/22 21:28 11/07/22 22:00 Temperature 98.0 F Pulse Rate 85 85 Respiratory Rate 16 Blood Pressure 128/41 L Pulse Oximetry 98 Oxygen Delivery Room Air 11/07/22 20:25 11/08/22 06:00 11/08/22 08:11 Temperature 98.4 F Pulse Rate 85 72 74 Respiratory Rate 16 14 Blood Pressure 142/63 H Pulse Oximetry 98 98 Oxygen Delivery Room Air Intake/Output Intake/Output: Intake & Output 11/05/22 11/06/22 11/07/22 11/08/22 23:59 23:59 23:59 23:59 Intake Total 2020 240 Output Total 1400 1200 Balance 620 -960 Meds/Results Medications: Active Medications Generic Name Dose Route Start Last Admin Trade Name Freq PRN Reason Stop Dose Admin Acetaminophen 1,000 mg 11/07/22 13:00 11/08/22 13:14 Acetaminophen 500 Mg Tablet PO 1,000 mg TID HARDEEP Administration Apixaban 5 mg 11/07/22 21:00 11/08/22 08:11 Apixaban 5 Mg Tablet PO 5 mg Q12HR HARDEEP Administration Bumetanide 2 mg 11/07/22 11:40 11/08/22 08:11 Bumetanide 1 Mg Tablet PO 2 mg DAILY HARDEEP Administration Carvedilol 12.5 mg 11/07/22 21:00 11/08/22 08:11 Carvedilol 12.5 Mg Tablet PO 12.5 mg Q12HR HARDEEP Administration Gabapentin 600 mg 11/07/22 13:00 11/08/22 13:14 Gabapentin 300 Mg Capsule PO 600 mg TID HARDEEP Administration Home Med 0 each 11/07/22 13:55 11/08/22 08:13 Home Med Eltrombopag 50 Mg Tablet PO 12/07/22 13:54 1 each DAILY HARDEEP Administration Ceftriaxone Sodium 2 gm in 100 mls @ 200 mls/hr 11/07/22 21:00 11/07/22 21:30 Rocephin 2 Gm/Ns 100 Ml IVPB 200 mls/hr Q24H HARDEEP Administ
[2022-11-08] MEDS: cefTRIAXone 2 GM/NS 100 ML 2 GM/100 ML BAG IVPB (20:19)
[2022-11-08 20:20] VITALS: PULSE 66
[2022-11-08 22:00] VITALS: BP 111/62; PULSE 65; RESP 18; TEMP 35.6; O2SAT 99
[2022-11-09 05:50] LABS: Hematocrit 34.2 % (37.0-47.0); Hemoglobin 11.2 g/dL (12.0-15.0); Immature Platelet Fraction Pct 11.8 % (0.9-11.2); Mean Corpuscular HGB Conc 32.7 g/dl (32-36); Mean Platelet Volume 11.9 fl (7.4-10.4); Platelet Count Result 88 k/mm3 (150-375); Red Blood Count 3.29 M/mm3 (4.2-5.4); Red Cell Distribution Width 13.6 % (11.5-14.5); White Blood Count 5.7 K/mm3 (4.5-10.0)
[2022-11-09 05:59] LABS: Anion Gap 3 mmol/L (8-16); Blood Urea Nitrogen 24 mg/dL (7-17); Calcium 8.3 mg/dL (8.4-10.2); Carbon Dioxide 30 mmol/L (22-30); Chloride 104 mmol/L (98-107); Estimated CRCL calculation 64 ml/min; Estimated Glomerular Filt Rate > 60; Glucose 91 mg/dL (65-110); Potassium 3.9 mmol/L (3.4-5.0); Sodium 137 mmol/L (137-145)
[2022-11-09 06:00] VITALS: BP 106/47; PULSE 72; RESP 18; TEMP 35.8; O2SAT 96
[2022-11-09] MEDS: BUMETANIDE 1 MG TABLET 2 MG PO (08:37)
[2022-11-09] MEDS: ACETAMINOPHEN 500 MG TABLET 1000 MG PO ×3 (08:37→18:11)
[2022-11-09] MEDS: MEMANTINE 10 MG TABLET PO ×2 (08:37→21:12)
[2022-11-09] MEDS: GABAPENTIN 300 MG CAPSULE 600 MG PO ×3 (08:37→18:11)
[2022-11-09] MEDS: APIXABAN 5 MG TABLET PO ×2 (08:37→21:12)
[2022-11-09 08:38] VITALS: PULSE 75
[2022-11-09] MEDS: carvediloL 12.5 MG TABLET PO ×2 (08:38→21:12)
[2022-11-09] MEDS: IBUPROFEN 600 MG TABLET PO (11:35)
[2022-11-09 13:07] VITALS: PULSE 68; O2SAT 96
--- NOTE | 2022-11-09 13:15 | PM.IMPN ---
Progress Note: A&P Assessment and Plan (1) Acute UTI: Code(s): N39.0 - Urinary tract infection, site not specified Status: Acute Assessment and Plan: Likely contributor to functional decline and generalized weakness, nitrite positive, 1+ leukocyte esterase, 11-20 white blood cells, 4+ urine bacteria no squamous cells. Culture in with E coli. IV antibiotics. With switched to cephalexin (2) Debility: Code(s): R53.81 - Other malaise Status: Acute Assessment and Plan: PT OT ordered (3) Leg swelling: Code(s): M79.89 - Other specified soft tissue disorders Status: Acute Assessment and Plan: chronic vascular changes and chronic lower extremity edema history dependent edema. Venous ultrasound negative for DVT (4) Dementia: Code(s): F03.90 - Unspecified dementia, unspecified severity, without behavioral disturbance, psychotic disturbance, mood disturbance, and anxiety Status: Acute Assessment and Plan: Home medication Plan Chronic osteoarthritis hip and knees ibuprofen p.r.n. ordered Subjective Date/time seen: 11/09/22 13:15 Interval history: Complains of leg pain bilaterally. No fever chills. No abdominal pain nausea vomiting. Review of Systems Review of Systems: All systems reviewed & are unremarkable except as noted in HPI and below Exam Narrative: GENERAL: confused, awake and alert, HEENT: Pupils are equally round and briskly reactive to light. Extraocular muscles are intact. Oral mucous membranes are dry without lesions. NECK: The patient has no noted JVD. No adenopathy is appreciated. CHEST/LUNGS: Lungs are clear bilaterally without rhonchi, rales, or wheezes. There is no subcutaneous air appreciated. HEART: The patient has a regular rate and rhythm. No murmurs, rubs, or gallops are appreciated. Distal pulses are 2+. ABDOMEN: The patient's abdomen is soft, nontender, and nondistended. Bowel sounds are positive. No peritoneal signs EXTREMITIES: significant bilateral lower extremity edema with chronic vascular insufficiency changes. There is no focal long bone tenderness or deformity. SKIN: The patient's skin is warm and dry, without rashes or lesions. PSYCHIATRIC: patient is confused, chronic dementia NEUROLOGIC: There are no gross deficits to the cranial nerves. Objective Data Vital Signs Vital Signs: Vital Signs - 24 hr 11/08/22 14:00 11/08/22 15:00 11/08/22 20:20 Temperature 97.0 F L Pulse Rate 70 66 Respiratory Rate 16 Blood Pressure 113/47 L Pulse Oximetry 100 Oxygen Delivery Room Air 11/08/22 22:00 11/08/22 20:00 11/09/22 06:00 Temperature 96.1 F L 96.5 F L Pulse Rate 65 72 Respiratory Rate 18 18 Blood Pressure 111/62 106/47 L Pulse Oximetry 99 96 Oxygen Delivery Room Air 11/09/22 08:38 11/09/22 08:35 11/09/22 13:07 Temperature Pulse Rate 75 68 Respiratory Rate Blood Pressure Pulse Oximetry 96 Oxygen Delivery Room Air Room Air Intake/Output Intake/Output: Intake & Output 11/06/22 11/07/22 11/08/22 11/09/22 23:59 23:59 23:59 23:59 Intake Total 2120 900 530 Output Total 1400 1600 800 Balance 623 -189 -303 Meds/Results Medications: Active Medications Generic Name Dose Route Start Last Admin Trade Name Crescencioq PRN Reason Stop Dose Admin Acetaminophen 1,000 mg 11/07/22 13:00 11/09/22 12:43 Acetaminophen 500 Mg Tablet PO 1,000 mg TID HARDEEP Administration Apixaban 5 mg 11/07/22 21:00 11/09/22 08:37 Apixaban 5 Mg Tablet PO 5 mg Q12HR HARDEEP Administration Bumetanide 2 mg 11/07/22 11:40 11/09/22 08:37 Bumetanide 1 Mg Tablet PO 2 mg DAILY HARDEEP Administration Carvedilol 12.5 mg 11/07/22 21:00 11/09/22 08:38 Carvedilol 12.5 Mg Tablet PO 12.5 mg Q12HR HARDEEP Administration Gabapentin 600 mg 11/07/22 13:00 11/09/22 12:43 Gabapentin 300 Mg Capsule PO 600 mg TID HARDEEP Administration Home Med 0 each
[2022-11-09 14:00] VITALS: BP 102/49; PULSE 60; RESP 18; TEMP 35.6; O2SAT 98
[2022-11-09] MEDS: CEPHALEXIN 500 MG CAPSULE PO (18:11)
[2022-11-09 21:12] VITALS: PULSE 63
[2022-11-09 22:00] VITALS: BP 100/53; PULSE 65; RESP 18; TEMP 36.1; O2SAT 97
[2022-11-10] MEDS: CEPHALEXIN 500 MG CAPSULE PO ×5 (00:39→23:41)
[2022-11-10] MEDS: IBUPROFEN 600 MG TABLET PO ×2 (04:39→12:15)
[2022-11-10 06:00] VITALS: BP 110/58; PULSE 69; RESP 18; TEMP 37.2; O2SAT 97
[2022-11-10 07:08] LABS: Hemoglobin 11.6 g/dL (12.0-15.0); Immature Platelet Fraction Pct 11.8 % (0.9-11.2); Mean Corpuscular HGB Conc 32.2 g/dl (32-36); Mean Corpuscular Hemoglobin 33.7 pg (26-34); Mean Corpuscular Volume 104.7 fl (80-100); Mean Platelet Volume 12.6 fl (7.4-10.4); Platelet Count Result 98 k/mm3 (150-375); Red Blood Count 3.44 M/mm3 (4.2-5.4); Red Cell Distribution Width 13.7 % (11.5-14.5); White Blood Count 5.7 K/mm3 (4.5-10.0)
[2022-11-10 07:12] LABS: Anion Gap 5 mmol/L (8-16); Blood Urea Nitrogen 26 mg/dL (7-17); Calcium 8.3 mg/dL (8.4-10.2); Carbon Dioxide 30 mmol/L (22-30); Chloride 103 mmol/L (98-107); Estimated CRCL calculation 64 ml/min; Estimated Glomerular Filt Rate > 60; Glucose 91 mg/dL (65-110); Potassium 3.9 mmol/L (3.4-5.0); Sodium 138 mmol/L (137-145)
[2022-11-10 08:57] VITALS: PULSE 66
[2022-11-10] MEDS: carvediloL 12.5 MG TABLET PO ×2 (08:57→21:48)
[2022-11-10] MEDS: MEMANTINE 10 MG TABLET PO ×2 (08:57→21:49)
[2022-11-10] MEDS: BUMETANIDE 1 MG TABLET 2 MG PO (08:58)
[2022-11-10] MEDS: APIXABAN 5 MG TABLET PO ×2 (08:58→21:49)
[2022-11-10] MEDS: GABAPENTIN 300 MG CAPSULE 600 MG PO ×3 (08:58→17:36)
[2022-11-10] MEDS: ACETAMINOPHEN 500 MG TABLET 1000 MG PO ×3 (09:00→17:36)
--- NOTE | 2022-11-10 11:57 | PM.IMPN ---
Progress Note: A&P Assessment and Plan (1) Acute UTI: Code(s): N39.0 - Urinary tract infection, site not specified Status: Acute Assessment and Plan: Likely contributor to functional decline and generalized weakness, nitrite positive, 1+ leukocyte esterase, 11-20 white blood cells, 4+ urine bacteria no squamous cells. Culture in with E coli. IV antibiotics. With switched to cephalexin (2) Debility: Code(s): R53.81 - Other malaise Status: Acute Assessment and Plan: PT OT ordered (3) Leg swelling: Code(s): M79.89 - Other specified soft tissue disorders Status: Acute Assessment and Plan: chronic vascular changes and chronic lower extremity edema history dependent edema. Venous ultrasound negative for DVT (4) Dementia: Code(s): F03.90 - Unspecified dementia, unspecified severity, without behavioral disturbance, psychotic disturbance, mood disturbance, and anxiety Status: Acute Assessment and Plan: Home medication Plan Chronic osteoarthritis hip and knees ibuprofen p.r.n. ordered PT OT and SNF placement pending Subjective Date/time seen: 11/10/22 11:57 Interval history: No new complaints. Leg pain bilaterally due to RO underlying chronic osteoarthritis. Working on her word search this morning. Denies any complaints Review of Systems Review of Systems: All systems reviewed & are unremarkable except as noted in HPI and below Exam Narrative: GENERAL: confused, awake and alert, HEENT: Pupils are equally round and briskly reactive to light. Extraocular muscles are intact. Oral mucous membranes are dry without lesions. NECK: The patient has no noted JVD. No adenopathy is appreciated. CHEST/LUNGS: Lungs are clear bilaterally without rhonchi, rales, or wheezes. There is no subcutaneous air appreciated. HEART: The patient has a regular rate and rhythm. No murmurs, rubs, or gallops are appreciated. Distal pulses are 2+. ABDOMEN: The patient's abdomen is soft, nontender, and nondistended. Bowel sounds are positive. No peritoneal signs EXTREMITIES: significant bilateral lower extremity edema with chronic vascular insufficiency changes. There is no focal long bone tenderness or deformity. SKIN: The patient's skin is warm and dry, without rashes or lesions. PSYCHIATRIC: patient is confused, chronic dementia NEUROLOGIC: There are no gross deficits to the cranial nerves. Objective Data Vital Signs Vital Signs: Vital Signs - 24 hr 11/09/22 13:07 11/09/22 14:00 11/09/22 21:12 Temperature 96.0 F L Pulse Rate 68 60 63 Respiratory Rate 18 Blood Pressure 102/49 L Pulse Oximetry 96 98 Oxygen Delivery Room Air 11/09/22 20:00 11/09/22 22:00 11/10/22 06:00 Temperature 97.0 F L 98.9 F Pulse Rate 65 69 Respiratory Rate 18 18 Blood Pressure 100/53 L 110/58 L Pulse Oximetry 97 97 Oxygen Delivery Room Air 11/10/22 08:57 11/10/22 09:00 Temperature Pulse Rate 66 Respiratory Rate Blood Pressure Pulse Oximetry Oxygen Delivery Room Air Intake/Output Intake/Output: Intake & Output 11/07/22 11/08/22 11/09/22 11/10/22 23:59 23:59 23:59 23:59 Intake Total 2120 900 1790 738 Output Total 1400 1600 1300 900 Balance 720 -700 490 -162 Meds/Results Medications: Active Medications Generic Name Dose Route Start Last Admin Trade Name Leah PRN Reason Stop Dose Admin Acetaminophen 1,000 mg 11/07/22 13:00 11/10/22 09:00 Acetaminophen 500 Mg Tablet PO 1,000 mg TID HARDEEP Administration Apixaban 5 mg 11/07/22 21:00 11/10/22 08:58 Apixaban 5 Mg Tablet PO 5 mg Q12HR HARDEEP Administration Bumetanide 2 mg 11/07/22 11:40 11/10/22 08:58 Bumetanide 1 Mg Tablet PO 2 mg DAILY HARDEEP Administration Carvedilol 12.5 mg 11/07/22 21:00 11/10/22 08:57 Carvedilol 12.5 Mg Tablet PO 12.5 mg Q12HR HARDEEP Administration Cephalexin HCl 500 mg 11/09/22 18:00 11/10/22 05:02 Cephalexin
[2022-11-10 14:00] VITALS: BP 126/71; PULSE 62; RESP 14; TEMP 35.5; O2SAT 99
[2022-11-10 21:47] VITALS: BP 126/70; PULSE 67; RESP 18; TEMP 36.6; O2SAT 100
[2022-11-10 21:48] VITALS: PULSE 68
[2022-11-11 05:47] VITALS: BP 121/53; PULSE 68; RESP 16; TEMP 36.4; O2SAT 98
[2022-11-11] MEDS: CEPHALEXIN 500 MG CAPSULE PO ×2 (05:54→13:50)
[2022-11-11 06:53] LABS: Hematocrit 34.6 % (37.0-47.0); Hemoglobin 11.1 g/dL (12.0-15.0); Immature Platelet Fraction Pct 14.3 % (0.9-11.2); Mean Corpuscular HGB Conc 32.1 g/dl (32-36); Mean Corpuscular Hemoglobin 33.4 pg (26-34); Mean Corpuscular Volume 104.2 fl (80-100); Mean Platelet Volume 12.4 fl (7.4-10.4); Platelet Count Result 79 k/mm3 (150-375); Red Blood Count 3.32 M/mm3 (4.2-5.4); Red Cell Distribution Width 13.7 % (11.5-14.5); White Blood Count 5.3 K/mm3 (4.5-10.0)
[2022-11-11 07:03] LABS: Anion Gap 4 mmol/L (8-16); Blood Urea Nitrogen 33 mg/dL (7-17); Calcium 8.1 mg/dL (8.4-10.2); Carbon Dioxide 31 mmol/L (22-30); Chloride 103 mmol/L (98-107); Estimated CRCL calculation 57 ml/min; Estimated Glomerular Filt Rate > 60; Glucose 95 mg/dL (65-110); Potassium 3.7 mmol/L (3.4-5.0); Sodium 138 mmol/L (137-145)
[2022-11-11] MEDS: ACETAMINOPHEN 500 MG TABLET 1000 MG PO ×2 (08:43→13:50)
[2022-11-11] MEDS: MEMANTINE 10 MG TABLET PO (08:43)
[2022-11-11 08:44] VITALS: PULSE 68
[2022-11-11] MEDS: BUMETANIDE 1 MG TABLET 2 MG PO (08:44)
[2022-11-11] MEDS: GABAPENTIN 300 MG CAPSULE 600 MG PO ×2 (08:44→13:50)
[2022-11-11] MEDS: APIXABAN 5 MG TABLET PO (08:44)
[2022-11-11] MEDS: carvediloL 12.5 MG TABLET PO (08:44)
[2022-11-11 14:00] VITALS: BP 118/60; PULSE 68; RESP 16; TEMP 35.7; O2SAT 98
--- NOTE | 2022-11-11 15:08 | PM.DS ---
DS: Admitting Diagnosis Discharge Date 11/11/2022 Admitting Diagnosis Confusion DS: Discharge Diagnosis Discharge Diagnosis (1) Acute UTI: Code(s): N39.0 - Urinary tract infection, site not specified Status: Acute (2) Debility: Code(s): R53.81 - Other malaise Status: Acute (3) Leg swelling: Code(s): M79.89 - Other specified soft tissue disorders Status: Acute (4) Dementia: Code(s): F03.90 - Unspecified dementia, unspecified severity, without behavioral disturbance, psychotic disturbance, mood disturbance, and anxiety Status: Acute DS: Summary Hospital Course Hospital Course: 77-year-old female presents for generalized weakness. She typically ambulates with walker but since recently had has not been able to get up and move around much. Has chronic bilateral lower extremity edema. Patient has underlying dementia has history of thrombocytopenia with ITP. Workup revealed UTI urine culture grew E coli and was transition to oral antibiotic. She remained hemodynamically stable during the hospital stay. X-ray of the pelvis and right hip reveals severe degenerative changes. She has chronic osteoarthritis and related pain. PT OT was consulted and she was suggested to go to rehab facility from hospital which was arranged with the help of care coordination. Time Spent with Patient Time attestation: Total time spent providing and/or coordinating discharge services: 45 minutes Exam Narrative: GENERAL: confused, awake and alert, HEENT: Pupils are equally round and briskly reactive to light. Extraocular muscles are intact. Oral mucous membranes are dry without lesions. NECK: The patient has no noted JVD. No adenopathy is appreciated. CHEST/LUNGS: Lungs are clear bilaterally without rhonchi, rales, or wheezes. There is no subcutaneous air appreciated. HEART: The patient has a regular rate and rhythm. No murmurs, rubs, or gallops are appreciated. Distal pulses are 2+. ABDOMEN: The patient's abdomen is soft, nontender, and nondistended. Bowel sounds are positive. No peritoneal signs EXTREMITIES: significant bilateral lower extremity edema with chronic vascular insufficiency changes. There is no focal long bone tenderness or deformity. SKIN: The patient's skin is warm and dry, without rashes or lesions. PSYCHIATRIC: patient is confused, chronic dementia NEUROLOGIC: There are no gross deficits to the cranial nerves. DS: Data Data Completed and Pending Labs on day of discharge: Labs from last 24 hours 09/25/23 06:24 WBC 5.3 RBC 3.32 L Hgb 11.1 L Hct 34.6 L MCV 104.2 H MCH 33.4 MCHC 32.1 RDW 13.7 Plt Count 79 L MPV 12.4 H % Immature Plt Fraction 14.3 H Sodium 138 Potassium 3.7 Chloride 103 Carbon Dioxide 31 H Anion Gap 4 L BUN 33 H Creatinine 0.80 Estim Creat Clear Calc 57 Estimated GFR > 60 Glucose 95 Calcium 8.1 L Imaging Radiologist's impression: ITS Impressions Chest X-Ray 11/06/22 22:55 IMPRESSION: No active pulmonary disease Pelvis X-Ray 11/07/22 05:34 Impression: No acute fracture or dislocation. Severe osteoarthritis of the bilateral hip joints, as detailed above. Lumbosacral spinal fixation hardware, partially imaged. Hip X-Ray 11/07/22 06:12 Impression: Severe osteoarthritis of the right hip joint. No acute fracture or dislocation. Venous Doppler Study 11/07/22 15:34 IMPRESSION: 1. Patent bilateral lower extremity veins. No evidence of deep venous thrombosis. Peroneal veins not well evaluated due to skin thickening. Discharge Plan Discharge Attending physician on discharge: Raman Salinas Discharging Clinician: Raman Salinas Anticipated Discharge Date/Time: 11/11/22 15:06 Patient Disposition: Inpatient Rehab Facility Activity: as tolerated Diet: as tolerated and heart healthy Patient Instructions: Antibiotic Form, Apixaban (By ishaan
--- NOTE | 2022-11-11 16:21 | PC.NURSE ---
called report to Neha at [facility]. IV is out, patient is resting comfortably, called daughter Aleah to inform her of transfer. Just waiting on EMS to arrive.
--- NOTE | 2022-11-11 18:17 | PC.NURSE ---
home med sent with [facility] with personal belongings
== END 2022-11-11 18:15 | DRG 690 ==
LOC: ANHED 11-07 05:26 → ANH3MEDSUR 11-07 06:18
PROVIDERS: Nurse Practitioner; Admitting Provider Family Medicine; Emergency Provider Student in an Organized Health Care Education/Training Program; PCP Family Medicine; Visit Provider Internal Medicine
DX: N39.0 Urinary tract infection, site not specified (principal); D69.3 Immune thrombocytopenic purpura; B96.20 Unspecified Escherichia coli [E. coli] as the cause of diseases classified elsewhere; F03.90 Unspecified dementia, unspecified severity, without behavioral disturbance, psychotic disturbance, mood disturbance, and anxiety; I48.91 Unspecified atrial fibrillation; M16.0 Bilateral primary osteoarthritis of hip; M79.89 Other specified soft tissue disorders; R53.81 Other malaise; Z86.718 Personal history of other venous thrombosis and embolism; Z79.01 Long term (current) use of anticoagulants
CPT/HCPCS: 36415; 71045; 72170; 73502; 80048; 80053; 81001; 82550; 83735; 83880; 84443; 84484; 85025; 85027; 85055; 85610; 85730; 86140; 87077; 87086; 87088; 87186; 93005; 93970; 96365; 97110; 97161; 97165; 97530; 97535; 99285; A9270; J0696; J7120

== ENCOUNTER 2023-03-23 13:19 | Inpatient (IN) | payer MEDICARE, SELFPAY ==
--- NOTE | ~2023-03-23 | XR_ITS ---
EXAMINATION: XR chest 1V portable INDICATION: Altered mental status TECHNIQUE: Portable AP chest at 1330 hours COMPARISON: 11/06/2022 FINDINGS: The lungs are free of acute opacities. No pleural effusion or pneumothorax. The cardiomedia stinal silhouette is normal. Cranial migration of the humeral heads with respect to the glenoids is c onsistent with chronic rotator cuff tears. IMPRESSION: 1. No acute cardiopulmonary abnormality. Reviewed, dictated and finalized at location A. NE EDITOR
[2023-03-23 13:20] VITALS: BP 106/63; PULSE 72; RESP 18; TEMP 36.6; O2SAT 98
--- NOTE | 2023-03-23 13:29 | ECG_ITS ---
Measurements Intervals [place] Rate: 72 P: 47 [place]: 153 QRS: 5 QRSD: 111 T: 30 QT: 414 QTc: 453 Interpretive Statements SINUS RHYTHM WITHIN NORMAL LIMITS COMPARED TO ECG 11/06/2022 22:26:19 NO DIFFERENCE Electronically Signed On 03-24-2023 7:29:29 PHOTOGRAPH TINTER by Stewart Lainez M.D.
--- NOTE | 2023-03-23 13:41 | ED.GENADULT ---
HPI - General Adult General Chief complaint: Weakness Stated complaint: AMS, dizzy Time Seen by Provider: 03/23/23 13:26 History of Present Illness HPI narrative: 77-year-old female presented to the emergency department for evaluation of increased generalized weakness. Patient does live at home on her own. Patient had a recent stay at rehab and was recently discharged back to her home. Family states that the patient is having difficulty caring for self. Patient denies any difficulty caring for herself. Patient does smell strongly of urine. Related Data Home Medications Medication Instructions Recorded Confirmed acetaminophen 500 mg capsule 1,000 mg PO TID 11/26/21 03/23/23 apixaban 5 mg tablet (Eliquis) 5 mg PO BID 11/26/21 03/23/23 gabapentin 600 mg tablet 600 mg PO TID 11/26/21 03/23/23 bumetanide 2 mg tablet 2 mg PO DAILY 11/07/22 03/23/23 ferrous sulfate 325 mg (65 mg 325 mg PO DAILY 11/07/22 03/23/23 iron) tablet hydrocodone 5 mg-acetaminophen 325 1 tablet PO BID PRN Pain (Scale 03/23/23 03/23/23 mg tablet Score 7-10) Allergies Allergy/AdvReac Type Severity Reaction Status Date / Time Influenza Virus Vaccines Allergy Hives Verified 11/07/22 08:18 pneumococcal vaccine Allergy Hives Verified 11/07/22 08:18 Review of Systems Review of Systems: All systems reviewed & are unremarkable except as noted in HPI and below PMFSH Past Medical History Medical History (Updated 03/23/23 @ 18:23 by Calixto Hamilton MD) Atrial fibrillation Chronic ITP (idiopathic thrombocytopenia) Dementia DVT (deep venous thrombosis) Rt LE June 2019 Osteoarthritis Surgical History Surgical History (Updated 03/23/23 @ 18:23 by Calixto Hamilton MD) History of back surgery T12-L1 and L5-S1 fracture with spinal fusion [id number]. S/P IVC filter IVC filter placed and then removed. Family History Family History Father Cerebrovascular accident Sibling Lung cancer Cerebrovascular accident Sibling CAD (coronary artery disease) BROTHER Mother Parkinson disease Sibling Myocardial infarct BROTHER Sibling Diabetes mellitus BROTHER Daughter Diabetes mellitus Social History Social History (Updated 03/23/23 @ 18:15 by Calixto Hamilton MD) Social History: No alcohol, tobacco or drug use. She lives alone. She is a full code. Her daughter Mora is the individual who makes medical decisions for her. Smoking status: Never smoker Second hand tobacco smoke exposure: No Alcohol intake: never Substance use: never Substance use type: does not use Do You Feel Safe in your Home?: Yes Lack of Transportation: No Lack of Food: Never True Current Housing: I Have Housing Concerned About Future Housing: No Difficulty Paying Gas/Electric Bills: No Difficulty Paying for Meds: No Currently Unemployed: No Education: High School Diploma/GED Difficulty w/ Childcare or Family Care: No Gender identity (if verbalized by the patient): Female Spiritual care concerns: Yes (latter day) Exam Narrative: APPEARANCE: Well appearing, no pain, no distress, well-nourished. HEAD: normocephalic, atraumatic. EYES: PERRLA/EOMI, conjunctivae clear. NOSE: Normal no drainage EARS:TMS clear with good light reflex. THROAT: Pharynx clear, no exudate. NECK: Supple. No adenopathy, no masses. RESPIRATORY: Airway patent, respirations nonlabored. Clear to auscultation bilaterally, no rales, rhonchi, wheezing. CARDIOVASCULAR: Regular rate and rhythm without murmurs rubs or gallops. ABDOMINAL: Soft, nontender, nondistended, normal bowel sounds MUSCULOSKELETAL: Moves all extremities. Lower extremity edema with changes of chronic venous stasis NEURO: Alert. Cranial nerves II through XII intact. Grossly intact SKIN: Warm, dry. Normal Color Course Course Emergency Course: 77-year-old female presents to the emergency department for evalu
[2023-03-23 13:48] LABS: Basophils Absolute Auto 0.1 K/mm3 (0.0-0.1); Basophils Percent Auto 0.6 % (0.2-1.2); Eosinophils Absolute Auto 0.1 K/mm3 (0-0.3); Eosinophils Percent Auto 0.6 % (0-4.4); Hematocrit 38.1 % (37.0-47.0); Hemoglobin 12.4 g/dL (12.0-15.0); Immature Granulocyte Absolute 0.03 K/mm3 (0.00-0.031); Immature Granulocyte Percent A 0.3 % (0-0.5); Lymphocytes Percent Auto 21.6 % (18.3-44.2); Mean Corpuscular HGB Conc 32.5 g/dl (32-36); Mean Corpuscular Hemoglobin 33.7 pg (26-34); Mean Corpuscular Volume 103.5 fl (80-100); Mean Platelet Volume 11.5 fl (7.4-10.4); Monocytes Absolute Auto 0.8 K/mm3 (0.1-0.6); Monocytes Percent Auto 9.6 % (2.6-8.5); Neutrophils Absolute Auto 5.9 K/mm3 (1.3-6.7); Neutrophils Percent Auto 67.3 % (45.5-73.1); Platelet Count Result 164 k/mm3 (150-375); Red Blood Count 3.68 M/mm3 (4.2-5.4); Red Cell Distribution Width 13.7 % (11.5-14.5); White Blood Count 8.8 K/mm3 (4.5-10.0)
[2023-03-23 14:14] LABS: NT Pro B Type Natriuretic Pept 1610 pg/mL (19.9-100)
[2023-03-23 14:22] VITALS: BP 109/44; PULSE 69; RESP 14; O2SAT 100
[2023-03-23 14:45] LABS: Influenza A QL RT-PCR Negative (Negative); Influenza B QL RT-PCR Negative (Negative); RSV RNA, RT-PCR Negative (Negative); SARS-CoV-2 RNA PCR Negative (Negative)
[2023-03-23 14:54] LABS: Alanine Aminotransferase 20 U/L (6-35); Albumin Level 3.3 g/dL (3.5-5.1); Alkaline Phosphatase 180 U/L (38-126); Anion Gap 6 mmol/L (8-16); Aspartate Amino Transferase 35 U/L (14-36); Bilirubin,Total 1.4 mg/dL (0.2-1.3); Blood Urea Nitrogen 31 mg/dL (7-17); Calcium 8.9 mg/dL (8.4-10.2); Carbon Dioxide 29 mmol/L (22-30); Chloride 105 mmol/L (98-107); Estimated CRCL calculation 65 ml/min; Estimated Glomerular Filt Rate > 60; Glucose 97 mg/dL (65-110); Potassium 3.6 mmol/L (3.4-5.0); Sodium 140 mmol/L (137-145)
[2023-03-23 15:15] LABS: Appearance Urine Clear (Clear); Bacteria Urine 4+ /hpf; Bilirubin Urine Negative (Negative); Blood Urine Negative (Negative); Color Urine Yellow (Yellow); Glucose Urine UA Negative (Negative); Ketones Urine Trace mg/dL (Negative); Leukocyte Esterase Ur 2+ LEU/UL (Negative); Nitrate Urine Positive (Negative); Non Pathogenic Casts 0-2; Protein Urine Negative (Negative); RBC Urine 0-2 /hpf (0-2); Specific Grav Ur 1.014 (1.001-1.035); Squamous Epithelial Cell Urine None seen /hpf (Few); pH Urine 6.5 (5.0-9.0)
[2023-03-23 15:31] LABS: Add Urine Microscopic? YES
--- NOTE | 2023-03-23 17:46 | PM.IMHP ---
H&P: HPI History of Present Illness Date/Time: 03/23/23 17:46 Chief Complaint: Weakness Narrative: 77yo female with dementia, pAFib on Eliquis, ITP and chronic severe traumatic lower extremity neuropathy here for weakness. Patient had a severe fall in June 2019 fracturing T12-L1 and L5-S1. She underwent surgery with fusion from T10 to the pelvis. Patient was hospitalized here in October for UTI and debility. Urine culture grew E.Coli that was relatively tan-sensitive. She was discharged to [facility] and then to SNF. She returned home on 01/25/23. She normally walks with a walker but has difficulty ambulating and is unsteady. The patient lives alone and has PT/OT to the house once per week and a nurse once per week. A daughter stays with the patient from 730-5 daily. The patient normally sleeps in a recliner that is also a chair lift. She also has trouble getting up to standing position due to osteoarthritis of the bilateral shoulders and cervical spine stenosis. About 2 weeks ago, the patient complained to the nurse that she had dysuria. A UA was checked and she was started on abx for 7 days. She completed the abx one week ago. Since being off the abx for the 7 days, the patient (and family) deny fever, chills, chest pain, shortness of breath, cough, palpitations, nausea, vomiting, dysuria, changes in her current mental status or changes in her chronic pedal edema. The patient has chronic bilateral leg pain but family state that about 4-5 days ago, the patient developed increasing bilateral leg pain making it difficult for her to get herself up to a walker from the chair. The family is having difficulty taking care of her at her home. She was brought in by EMS for further evaluation. In the ED, patient was hemodynamically stable. Influenza, COVID and RSV PCR was negative. UA was concerning for UTI. Urine culture was collected and Rocephin given. EKG showing sinus rhythm and incomplete right bundle branch block and minimal ST depression. Chest x-ray was clear. CBC was normal with macrocytosis. CMP was normal except for BUN 31, total bili 1.4 and AlkPhos 180. BNP 1610. She was admitted for further care. Review of Systems Review of Systems: All systems reviewed & are unremarkable except as noted in HPI and below (Majority of the hx obtained from family) [facility] Past Medical History Medical History (Updated 03/23/23 @ 18:23 by Calixto Hamilton MD) Atrial fibrillation Chronic ITP (idiopathic thrombocytopenia) Dementia DVT (deep venous thrombosis) Rt LE June 2019 Osteoarthritis Surgical History Surgical History (Updated 03/23/23 @ 18:23 by Calixto Hamilton MD) History of back surgery T12-L1 and L5-S1 fracture with spinal fusion [id number]. S/P IVC filter IVC filter placed and then removed. Family History Family History Father Cerebrovascular accident Sibling Lung cancer Cerebrovascular accident Sibling CAD (coronary artery disease) BROTHER Mother Parkinson disease Sibling Myocardial infarct BROTHER Sibling Diabetes mellitus BROTHER Daughter Diabetes mellitus Social History Social History (Updated 03/23/23 @ 18:15 by Calixto Hamilton MD) Social History: No alcohol, tobacco or drug use. She lives alone. She is a full code. Her daughter Mora is the individual who makes medical decisions for her. Smoking status: Never smoker Second hand tobacco smoke exposure: No Alcohol intake: never Substance use: never Substance use type: does not use Do You Feel Safe in your Home?: Yes Lack of Transportation: No Lack of Food: Never True Current Housing: I Have Housing Concerned About Future Housing: No Difficulty Paying Gas/Electric Bills: No Difficulty Paying for Meds: No Currently Unemployed: No Education: High School Diploma/GED Difficulty w/ Childcare or Family Care: No Gender identity (if verbalized by the patient): F
[2023-03-23 18:15] VITALS: BP 124/39; PULSE 71; RESP 18; TEMP 36.7; O2SAT 100
--- NOTE | 2023-03-23 19:01 | PHAR ---
RX # [id number] IDENTIFIED TO CONTAIN: DRUG NAME: PROMACTA INGREDIENTS: ELTROMBOPAG OLAMINE -- 50 MG COLOR: BLUE SHAPE: WASHOE IMPRINT: GS UFU 50
[2023-03-23 20:00] VITALS: PULSE 115; RESP 18; O2SAT 100
[2023-03-23 21:10] VITALS: BP 138/59; PULSE 115; RESP 18; TEMP 35.9; O2SAT 100
[2023-03-23] MEDS: APIXABAN 5 MG TABLET PO (22:17)
[2023-03-23] MEDS: GABAPENTIN 300 MG CAPSULE 600 MG PO (22:17)
[2023-03-23] MEDS: carvediloL 3.125 MG TABLET PO (22:17)
[2023-03-23] MEDS: SODIUM CHLORIDE 0.9% IV 1,000 ML 70 ML IV CONT (22:17)
[2023-03-24] MEDS: ACETAMINOPHEN 500 MG TABLET PO (02:36)
[2023-03-24] MEDS: GABAPENTIN 300 MG CAPSULE 600 MG PO ×3 (05:22→21:17)
[2023-03-24] MEDS: ACETAMINOPHEN 500 MG TABLET 1000 MG PO ×3 (05:24→21:18)
[2023-03-24 06:45] VITALS: BP 111/41; PULSE 70; RESP 20; TEMP 36.1; O2SAT 98
[2023-03-24 06:50] LABS: Albumin Level 2.6 g/dL (3.5-5.1); Anion Gap 5 mmol/L (8-16); Blood Urea Nitrogen 25 mg/dL (7-17); Calcium 8.2 mg/dL (8.4-10.2); Carbon Dioxide 25 mmol/L (22-30); Chloride 108 mmol/L (98-107); Estimated CRCL calculation 65 ml/min; Estimated Glomerular Filt Rate > 60; Glucose 82 mg/dL (65-110); Magnesium 2.1 mg/dL (1.6-2.3); Phosphorus 3.3 mg/dL (2.5-4.5); Potassium 3.4 mmol/L (3.4-5.0); Sodium 138 mmol/L (137-145)
[2023-03-24 07:53] LABS: Folic Acid 13.8 ng/mL (2.76->20)
[2023-03-24 08:00] VITALS: O2SAT 98
[2023-03-24 08:09] VITALS: PULSE 70
[2023-03-24] MEDS: carvediloL 3.125 MG TABLET PO (08:09)
[2023-03-24] MEDS: APIXABAN 5 MG TABLET PO ×2 (08:10→21:20)
[2023-03-24] MEDS: MEMANTINE 10 MG TABLET PO ×2 (08:10→16:41)
[2023-03-24] MEDS: EUCERIN CREAM 120 GM JAR 1 APPLIC TOPICAL (09:32)
[2023-03-24] MEDS: SODIUM CHLORIDE 0.9% IV 1,000 ML 70 ML IV CONT (12:17)
--- NOTE | 2023-03-24 13:11 | PM.IMPN ---
Progress Note: A&P Assessment and Plan (1) Acute UTI: Code(s): N39.0 - Urinary tract infection, site not specified Status: Acute Assessment and Plan: UA is consistent with UTI. UCx collected. Rocephin started. UCx pending. Follow up on UCx results. (2) Debility: Code(s): R53.81 - Other malaise Status: Acute Assessment and Plan: Patient with chronic debility most likely worsened by her UTI. Chronic debility related to her lower spinal injury and surgery. PT and OT has been ordered. Care coordination has been consulted for discussion about placement (3) Atrial fibrillation: Code(s): I48.91 - Unspecified atrial fibrillation Status: Acute Assessment and Plan: EKG showing normal sinus rhythm on admission. Mild irregularity noted on exam today. Coreg has been resumed but at lower dose due to her soft blood pressure. Eliquis has been resumed. Blood pressure is better so will advance Coreg. Continue to monitor and advance Coreg back to her home dose as she tolerates. (4) Dementia: Code(s): F03.90 - Unspecified dementia, unspecified severity, without behavioral disturbance, psychotic disturbance, mood disturbance, and anxiety Status: Acute Assessment and Plan: Patient with underlying chronic dementia. B12, TSH and folate levels were normal. Continue Namenda. (5) Chronic ITP (idiopathic thrombocytopenia): Code(s): D69.3 - Immune thrombocytopenic purpura Status: Acute Assessment and Plan: Patient with chronic ITP. She is on treatment for this. Platelet count was normal on admission. Follow intermittently. (6) Osteoarthritis: Code(s): M19.90 - Unspecified osteoarthritis, unspecified site Status: Acute Assessment and Plan: Stable. Therapy has been started. (7) Chronic leg pain: Code(s): M79.606 - Pain in leg, unspecified; G89.29 - Other chronic pain Status: Acute Assessment and Plan: Chronic related to her neuropathy from her back fracture and surgery. Continue to follow Plan DVT prophylaxis -Eliquis Code status -full Disposition -yet to be determined but can be discharged at any time Subjective Date/time seen: 03/24/23 13:11 Interval history: 77yo female with dementia, pAFib on Eliquis, ITP and chronic severe traumatic lower extremity neuropathy here for weakness.? Patient alert but confused. She denies any problems overnight. No CP or SOB. Exam Narrative: AF 96.9 111/41 70 20 98% ra Gen - NARD sitting in a recliner Chest - CTA bilaterally, nml RR CV - RRR with extra beats S1/S2 Abd - soft. Obese. NT/ND. +BS Ext - chronic venous stasis skin changes and chronic lymphedema Neuro - patient is alert but confused Psych - Patient is pleasantly confused and cooperative. Skin - warm and dry. Objective Data Vital Signs Vital Signs: Vital Signs - 24 hr 03/23/23 13:20 03/23/23 14:22 03/23/23 18:15 Temperature 97.8 F 98.1 F Pulse Rate 72 69 71 Respiratory Rate 18 14 18 Blood Pressure 106/63 109/44 L 124/39 L Pulse Oximetry 98 100 100 Oxygen Delivery Room Air 03/23/23 18:38 03/23/23 21:10 03/23/23 20:00 Temperature 96.6 F L Pulse Rate 115 H 115 H Respiratory Rate 18 18 Blood Pressure 138/59 L Pulse Oximetry 100 100 Oxygen Delivery Room Air Room Air 03/24/23 06:45 03/24/23 08:09 03/24/23 08:38 Temperature 96.9 F L Pulse Rate 70 70 Respiratory Rate 20 Blood Pressure 111/41 L Pulse Oximetry 98 Oxygen Delivery Room Air 03/24/23 08:00 Temperature Pulse Rate Respiratory Rate Blood Pressure Pulse Oximetry 98 Oxygen Delivery Room Air Intake/Output Intake/Output: Intake & Output 03/21/23 03/22/23 03/23/23 03/24/23 23:59 23:59 23:59 23:59 Intake Total 50 1540 Balance 50 1540 Meds/Results Medications: Active Medications Generic Name Dose Route Start Last Admin Tra
[2023-03-24 15:10] VITALS: BP 116/47; PULSE 70; RESP 16; TEMP 36.4; O2SAT 100
[2023-03-24 21:19] VITALS: PULSE 73
[2023-03-24] MEDS: carvediloL 6.25 MG TABLET PO (21:19)
[2023-03-24] MEDS: traMADol HCL (*CRX) 25 MG TABLET PO (21:20)
[2023-03-24 22:00] VITALS: BP 116/44; PULSE 73; RESP 18; TEMP 36.8; O2SAT 99
[2023-03-25] MEDS: traMADol HCL (*CRX) 25 MG TABLET PO ×2 (03:49→12:54)
[2023-03-25] MEDS: GABAPENTIN 300 MG CAPSULE 600 MG PO ×2 (05:45→15:54)
[2023-03-25] MEDS: ACETAMINOPHEN 500 MG TABLET 1000 MG PO ×2 (05:45→15:54)
[2023-03-25 06:00] VITALS: BP 128/57; PULSE 71; RESP 18; TEMP 36.5; O2SAT 100
[2023-03-25 09:00] VITALS: BP 106/52; PULSE 66; RESP 18; TEMP 36.6; O2SAT 100
[2023-03-25] MEDS: APIXABAN 5 MG TABLET PO (09:01)
[2023-03-25 09:02] VITALS: PULSE 66
[2023-03-25] MEDS: carvediloL 6.25 MG TABLET PO (09:02)
[2023-03-25] MEDS: MEMANTINE 10 MG TABLET PO ×2 (09:02→17:31)
[2023-03-25] MEDS: EUCERIN CREAM 120 GM JAR 1 APPLIC TOPICAL (09:05)
--- NOTE | 2023-03-25 13:39 | PM.DS ---
DS: Admitting Diagnosis Discharge Date 03/25/23 Admitting Diagnosis Weakness DS: Discharge Diagnosis Discharge Diagnosis (1) Acute UTI: Code(s): N39.0 - Urinary tract infection, site not specified Status: Acute (2) Debility: Code(s): R53.81 - Other malaise Status: Acute (3) Atrial fibrillation: Code(s): I48.91 - Unspecified atrial fibrillation Status: Acute (4) Dementia: Code(s): F03.90 - Unspecified dementia, unspecified severity, without behavioral disturbance, psychotic disturbance, mood disturbance, and anxiety Status: Acute (5) Chronic ITP (idiopathic thrombocytopenia): Code(s): D69.3 - Immune thrombocytopenic purpura Status: Acute (6) Osteoarthritis: Code(s): M19.90 - Unspecified osteoarthritis, unspecified site Status: Acute (7) Chronic leg pain: Code(s): M79.606 - Pain in leg, unspecified; G89.29 - Other chronic pain Status: Acute DS: Summary Hospital Course Reason for hospitalization: 77yo female with dementia, pAFib on Eliquis, ITP and chronic severe traumatic lower extremity neuropathy here for weakness.?Please see H&P for details. Hospital Course: Patient brought in to the ED for weakness. Patient with chronic debility most likely worsened by her UTI.?UA was consistent with UTI. UCx collected. Rocephin started. UCx growing relatively tan-sensitive EColi. EKG showing normal sinus rhythm on admission.?Coreg was resumed but at lower dose due to her soft blood pressure. Heart rate remained well controlled. Eliquis was resumed. Patient with underlying chronic dementia.? B12, TSH and folate levels were normal. We continued Namenda. Patient with chronic ITP.? She is on treatment for this. Platelet count was normal on admission. She has chronic debility related to her lower spinal injury and surgery. She worked with PT and OT. Care coordination was consulted for discussion about placement. She was accepted at [facility]. She was able to be discharged on 03/25/23. Status at Discharge Cognitive/behavioral status at discharge: stable Time Spent with Patient Time attestation: Total time spent providing and/or coordinating discharge services: 35 minutes Time spent: Greater than 30 minutes Exam Narrative: AF 97.9 106/52 66 18 100% ra Gen - NARD Chest - CTA bilaterally, nml RR CV - RRR with extra beats S1/S2 Abd - soft. Obese. NT/ND. +BS Ext - chronic venous stasis skin changes and chronic lymphedema Neuro - alert but confused Psych - pleasantly confused and cooperative. Skin - warm and dry. Discharge Plan Discharge Attending physician on discharge: Calixto Hamilton Discharging Clinician: Calixto Hamilton Anticipated Discharge Date/Time: 03/25/23 13:46 Patient Disposition: [facility] Activity: as tolerated Diet: heart healthy Discharge Instructions: Check blood pressure 1 to 2 times a day. Record for the doctor's review. Take precautions to avoid falls. Rise slowly from a lying or sitting position. Pause before standing or walking. Check daily morning weights after voiding. Call the doctor if the patient gains more than 3 lb in 2 days or 5 lb in 1 week. Contact the doctor if the patient has any type of trauma, lightheadedness with standing or other worrisome symptoms. Avoid NSAIDs (ibuprofen, naproxen, Aleve). Tylenol is safe to take. Follow-up with the provider at the facility. Thank you for using [facility] for your health care needs. Follow-up/Referrals: Edmar,Lula Ba MD [Primary Care Provider] - Call for Appointment Discharge Medications: New tramadol 25 mg tablet 25 mg PO Q6H PRN (Reason: pain (scale score 7-10)) Qty: 10 0RF Minerin Creme Cream 1 applic topical DAILY Qty: 113 0RF Rx Instructions: to bilateral lower extremity intact skin cefdinir 300 mg capsule 300 mg PO Q12H 2 Days Qty: 4 0RF Rx Instructions:
[2023-03-25 14:00] VITALS: BP 107/39; PULSE 79; RESP 18; TEMP 36.8; O2SAT 98
--- NOTE | 2023-03-25 14:03 | PCPTNOTE ---
The patient treatment was not able to be completed at this time due to nursing students assisting patient with bathing. Will plan to continue treatment per plan of care.
== END 2023-03-25 19:35 | DRG 690 ==
LOC: ANHED 16:38 → ANH3MEDSUR 17:27
PROVIDERS: Admitting Provider Internal Medicine; Emergency Provider Emergency Medicine; PCP Family Medicine; Visit Provider Internal Medicine
DX: N39.0 Urinary tract infection, site not specified (principal); D69.3 Immune thrombocytopenic purpura; B96.20 Unspecified Escherichia coli [E. coli] as the cause of diseases classified elsewhere; F03.90 Unspecified dementia, unspecified severity, without behavioral disturbance, psychotic disturbance, mood disturbance, and anxiety; I48.0 Paroxysmal atrial fibrillation; R53.81 Other malaise; M19.90 Unspecified osteoarthritis, unspecified site; M79.606 Pain in leg, unspecified; G89.29 Other chronic pain; G62.9 Polyneuropathy, unspecified; Z20.822 Contact with and (suspected) exposure to COVID-19; Z79.01 Long term (current) use of anticoagulants; Z86.718 Personal history of other venous thrombosis and embolism; Z98.1 Arthrodesis status
CPT/HCPCS: 36415; 71045; 80053; 80069; 81001; 82607; 82746; 83735; 83880; 84443; 85025; 87086; 87186; 87637; 93005; 96365; 97161; 97166; 97530; 97535; 99285; A9270; G0378; J0696; J7030